=== PATIENT | female | born 1930 | race Caucasian/White ===

== ENCOUNTER 2016-08-07 22:56 | Observation (INO) | payer BC ==
[2016-08-07 23:09] VITALS: BMI 31.2
--- NOTE | 2016-08-07 23:48 | PDOC ---
History of Present Illness - General History Source: Patient Exam Limitations: No Limitations - History of Present Illness Initial Comments: 08/07/16 23:58 The patient is a 85 year old female with significant past medical history of hypertension, hyperlipidemia, CAD s/p cardiac stent (February 2016), gout, and seizure disorder who presents to the ED with SOB and abdominal bloating that began earlier today. Patient reports she was in her usual state of health when she felt short of breath with abdominal bloating. She states feeling relieved after belching, but her symptoms return shortly after. She denies diaphoresis, lightheadedness, chest pain, shoulder pain, arm pain, jaw pain, nausea, and vomiting. Patient was recently admitted for SOB about 1 month ago, where she was treated and discharge. She states her symptoms are consistent to when she had her stent inserted few months ago. The patient denies fever, chills, cough, abdominal pain, and diarrhea. Allergies: codeine Social History: No alcohol, tobacco, or drug use reported. Past Surgical History: stent 2015, herniated disc surgery 15 years ago, hysterectomy, lipoma removal on right shoulder PCP: Dr. Pb Zimmerman <Deb Robertson - Last Filed: 08/08/16 02:23> - General History Source: Patient <Andrew Beard - Last Filed: 08/08/16 19:23> - General Chief Complaint: Shortness of Breath Stated Complaint: SHORTNESS OF BREATH Time Seen by Provider: 08/07/16 23:48 Past History <Deb Robertson - Last Filed: 08/08/16 02:23> - Past Medical History HTN: Yes Hypercholesterolemia: Yes Seizures: Yes - Surgical History Cardiac Surgery: Yes (angioplasty) - Immunization History Immunization Up to Date: Yes - Psycho/Social/Smoking Cessation Hx Anxiety: No Suicidal Ideation: No Smoking History: Never smoked Number of Cigarettes Smoked Daily: 0 Information on smoking cessation initiated: No Hx Alcohol Use: No Drug/Substance Use Hx: No Substance Use Type: None <Andrew Beard - Last Filed: 08/08/16 19:23> - Past Medical History Allergies/Adverse Reactions: Allergies Allergy/AdvReac Type Severity Reaction Status Date / Time codeine Allergy Verified 08/07/16 23:03 Home Medications: Ambulatory Orders Allopurinol [Zyloprim -] 100 mg PO DAILY 07/13/16 Amitriptyline HCl [Elavil -] 25 mg PO HS 07/13/16 Amlodipine Besylate [Norvasc -] 10 mg PO DAILY 07/13/16 Aspirin [Ecotrin] 81 mg PO DAILY 07/13/16 Atorvastatin Calcium 40 mg PO HS 07/13/16 Cholecalciferol (Vitamin D3) [Vitamin D3 -] 1,000 unit PO DAILY 07/13/16 Clopidogrel Bisulfate [Clopidogrel] 75 mg PO DAILY 07/13/16 Colchicine [Colcrys] 0.6 mg PO DAILY 07/13/16 Cyanocobalamin (Vitamin B-12) [Vitamin B-12] 5,000 mcg SL DAILY 07/13/16 Divalproex Sodium [Depakote ER] 500 mg PO DAILY 07/13/16 Famotidine 20 mg PO DAILY 07/13/16 Metoprolol Tartrate 25 mg PO DAILY 07/13/16 Multivit-Min/FA/Lycopen/Lutein [Centrum Silver Tablet] 1 each PO DAILY 07/13/16 [place]-3/Dha/Epa/Fish Oil [Fish Oil 1,000 mg Softgel] 1,000 mg PO DAILY 07/13/16 Review of Systems - Review of Systems Able to Perform ROS?: Yes Comments:: 08/07/16 23:58 CONSTITUTIONAL: Absent: fever, chills, diaphoresis, generalized weakness, malaise, loss of appetite HEENT: Absent: rhinorrhea, nasal congestion, throat pain, throat swelling, difficulty swallowing, mouth swelling, ear pain, eye pain, visual Changes CARDIOVASCULAR: Absent: chest pain, syncope, palpitations, irregular heart rate, lightheadedness , peripheral edema RESPIRATORY: +SOB Absent: cough, dyspnea with exertion, orthopnea, wheezing, stridor, hemoptysis GASTROINTESTINAL: +abdominal bloating Absent: abdominal pain, nausea, vomiting, diarrhea, constipation, melena, hematochezia GENITOURINARY: Absent: dysuria, frequency, urgency, hesitancy, hematuria, flank pain, genital pain MUSCULOSKELETAL: Absent: myalgia, arthralgia, joint swelling SKIN: Absent: rash, itching, pallor NEUROLOGIC: Absent: headache, focal weakness or paresthesias, dizziness, unsteady gait, seizure, mental status changes, bladder or bowel incontinence PSYCHIATRIC: Absent: anxiety, depression, suicidal or homicidal ideation, hallucinations. <Deb Robertson - Last Filed: 08/08/16 02:23> *Physical Exam - Vital Signs Last Vital Signs Temp Pulse Resp BP Pulse Ox 97.8 F 84 14 115/81 97 08/07/16 23:04 08/07/16 23:04 08/07/16 23:04 08/07/16 23:04 08/07/16 23:04 - Physical Exam Comments: 08/07/16 23:59 GENERAL: Well developed, well nourished. Awake and alert. No acute distress. HEENT: Normocephalic, atraumatic. PERRLA, EOMI. No conjunctival pallor. Sclera are non- icteric. Moist mucous membranes. Oropharynx is clear. NECK: Supple. Full ROM. No JVD. Carotid pulses 2+ and symmetric, without bruits. No thyromegaly. No lymphadenopathy. CARDIOVASCULAR: Regular rate and rhythm. Systolic heart murmur. No rubs or gallops. Distal pulses are 2+ and symmetric. PULMONARY: No evidence of respiratory distress. Lungs clear to auscultation bilaterally. No wheezing, rales or rhonchi. ABDOMINAL: Soft. Non-tender. Distended. No rebound or guarding. No organomegaly. Normoactive bowel sounds. MUSCULOSKELETAL Normal range of motion at all joints. No bony deformities or tenderness. No CVA tenderness. EXTREMITIES: No cyanosis. No clubbing. Bilateral pedal edema. No calf tenderness. SKIN: Warm and dry. Normal capillary refill. No rashes. No jaundice. NEUROLOGICAL: Alert, awake, appropriate. Cranial nerves 2-12 intact. Moving all extremities. No focal neurological deficits. PSYCHIATRIC: Cooperative. Good eye contact. Appropriate mood and affect. <Deb Robertson - Last Filed: 08/08/16 02:23> - Vital Signs Last Vital Signs Temp Pulse Resp BP Pulse Ox 97.8 F 84 14 115/81 97 08/07/16 23:04 08/07/16 23:04 08/07/16 23:04 08/07/16 23:04 08/07/16 23:04 <Andrew Beard - Last Filed: 08/08/16 19:23> Heart Score/ECG Review - ECG Impressions Comment:: 08/08/16 00:45 NSR @75bpm Normal ECG <Deb Robertson - Last Filed: 08/08/16 02:23> ED Treatment Course - LABORATORY CBC & Chemistry Diagram: 08/08/16 00:08 08/08/16 00:08 <Deb Robertson - Last Filed: 08/08/16 02:23> - LABORATORY CBC & Chemistry Diagram: 08/08/16 00:08 08/08/16 00:08 <Andrew Beard - Last Filed: 08/08/16 19:23> Medical Decision Making - Medical Decision Making 08/08/16 02:[address] Pb Zimmerman (via answering service) at 2:06 Awaiting call back Case discussed with Dr. Zimmerman 2:07 08/08/16 02:[address] James Wyatt (via answering service) at 2:10 Awaiting call back Case discussed with Dr. Wyatt at 2:15 <Deb Robertson - Last Filed: 08/08/16 02:23> - Medical Decision Making 08/08/16 19:23 Dr. Beard: The scribe's documentation has been prepared under my direction and personally reviewed by me in its entirery. I confirm that the note above accurately reflects all work, treatment, procedures, and medical decision making performed by me. <Andrew Beard - Last Filed: 08/08/16 19:23> *DC/Admit/Observation/Transfer - Attestations Scribe Attestion: 08/07/16 23:59 Documentation prepared by Deb Robertson, acting as medical physicist for Andrew Beard MD <Deb Robertson - Last Filed: 08/08/16 02:23> - Discharge Dispostion Admit: Yes <Andrew Beard - Last Filed: 08/08/16 19:23> Diagnosis at time of Disposition: Chest pain - Referrals
[2016-08-08 00:16] LABS: BASOPHIL 0.3 % (0-2.0); EOSINOPHIL 1.6 % (0-4.5); MCH 30.2 pg (25.7-33.7); MCHC 33.3 g/dl (32.0-36.0); MEAN CELL VOLUME 90.8 fl (80-96); NEUTROPHILS 64.5 % (42.8-82.8); PLATELET COUNT 211 K/MM3 (134-434); WHITE BLOOD COUNT 4.6 K/mm3 (4.0-10.0)
[2016-08-08 00:30] LABS: INR 1.11 (0.82-1.09); PROTHROMBIN TIME (PATIENT) 12.2 SEC (9.98-11.88)
[2016-08-08 00:41] LABS: ALBUMIN 3.8 g/dl (3.4-5.0); ANION GAP 13 (8-16); CALCIUM 9.6 mg/dL (8.5-10.1); CO2 27 mmol/L (21-32); CREATININE 1.4 mg/dL (0.55-1.02); GLUCOSE,RANDOM 99 mg/dL (74-106); MAGNESIUM 2.4 mg/dL (1.8-2.4); SGOT/AST 28 U/L (15-37); SGPT/ALT 21 U/L (12-78)
[2016-08-08 00:45] LABS: ALK PHOS 78 U/L (45-117); BILIRUBIN,TOTAL 0.3 mg/dL (0.2-1.0); TOT PROT 7.2 g/dl (6.4-8.2); TROPONIN I < 0.02 ng/ml (0.00-0.05)
[2016-08-08 09:27] LABS: TROPONIN I < 0.02 ng/ml (0.00-0.05)
--- NOTE | 2016-08-08 09:43 | PN ---
Progress Note, Physician Chief Complaint: patient underwent single vessel PCI of LAD several months ago, mild to moderate disease in other vessels. Chronic diastolic dysfxn Now returns with epigastric fullness throughout course of day yesterday, relieved with burping. She was scared because her had similar sx before he sustained an MD and 11 years ago She denies chest pain, palps, PND, orthopnea, syncope. She does have mild and chronic PRESTON and exertional fatigue which has not changed. Denies melena or other sx of GI bleed. No new focal neuro sx. ECG is without acute changes. - Objective Vital Signs: Vital Signs Temperature 98.1 F 08/08/16 08:51 Pulse Rate 73 08/08/16 08:51 Respiratory Rate 16 08/08/16 08:51 Blood Pressure 137/73 08/08/16 08:51 O2 Sat by Pulse Oximetry (%) 97 08/08/16 08:51 Constitutional: Yes: No Distress, Calm, Anxious Eyes: Yes: Conjunctiva Clear, EOM Intact HENT: Yes: Atraumatic, Normocephalic Neck: Yes: Supple, Trachea Midline Cardiovascular: Yes: Regular Rate and Rhythm Respiratory: Yes: CTA Bilaterally (no rales or wheezing.) Gastrointestinal: Yes: Soft (nontender, no rebound or guarding tenderness.) Edema: No Neurological: Yes: Alert, Oriented Labs: INR, PTT INR 1.11 (0.82-1.09) 08/08/16 00:08 Laboratory Tests 08/08/16 08/08/16 08/08/16 00:08 00:08 08:52 WBC 4.6 Hgb 12.1 Hct 36.3 Plt Count 211 Potassium 4.3 Creatinine 1.4 H D Creatine Kinase 59 Pending Troponin I Pending B-Natriuretic Peptide 352.12 - ....Imaging X-ray: Report Reviewed (no acute dz) EKG: Image Reviewed (NSR, no acute changes) Assessment/Plan IMP: CAD s/p PCI of LAD several months ago w/ mild to moderate non-obbstructive residual disease Chronic diastolic dysfx, now euvolemic Anxiety with possible underlying depression Dyspepsia, doubt coronary in nature REC: 1. Serial cardiac enzymes to R/O MD, unlikely based on history, ECG and prior anatomy 2. ASA and Plavix 3. To repeat echo, assure no change in LV fxn and r/o pericardial disease 4. Trial of PPI 5. Will review angiogram, but likely plan for discharge after full compliment of cardiac enzymes and if echo stable.
[2016-08-08] MEDS ORDERED: amLODIPine BESYLATE 10 MG TABLET (FP) PO SCH (10:00)
[2016-08-08 12:26] LABS: THYROID STIMULATING HORMONE 3.75 uIU/ml (0.358-3.74)
[2016-08-08] MEDS: ASPIRIN 81 MG CHEWABLE TABLETS PO SCH (13:00)
[2016-08-08] MEDS: METOPROLOL SUCCINATE 25 MG TAB.SR.24H (FP) PO SCH (13:00)
[2016-08-08] MEDS: CLOPIDOGREL BISULFATE 75 MG TABLET (FP) PO SCH (13:00)
[2016-08-08] MEDS: PANTOPRAZOLE 40 MG TABLET (FP) PO SCH (13:00)
[2016-08-08] MEDS: amLODIPine BESYLATE 5 MG TABLET (FP) PO SCH (13:00)
[2016-08-08] MEDS: DIVALPROEX NA *ER* EXTEND REL 500 MG TABLET.SA (FP) PO SCH (13:00)
[2016-08-08] MEDS ORDERED: amLODIPine BESYLATE 5 MG TABLET (FP) ONE (13:22)
[2016-08-08] MEDS ORDERED: ASPIRIN 81 MG CHEWABLE TABLETS ONE (13:22)
[2016-08-08] MEDS ORDERED: METOPROLOL SUCCINATE 50 MG TAB.SR.24H (FP) ONE (13:22)
[2016-08-08] MEDS ORDERED: CLOPIDOGREL BISULFATE 75 MG TABLET (FP) ONE (13:23)
[2016-08-08] MEDS ORDERED: FERROUS SO4 325 MG TABLET (FP) ONE (13:23)
--- NOTE | 2016-08-08 15:32 | EKG ---
Test Reason : Blood Pressure : / mmHG Vent. Rate : 077 BPM Atrial Rate : 077 BPM P-R Int : 158 ms QRS Dur : 098 ms QT Int : 424 ms P-R-T Axes : 030 -01 011 degrees QTc Int : 479 ms NORMAL SINUS RHYTHM NORMAL ECG WHEN COMPARED WITH ECG OF 08-AUG-2016 00:18, NONSPECIFIC T WAVE ABNORMALITY NO LONGER EVIDENT IN ANTERIOR LEADS Confirmed by QAMAR CISNEROS, QUIANA ([id number]) on 08/08/2016 3:31:48 PM Referred By: BRIAN GIBBONS,[facility] [place] Confirmed By:QUIANA FOOTE MD
--- NOTE | 2016-08-08 15:34 | EKG ---
Test Reason : Blood Pressure : / mmHG Vent. Rate : 075 BPM Atrial Rate : 075 BPM P-R Int : 166 ms QRS Dur : 100 ms QT Int : 424 ms P-R-T Axes : 030 000 024 degrees QTc Int : 473 ms NORMAL SINUS RHYTHM NORMAL ECG WHEN COMPARED WITH ECG OF 12-JUL-2016 23:56, NO SIGNIFICANT CHANGE WAS FOUND Confirmed by QUIANA FOOTE MD ([id number]) on 08/08/2016 3:34:12 PM Referred By: Confirmed By:QUIANA FOOTE MD
[2016-08-08 15:50] LABS: TROPONIN I < 0.02 ng/ml (0.00-0.05)
--- NOTE | 2016-08-08 17:23 | HP ---
Admitting History and Physical - Primary Care Physician PCP: Pb Zimmerman - Admission Chief Complaint: retrosternal discomfort History of Present Illness: 85 year old female with significant past medical history of hypertension (w/ CKD ), hyperlipidemia, CAD s/p cardiac stent (February 2016), gout, and (?)seizure disorder who presents to the ED with SOB and abdominal bloating that began earlier today. Patient reports she was in her usual state of health when she felt short of breath with abdominal bloating. She states feeling relieved after belching, but did not resolve. She denies diaphoresis, lightheadedness, chest pain, shoulder pain, arm pain, jaw pain, nausea, and vomiting, but does admit to get diffuse symmetric aches & pains at HS (not new). Patient was recently told by dr Wyatt (1 week ago) to reduce the dose of the Norvasc presumable due to BP being too low. She felt "okay" until today. She was admitted for SOB about 1 month ago, but no new issues discovered and was discharged. On speaking with her daughter, she describes her being anxious ( which is the case most of the time). She does not have any chest discomfort at this time. 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 Cardiovascular: Yes: CAD (s/p PCI 02/2016 [facility]), HTN, Hyperlipdemia Gastrointestinal: Yes: Constipation, Diverticulosis, GERD Renal/: Yes: Renal Inusuff ...: No Heme/Onc: Yes: Anemia Psych: Yes: Depression Musculoskeletal: Yes: Osteoarthritis Endocrine: Yes: Osteopenia, Other - Past Surgical History Past Surgical History: Yes: Hernia Repair (spine surgery for disc hernaition Lipoma excized cataracts) Additional Past Surgical History: angioplasty - Advance Directives Advance Directives: Yes: Health Care Proxy - Smoking History Smoking history: Never smoked Aproximately how many cigarettes per day: 0 - Alcohol/Substance Use Hx Alcohol Use: No History of Substance Use: reports: None - Social History Usual Living Arrangement: Yes: Other (with son) ADL: Family Assistance History of Recent Travel: No Home Medications - Allergies Allergies/Adverse Reactions: Allergies Allergy/AdvReac Type Severity Reaction Status Date / Time codeine Allergy Verified 08/07/16 23:03 - Home Medications Home Medications: Ambulatory Orders Allopurinol [Zyloprim -] 100 mg PO DAILY 07/13/16 Amitriptyline HCl [Elavil -] 25 mg PO HS 07/13/16 Amlodipine Besylate [Norvasc -] 10 mg PO DAILY 07/13/16 Aspirin [Ecotrin] 81 mg PO DAILY 07/13/16 Atorvastatin Calcium 40 mg PO HS 07/13/16 Cholecalciferol (Vitamin D3) [Vitamin D3 -] 1,000 unit PO DAILY 07/13/16 Clopidogrel Bisulfate [Clopidogrel] 75 mg PO DAILY 07/13/16 Colchicine [Colcrys] 0.6 mg PO DAILY 07/13/16 Cyanocobalamin (Vitamin B-12) [Vitamin B-12] 5,000 mcg SL DAILY 07/13/16 Divalproex Sodium [Depakote ER] 500 mg PO DAILY 07/13/16 Famotidine 20 mg PO DAILY 07/13/16 Metoprolol Tartrate 25 mg PO DAILY 07/13/16 Multivit-Min/FA/Lycopen/Lutein [Centrum Silver Tablet] 1 each PO DAILY 07/13/16 [place]-3/Dha/Epa/Fish Oil [Fish Oil 1,000 mg Softgel] 1,000 mg PO DAILY 07/13/16 Family Disease History - Family Disease History Family Disease History: Diabetes: Father, Brother, Sister, Heart Disease: Mother , Other: Son (HTN), Daughter (HTN) Review of Systems - Review of Systems Constitutional: reports: Malaise Eyes: reports: No Symptoms HENT: reports: No Symptoms Neck: reports: No Symptoms Cardiovascular: reports: Shortness of Breath (see HPI) Respiratory: reports: SOB Gastrointestinal: reports: No Symptoms Genitourinary: reports: Urgency Breasts: reports: No Symptoms Reported Musculoskeletal: reports: Extremity Pain, Muscle Pain Integumentary: reports: No Symptoms Neurological: reports: Unsteady Gait Hematology/Lymphatic: reports: No Symptoms Psychiatric: reports: Anxiety Physical Examination Vital Signs: Vital Signs Temperature 98 F 08/08/16 13:13 Pulse Rate 87 08/08/16 13:13 Respiratory Rate 20 08/08/16 13:13 Blood Pressure 143/72 08/08/16 13:13 O2 Sat by Pulse Oximetry (%) 97 08/08/16 13:13 Findings/Remarks: skin--no acute lesions head--NC eyes--eomi; midline oral--no acute mucosal lesions neck--no masses, supple; no bruits lungs--clear heart--RR distant breasts--no dom masses abd--obese, NT, ND back--no CVAT; no brandy tenderness ext--no CCE; degen changes; diminished pulses.No ischemic changes neuro--alert; anxious coherent; speech pressured; fully awake; fluent speech; no delusional; no gross focal motor/sens deficits; no tremors Labs: CBC, BMP 08/08/16 16:30 Imaging - Results Chest X-ray: Report Reviewed EKG: Report Reviewed Problem List - Problems (1) Shortness of breath Assessment/Plan: abrupt onset of what appears to be SOB; but cause uncertain. Could be 2nd dyspepsia; anxiety dz. Dr Wyatt does not feel that this is due to a cardiac cause, as EKG, enzymes, are WNL, as is oxygen sat. Code(s): R06.02 - SHORTNESS OF BREATH (2) Coronary atherosclerosis due to calcified coronary lesion Assessment/Plan: s/p stenting in 2016 (see cardio note) cont anti-PLT agents Code(s): I25.10 - ATHSCL HEART DISEASE OF [place] CORONARY ARTERY W/O ANG PCTRS I25.84 - CORONARY ATHEROSCLEROSIS DUE TO CALCIFIED CORONARY LESION (3) Epigastric abdominal pain Assessment/Plan: not clear if this is the cause of her current complaint; will Rx PPI Code(s): R10.13 - EPIGASTRIC PAIN (4) History of seizure disorder Assessment/Plan: longstanding; nature of this presumed seizure Dz unknown; though cannot r/o full blown panic attack mimiicking a seizure. She may need Depakote merely as a "mood stabilizer". Code(s): Z86.69 - PERSONAL HISTORY OF DIS OF THE NERVOUS SYS AND SENSE ORGANS (5) Hypertension, renal disease Assessment/Plan: dose of the CCB, was recently adjusted by Cardiology. BP seems to be inrange at this time. Bun/Cr is also stable range-bauer. Code(s): I12.9 - HYPERTENSIVE CHRONIC KIDNEY DISEASE W STG 1-4/UNSP CHR KDNY Qualifiers: Hypertensive chronic kidney disease stage: stage 1-4 or unspecified chronic kidney disease Qualified Code(s): I12.9 - Hypertensive chronic kidney disease with stage 1 through stage 4 chronic kidney disease, or unspecified chronic kidney disease (6) Osteoarthritis involving multiple joints on both sides of body Assessment/Plan: longstanding and chronically bothered by aches and pains, significantly impacting on her lifestyle and mobility. For which she was likely placed on TCA. Efforts to switch to other agents were not successfull, though not sure how effect this agent is now. She may have a component of (fibro) myalgia as well. Code(s): M15.9 - POLYOSTEOARTHRITIS, UNSPECIFIED (7) Imbalance Assessment/Plan: 2nd OA of knees Code(s): R26.89 - OTHER ABNORMALITIES OF GAIT AND MOBILITY (8) Hyperlipidemia Assessment/Plan: cont statin Code(s): E78.5 - HYPERLIPIDEMIA, UNSPECIFIED Qualifiers: Hyperlipidemia type: unspecified Qualified Code(s): E78.5 - Hyperlipidemia, unspecified (9) Hyperuricemia Assessment/Plan: without gout; on allopurinol; levels are WNL Code(s): E79.0 - HYPERURICEMIA W/O SIGNS OF INFLAM ARTHRIT AND TOPHACEOUS DIS (10) Anxiety and depression Assessment/Plan: longstanding; easily triggered by various stressors. PLAN: will try BUSPAR Code(s): F41.9 - ANXIETY DISORDER, UNSPECIFIED F32.9 - MAJOR DEPRESSIVE DISORDER, SINGLE EPISODE, UNSPECIFIED Assessment/Plan The patient is a 85 year old female with significant past medical history of hypertension, hyperlipidemia, CAD s/p cardiac stent (February 2016), gout, and seizure disorder who presents to the ED with SOB and abdominal bloating the cause of which is unclear, but will need to observe further. If stable will likely d/c on 08/10/16 ~~~~~~~~~~~~~~~~~~~~~~~~~~~ Dr Zimmerman...........1 Hr
[2016-08-08] MEDS: MAG HYDROX/AL HYDROX/SIMETH 30 ML UNIT-DOSE CUP PO SCH ×2 (18:21→23:25)
[2016-08-08 20:44] LABS: URINE APPEARANCE CLEAR; URINE BILIRUBIN NEGATIVE (NEGATIVE); URINE BLOOD NEGATIVE (NEGATIVE); URINE COLOR YELLOW; URINE GLUCOSE (UA) NEGATIVE (NEGATIVE); URINE KETONE NEGATIVE (NEGATIVE); URINE LEUK ESTERASE NEGATIVE (NEGATIVE); URINE NITRITE NEGATIVE (NEGATIVE); URINE PROTEIN NEGATIVE (NEGATIVE); URINE UROBILINOGEN NEGATIVE E.U./dl (0.2-1.0)
[2016-08-08] MEDS ORDERED: AMITRIPTYLINE HCL 50 MG TABLET PO SCH (22:00)
[2016-08-08] MEDS ORDERED: ATORVASTATIN CA 40 MG TABLET (FP) PO SCH (22:00)
[2016-08-08] MEDS ORDERED: AMITRIPTYLINE HCL 25 MG TABLET (FP) PO SCH (22:15)
[2016-08-08] MEDS: busPIRone HCL 5 MG TABLET PO SCH (23:25)
[2016-08-08] MEDS: OMEGA-3 ACID ETHYL ESTERS (FATTY-ACIDS) 1 GM CAPSULE (FP) PO SCH (23:25)
[2016-08-09] MEDS: MAG HYDROX/AL HYDROX/SIMETH 30 ML UNIT-DOSE CUP PO SCH ×2 (05:42→15:09)
[2016-08-09 07:37] LABS: CALCIUM 8.6 mg/dL (8.5-10.1); CREATININE 1.3 mg/dL (0.55-1.02)
[2016-08-09 07:38] LABS: FREE T4 1.09 ng/dl (0.76-1.46)
--- NOTE | 2016-08-09 09:19 | PN ---
Progress Note, Physician Chief Complaint: Cardiac enzymes negative x 3 TELE: NSR Echo: reviewed, normal LV - Current Medication List Current Medications: Active Medications Al Hydroxide/Mg Hydroxide (Mylanta Oral Suspension -) 30 ml PO TID [facility] Last Admin: 08/09/16 05:42 Dose: Not Given Allopurinol (Zyloprim -) 100 mg PO DAILY [facility] Amitriptyline HCl (Elavil -) 50 mg PO HS [facility] Last Admin: 08/08/16 23:25 Dose: 50 mg Amlodipine Besylate (Norvasc -) 5 mg PO DAILY [facility] Last Admin: 08/08/16 13:00 Dose: 5 mg Aspirin (Asa -) 81 mg PO DAILY [facility] Last Admin: 08/08/16 13:00 Dose: 81 mg Atorvastatin Calcium (Lipitor -) 40 mg PO HS [facility] Last Admin: 08/08/16 23:25 Dose: 40 mg Buspirone HCl (Buspar -) 5 mg PO BID [facility] Last Admin: 08/08/16 23:25 Dose: 5 mg Clopidogrel Bisulfate (Plavix -) 75 mg PO DAILY [facility] Last Admin: 08/08/16 13:00 Dose: 75 mg Divalproex Sodium (Depakote *Er* -) 500 mg PO DAILY [facility] Last Admin: 08/08/16 13:00 Dose: 500 mg Metoprolol Succinate (Toprol Xl -) 25 mg PO DAILY [facility] Last Admin: 08/08/16 13:00 Dose: 25 mg [id number] Ethyl Esters (Lovaza -) 2 gm PO BID [facility] Last Admin: 08/08/16 23:25 Dose: 2 gm Pantoprazole Sodium (Protonix -) 40 mg PO DAILY [facility] Last Admin: 08/08/16 13:00 Dose: 40 mg - Objective Vital Signs: Vital Signs Temperature 97.8 F 08/09/16 06:41 Pulse Rate 77 08/09/16 06:41 Respiratory Rate 17 08/09/16 06:41 Blood Pressure 136/83 08/09/16 06:41 O2 Sat by Pulse Oximetry (%) 96 08/09/16 06:41 Constitutional: Yes: No Distress, Calm Cardiovascular: Yes: Regular Rate and Rhythm Respiratory: Yes: CTA Bilaterally Gastrointestinal: Yes: Soft Edema: No Neurological: Yes: Alert, Oriented Labs: CBC, BMP 08/09/16 05:35 INR, PTT INR 1.11 (0.82-1.09) 08/08/16 00:08 Laboratory Tests 08/08/16 08/08/16 08/08/16 00:08 00:08 08:52 WBC 4.6 Hct 36.3 Plt Count 211 Potassium BUN Creatinine Creatine Kinase 59 47 Troponin I < 0.02 < 0.02 08/08/16 08/09/16 15:00 05:35 WBC Hct Plt Count Potassium 3.7 BUN 34 H Creatinine 1.3 H Creatine Kinase 113 Troponin I < 0.02 - ....Imaging EKG: Image Reviewed Assessment/Plan IMP: CAD s/p PCI of LAD several months ago w/ mild to moderate non-obbstructive residual disease Chronic diastolic dysfx, now euvolemic Anxiety with possible underlying depression Dyspepsia, doubt coronary in nature REC: Ruled out for [place], Echo unchanged. No arrhythmias. Would plan for d/c on lower dose of amlodipine, 5mg daily: I had lowered it in office last week because of relatively low BP (105/60) and bilateral lower extremity edema with a plan to re-evaluate in 3 weeks. BP trend seems improved and he edema has also improved.
[2016-08-09] MEDS: OMEGA-3 ACID ETHYL ESTERS (FATTY-ACIDS) 1 GM CAPSULE (FP) PO SCH (09:22)
[2016-08-09] MEDS: ASPIRIN 81 MG CHEWABLE TABLETS PO SCH (09:23)
[2016-08-09] MEDS: CLOPIDOGREL BISULFATE 75 MG TABLET (FP) PO SCH (09:24)
[2016-08-09] MEDS: amLODIPine BESYLATE 5 MG TABLET (FP) PO SCH (09:25)
[2016-08-09] MEDS: DIVALPROEX NA *ER* EXTEND REL 500 MG TABLET.SA (FP) PO SCH (09:26)
[2016-08-09] MEDS: PANTOPRAZOLE 40 MG TABLET (FP) PO SCH (09:26)
[2016-08-09] MEDS: busPIRone HCL 5 MG TABLET PO SCH (09:26)
[2016-08-09] MEDS: METOPROLOL SUCCINATE 25 MG TAB.SR.24H (FP) PO SCH (09:28)
[2016-08-09] MEDS ORDERED: ALLOPURINOL 100 MG TABLET (FP) PO SCH (10:00)
--- NOTE | 2016-08-09 15:55 | DS ---
Physical Examination Vital Signs: Vital Signs Temperature 98 F 08/09/16 09:21 Pulse Rate 84 08/09/16 09:21 Respiratory Rate 18 08/09/16 09:21 Blood Pressure 118/60 08/09/16 09:21 O2 Sat by Pulse Oximetry (%) 96 08/09/16 11:00 Constitutional: Yes: Well Nourished, No Distress, Anxious Eyes: Yes: Conjunctiva Clear Neck: Yes: Supple Cardiovascular: Yes: Regular Rate and Rhythm Respiratory: Yes: Regular, Diminished Gastrointestinal: Yes: Normal Bowel Sounds, Soft Musculoskeletal: Yes: Joint Stiffness Extremities: Yes: WNL Edema: No Peripheral Pulses WNL: Yes Integumentary: Yes: WNL Neurological: Yes: WNL, Alert, Oriented, Cran Nerves II-XII Intact, Unsteady Gait ...Motor Strength: WNL Psychiatric: Yes: WNL Labs: CBC, BMP 08/09/16 05:35 Discharge Summary Reason For Visit: CHEST PAIN Current Active Problems Anxiety and depression (Acute) Chest pain (Acute) Hyperuricemia (Acute) Atherosclerosis ASHD Seizure Hx Chronic kidney dz Dyspepsia Lipidemia CAD Hypertension Hospital Course: brought into ER because she was feeling "ill". The complaint seem to center around her feeling dyspneic and having gas & bloating. She may have gotten upset in the hours following her arrival. In the ER, her VSS and there were no acute changes in her status. The cardiac enzymes were negative and no significant EKG changes were seen. the problem she arrived with abated at the same time she arrived. She was seen by Cardiology who did not feel she needed any cardiac studies. He advised to check BP checked to make sure she is not experiencing low BP states. She was started on anxiolytic prior to d/c and will cont as OP. Condition: Improved - Instructions Diet, Activity, Other Instructions: low salt; moderate fluid intake; cut back on caffeine drinks. Referrals: Pb Zimmerman MD [Primary Care Provider] - Disposition: VNS/HOME HEALTH CARE - Home Medications Comprehensive Discharge Medication List: Ambulatory Orders Allopurinol [Zyloprim -] 100 mg PO DAILY 07/13/16 Aspirin [Ecotrin] 81 mg PO DAILY 07/13/16 Atorvastatin Calcium 40 mg PO HS 07/13/16 Cholecalciferol (Vitamin D3) [Vitamin D3 -] 1,000 unit PO DAILY 07/13/16 Clopidogrel Bisulfate [Clopidogrel] 75 mg PO DAILY 07/13/16 Colchicine [Colcrys] 0.6 mg PO DAILY 07/13/16 Cyanocobalamin (Vitamin B-12) [Vitamin B-12] 5,000 mcg SL DAILY 07/13/16 Divalproex Sodium [Depakote ER] 500 mg PO DAILY 07/13/16 Famotidine 20 mg PO DAILY 07/13/16 Metoprolol Tartrate 25 mg PO DAILY 07/13/16 Multivit-Min/FA/Lycopen/Lutein [Centrum Silver Tablet] 1 each PO DAILY 07/13/16 [place]-3/Dha/Epa/Fish Oil [Fish Oil 1,000 mg Softgel] 1,000 mg PO DAILY 07/13/16 Amitriptyline HCl [Elavil -] 50 mg PO HS tablet 08/09/16 Amlodipine Besylate [Norvasc -] 5 mg PO DAILY tablet 08/09/16 Buspirone HCl [Buspar -] 5 mg PO BID #60 tablet 08/09/16
[2016-08-09] MEDS ORDERED: busPIRone HCL 5 MG TABLET PO STA (15:57)
[2016-08-09 16:15] VITALS: BP 127/68; PULSE 72; TEMP 97.6
== END 2016-08-09 16:43 | disposition home health service (06) ==
LOC: JER 22:56 → JERBED 08-08 02:24 → J4W 08-08 21:51
PROVIDERS: ADMIT Internal Medicine; ATTEND Internal Medicine
DX: R07.9 Chest pain, unspecified (principal); I25.10 Atherosclerotic heart disease of native coronary artery without angina pectoris; Z98.61 Coronary angioplasty status; F41.9 Anxiety disorder, unspecified; F32.9 Major depressive disorder, single episode, unspecified; I12.9 Hypertensive chronic kidney disease with stage 1 through stage 4 chronic kidney disease, or unspecified chronic kidney disease; N18.9 Chronic kidney disease, unspecified; E78.5 Hyperlipidemia, unspecified; R10.13 Epigastric pain
CPT/HCPCS: 36415; 71010-TC; 80048; 80053; 81003; 82550; 83690; 83735; 83880; 84439; 84443; 84484; 84550; 85025; 85610; 93005; 93010; 93306-TC; 99285-25; G0378

== ENCOUNTER 2016-11-21 22:52 | Emergency (ER) | payer BC ==
[2016-11-21 23:15] VITALS: BMI 32.2
--- NOTE | 2016-11-21 23:19 | PDOC ---
History of Present Illness - General History Source: Patient Exam Limitations: No Limitations - History of Present Illness Initial Comments: 11/22/16 00:01 The patient is a 86 year old female with significant past medical history of hypertension (with CKD), hyperlipidemia, CAD s/p cardiac stent (February 2016), gout, and seizure disorder who presents to the ED for 1 day of persistent belching. Patient reports she has had multiple episodes of persistent belching with associated mild dizziness. Denies lightheadedness, diaphoresis, chest pain , palpitations, SOB, jaw pain, shoulder pain, arm pain, nausea, or vomiting. States taking mylanta with no resolution. Patient reports due to previous h/o of similar symptoms, a cardiovascular procedure done. The patient denies fever, chills, cough, abdominal pain and diarrhea. Allergies: codeine Social History: No alcohol, tobacco, or drug use reported. Past Surgical History: stent 2015, herniated disc surgery 15 years ago, hysterectomy, lipoma removal on right shoulder PCP: Dr. Pb Zimmerman <Deb Robertson - Last Filed: 11/22/16 00:01> - General History Source: Patient <Andrew Beard - Last Filed: 11/22/16 05:59> - General Chief Complaint: Pain, Acute Stated Complaint: PAIN/LIGHTHEADED Time Seen by Provider: 11/21/16 23:03 Past History <Deb Robertson - Last Filed: 11/22/16 00:01> - Past Medical History Cardiac Disorders: Yes (STENT 2015) HTN: Yes Hypercholesterolemia: Yes Seizures: Yes - Surgical History Cardiac Surgery: Yes (angioplasty) Orthopedic Surgery: Yes (HERNIATED DISC) - Immunization History Immunization Up to Date: Yes - Psycho/Social/Smoking Cessation Hx Anxiety: No Suicidal Ideation: No Smoking History: Never smoked Number of Cigarettes Smoked Daily: 0 Hx Alcohol Use: No Drug/Substance Use Hx: No Substance Use Type: None <Andrew Beard - Last Filed: 11/22/16 05:59> - Past Medical History Allergies/Adverse Reactions: Allergies Allergy/AdvReac Type Severity Reaction Status Date / Time acetaminophen Allergy Verified 11/22/16 00:33 [From Tylenol-Codeine] aspirin Allergy Verified 11/22/16 00:33 codeine phosphate Allergy Verified 11/22/16 00:33 [From Tylenol-Codeine] Home Medications: Ambulatory Orders Allopurinol [Zyloprim -] 100 mg PO DAILY 07/13/16 Aspirin [Ecotrin] 81 mg PO DAILY 07/13/16 Atorvastatin Calcium 40 mg PO HS 07/13/16 Cholecalciferol (Vitamin D3) [Vitamin D3 -] 1,000 unit PO DAILY 07/13/16 Clopidogrel Bisulfate [Clopidogrel] 75 mg PO DAILY 07/13/16 Colchicine [Colcrys] 0.6 mg PO DAILY 07/13/16 Cyanocobalamin (Vitamin B-12) [Vitamin B-12] 5,000 mcg SL DAILY 07/13/16 Divalproex Sodium [Depakote ER] 500 mg PO DAILY 07/13/16 Famotidine 20 mg PO DAILY 07/13/16 Metoprolol Tartrate 25 mg PO DAILY 07/13/16 Multivit-Min/FA/Lycopen/Lutein [Centrum Silver Tablet] 1 each PO DAILY 07/13/16 [place]-3/Dha/Epa/Fish Oil [Fish Oil 1,000 mg Softgel] 1,000 mg PO DAILY 07/13/16 Amitriptyline HCl [Elavil -] 50 mg PO HS tablet 08/09/16 Amlodipine Besylate [Norvasc -] 5 mg PO DAILY tablet 08/09/16 Buspirone HCl [Buspar -] 5 mg PO BID #60 tablet 08/09/16 Review of Systems - Review of Systems Able to Perform ROS?: Yes Comments:: 11/22/16 00:01 CONSTITUTIONAL: Absent: fever, no chills, no fatigue EYES: Absent: visual changes ENT: Absent: ear pain, no sore throat CARDIOVASCULAR: Absent: chest pain, no palpitations RESPIRATORY: Absent: cough, no SOB GI: +belching Absent: abdominal pain, no nausea, no vomiting, no constipation, no diarrhea GENITOURINARY: Absent: dysuria, no frequency, no hematuria MUSCULOSKELETAL: Absent: back pain, no arthralgia, no myalgia SKIN: Absent: rash NEURO: +slight dizziness Absent: headache <RizwanarrDeb fallon - Last Filed: 11/22/16 00:01> *Physical Exam - Vital Signs Last Vital Signs Temp Pulse Resp BP Pulse Ox 98 F 82 18 158/86 94 L 11/21/16 23:08 11/21/16 23:08 11/21/16 23:08 11/21/16 23:08 11/21/16 23:08 - Physical Exam Comments: 11/22/16 00:01 GENERAL: Well-appearing, well-nourished. No apparent distress. HEENT: Normocephalic, atraumatic. PERRL, EOM intact. CARDIOVASCULAR: Normal S1, S2. Regular rate and rhythm. PULMONARY: Clear to auscultation bilaterally. ABDOMEN: Soft, non-distended, non-tender. EXTREMITIES: Normal ROM in all four extremities. No gross deformities. SKIN: Warm, dry. No rash NEUROLOGICAL: No focal neurological deficits. <Deb Robertson - Last Filed: 11/22/16 00:01> - Vital Signs Last Vital Signs Temp Pulse Resp BP Pulse Ox 98 F 82 18 158/86 94 L 11/21/16 23:08 11/21/16 23:08 11/21/16 23:08 11/21/16 23:08 11/21/16 23:08 <Andrew Beard - Last Filed: 11/22/16 05:59> Heart Score/ECG Review - ECG Impressions Comment:: 11/21/16 23:29 Accelerated Junctional rhythm @81bpm ST elevation, consider early repolarization, pericarditis, or injury Abnormal ECG <Deb Robertson - Last Filed: 11/22/16 00:01> ED Treatment Course - LABORATORY CBC & Chemistry Diagram: 11/22/16 03:03 11/22/16 03:00 <Andrew Beard - Last Filed: 11/22/16 05:59> Medical Decision Making - Medical Decision Making 11/22/16 05:59 Dr. Beard: The scribe's documentation has been prepared under my direction and personally reviewed by me in its entirery. I confirm that the note above accurately reflects all work, treatment, procedures, and medical decision making performed by me. <Andrew Beard - Last Filed: 11/22/16 05:59> *DC/Admit/Observation/Transfer - Attestations Scribe Attestion: 11/22/16 00:01 Documentation prepared by Deb Robertson, acting as medical billing associate for Andrew Beard MD/DO. <Deb Robertson - Last Filed: 11/22/16 00:01> - Discharge Dispostion Admit: No <Andrew Beard - Last Filed: 11/22/16 05:59> Diagnosis at time of Disposition: Lightheadedness - Discharge Dispostion Disposition: HOME Condition at time of disposition: Stable - Referrals Referrals: Russ Mcgovern MD [Primary Care Provider] - - Patient Instructions Printed Discharge Instructions: DI for Dizziness-Nonvertigo
[2016-11-21] MEDS ORDERED: PANTOPRAZOLE SODIUM 40 MG in SODIUM CHLORIDE 100 ML IVPB ONE (23:59)
[2016-11-22] MEDS ORDERED: PANTOPRAZOLE SODIUM 100 ML IVPB ONE (00:37)
[2016-11-22 00:53] LABS: URINE APPEARANCE CLEAR; URINE BILIRUBIN NEGATIVE (NEGATIVE); URINE BLOOD NEGATIVE (NEGATIVE); URINE COLOR COLORLESS; URINE GLUCOSE (UA) NEGATIVE (NEGATIVE); URINE KETONE NEGATIVE (NEGATIVE); URINE LEUK ESTERASE NEGATIVE (NEGATIVE); URINE NITRITE NEGATIVE (NEGATIVE); URINE PROTEIN NEGATIVE (NEGATIVE); URINE UROBILINOGEN NEGATIVE E.U./dl (0.2-1.0)
[2016-11-22 03:35] LABS: BASOPHIL 0.3 % (0-2.0); EOSINOPHIL 2.3 % (0-4.5); MCH 30.2 pg (25.7-33.7); MCHC 32.9 g/dl (32.0-36.0); MEAN PLT VOLUME 8.5 fl (7.5-11.1); PLATELET COUNT 193 K/MM3 (134-434); RDW 15.1 % (11.6-15.6); WHITE BLOOD COUNT 4.4 K/mm3 (4.0-10.0)
[2016-11-22 03:52] LABS: INR 1.04 (0.82-1.09); PROTHROMBIN TIME (PATIENT) 11.5 SEC (9.98-11.88)
[2016-11-22 04:01] LABS: ALBUMIN 3.5 g/dl (3.4-5.0); AMYLASE 81 U/L (25-115); ANION GAP 11 (8-16); BILIRUBIN,TOTAL 0.4 mg/dL (0.2-1.0); CALCIUM 9.4 mg/dL (8.5-10.1); CO2 29 mmol/L (21-32); COCKROFT - GAULT 47.7105; GLUCOSE,RANDOM 94 mg/dL (74-106); MAGNESIUM 2.4 mg/dL (1.8-2.4); SGOT/AST 24 U/L (15-37); SGPT/ALT 21 U/L (12-78)
[2016-11-22 04:02] LABS: ALK PHOS 87 U/L (45-117); TROPONIN I < 0.02 ng/ml (0.00-0.05)
[2016-11-22 06:37] VITALS: BP 148/82; PULSE 79; TEMP 97.6
--- NOTE | 2016-11-22 10:23 | EKG ---
Test Reason : Blood Pressure : / mmHG Vent. Rate : 081 BPM Atrial Rate : 078 BPM P-R Int : 000 ms QRS Dur : 116 ms QT Int : 382 ms P-R-T Axes : 000 006 020 degrees QTc Int : 443 ms NORMAL SINUS RHYTHM POOR DATA QUALITY, INTERPRETATION MAY BE ADVERSELY AFFECTED Confirmed by VERENA TAPIA MD ([id number]) on 11/22/2016 10:23:23 AM Referred By: Confirmed By:VERENA TAPIA MD
== END 2016-11-22 07:00 | disposition home or self-care (01) ==
LOC: SUPCPDRO 22:52 → JER 22:52
PROC: 3E033GC Introduction of Other Therapeutic Substance into Peripheral Vein, Percutaneous Approach (ICD-10-PCS; principal; 2016-11-21)
DX: R42 Dizziness and giddiness (principal); I25.10 Atherosclerotic heart disease of native coronary artery without angina pectoris; I13.10 Hypertensive heart and chronic kidney disease without heart failure, with stage 1 through stage 4 chronic kidney disease, or unspecified chronic kidney disease; N18.9 Chronic kidney disease, unspecified; Z95.5 Presence of coronary angioplasty implant and graft; G40.909 Epilepsy, unspecified, not intractable, without status epilepticus
CPT/HCPCS: 36415; 71010-TC; 80053; 81003; 82150; 82550; 83690; 83735; 83880; 84484; 85025; 85610; 93005; 93010; 99283-25

== ENCOUNTER 2016-12-02 08:08 | Observation (INO) | payer BC ==
[2016-12-02 08:23] VITALS: BMI 31.2
--- NOTE | 2016-12-02 09:07 | PDOC ---
History of Present Illness - General Chief Complaint: Chest Pain Stated Complaint: CHEST PAIN, SOB Time Seen by Provider: 12/02/16 08:34 History Source: Patient Exam Limitations: No Limitations - History of Present Illness Initial Comments: 12/02/16 09:07 CHIEF COMPLAINT: Fall HISTORY OF PRESENT ILLNESS: This is an 86 year old female with a history of CAD s/p stent, HTN, dyslipidemia, seizure disorder, and gout who presents to the ED after a fall last night. She reports that she got out of bed to go to the bathroom yesterday when she fell forward on to both knees. She denies head trauma and neck pain. She reports that she developed chest pain right after the fall which has been present since then. She has some associated shortness of breath. PCP is Dr. Zimmerman. Nuclear stress 02/2016: Mild to moderate apical ischemia REVIEW OF SYSTEMS: GENERAL/CONSTITUTIONAL: No fever or chills. No weakness. No weight change. HEAD, EYES, EARS, NOSE AND THROAT: No change in vision. No ear pain or discharge. No sore throat. CARDIOVASCULAR: Chest pain, shortness of breath. RESPIRATORY: No cough, wheezing, or shortness of breath. GASTROINTESTINAL: No nausea, vomiting, diarrhea or constipation. GENITOURINARY: No dysuria, frequency, or change in urination. MUSCULOSKELETAL: No joint or muscle swelling or pain. No neck or back pain. SKIN: No rash or easy bruising. NEUROLOGIC: No headache, vertigo, loss of consciousness, or loss of sensation. PSYCHIATRIC: No depression or anxiety. ENDOCRINE: No increased thirst. No abnormal weight change. HEMATOLOGIC/LYMPHATIC: No anemia, easy bleeding, or history of blood clots. On Plavix. ALLERGIC/IMMUNOLOGIC: No hives or skin allergy. No latex allergy. PHYSICAL EXAM: GENERAL: The patient is awake, alert, and fully oriented, in no acute distress. HEAD: Normal with no signs of trauma. ENT: Pupils equal, round and reactive to light, extraocular movements intact, sclera anicteric, conjunctiva clear. Neck supple. LUNGS: Clear to auscultation bilaterally. Normal excursion. No respiratory distress or use of accessory muscles. CV: RRR, S1/S2, no MRG. Cap refill < 2 sec. Pain not reproducible with palpation. ABDOMEN: Soft, non-distended, non-tender. EXTREMITIES: Hematoma to bilateral knees, R>L, normal range of motion. No calf tenderness. NEUROLOGICAL: Normal speech, normal gait. CN II-XII grossly intact. PSYCH: Normal mood, normal affect. SKIN: Warm, dry, normal turgor, no rashes or lesions noted. Past History - Past Medical History Allergies/Adverse Reactions: Allergies Allergy/AdvReac Type Severity Reaction Status Date / Time acetaminophen Allergy Verified 12/02/16 08:23 [From Tylenol-Codeine] aspirin Allergy Verified 12/02/16 08:23 codeine phosphate Allergy Verified 12/02/16 08:23 [From Tylenol-Codeine] Home Medications: Ambulatory Orders Allopurinol [Zyloprim -] 100 mg PO DAILY 07/13/16 Aspirin [Ecotrin] 81 mg PO DAILY 07/13/16 Atorvastatin Calcium 40 mg PO HS 07/13/16 Cholecalciferol (Vitamin D3) [Vitamin D3 -] 1,000 unit PO DAILY 07/13/16 Clopidogrel Bisulfate [Clopidogrel] 75 mg PO DAILY 07/13/16 Colchicine [Colcrys] 0.6 mg PO DAILY 07/13/16 Cyanocobalamin (Vitamin B-12) [Vitamin B-12] 5,000 mcg SL DAILY 07/13/16 Divalproex Sodium [Depakote ER] 500 mg PO DAILY 07/13/16 Famotidine 20 mg PO DAILY 07/13/16 Metoprolol Tartrate 25 mg PO DAILY 07/13/16 Multivit-Min/FA/Lycopen/Lutein [Centrum Silver Tablet] 1 each PO DAILY 07/13/16 [employer]-3/Dha/Epa/Fish Oil [Fish Oil 1,000 mg Softgel] 1,000 mg PO DAILY 07/13/16 Amitriptyline HCl [Elavil -] 50 mg PO HS tablet 08/09/16 Amlodipine Besylate [Norvasc -] 5 mg PO DAILY tablet 08/09/16 Buspirone HCl [Buspar -] 5 mg PO BID #60 tablet 08/09/16 Cardiac Disorders: Yes (STENT 2015) HTN: Yes Hypercholesterolemia: Yes Seizures: Yes - Surgical History Cardiac Surgery: Yes (angioplasty) Orthopedic Surgery: Yes (HERNIATED DISC) - Immunization History Immunization Up to Date: Yes - Psycho/Social/Smoking Cessation Hx Anxiety: No Suicidal Ideation: No Smoking History: Never smoked Number of Cigarettes Smoked Daily: 0 Information on smoking cessation initiated: No Hx Alcohol Use: No Drug/Substance Use Hx: No Substance Use Type: None *Physical Exam - Vital Signs Last Vital Signs Temp Pulse Resp BP Pulse Ox 97.5 F L 79 18 153/84 97 12/02/16 08:22 12/02/16 08:22 12/02/16 08:22 12/02/16 08:22 12/02/16 08:22 Heart Score/ECG Review - ECG Intrepretation Comment:: 12/02/16 12:12 NSR at 83 bpm, no ST or T wave changes ED Treatment Course - LABORATORY CBC & Chemistry Diagram: 12/02/16 10:20 12/02/16 10:20 - RADIOLOGY Radiology Studies Ordered: Category Date Time Status CHEST X-RAY PORTABLE* [RAD] Stat Radiology 12/02/16 08:36 Ordered Medical Decision Making - Medical Decision Making 12/02/16 11:16 A/P: 86 year old female s/p mechanical fall with chest pain and SOB, also with hematomas to bilateral knees. 1. EKG and equipment monitor phototypesetting 2. CXR, ribs, knee xrays 3. Cardiac labs 4. Re-assess 12/02/16 12:13 Troponin <0.02 CXR: No acute process Knee xrays: right knee soft tissue swelling; immobilizer placed Patient re-evaluated and still complaining of chest pain. Will request observation for DANISH. Accepted by Dr. Zimmerman. *DC/Admit/Observation/Transfer Diagnosis at time of Disposition: Chest pain Qualifiers: Chest pain type: other chest pain Qualified Code(s): R07.89 - Other chest pain - Discharge Dispostion Admit: Yes
--- NOTE | 2016-12-02 10:27 | EKG ---
Test Reason : Blood Pressure : / mmHG Vent. Rate : 083 BPM Atrial Rate : 083 BPM P-R Int : 168 ms QRS Dur : 096 ms QT Int : 406 ms P-R-T Axes : 046 008 018 degrees QTc Int : 477 ms NORMAL SINUS RHYTHM NORMAL ECG WHEN COMPARED WITH ECG OF 21-NOV-2016 23:20, NO SIGNIFICANT CHANGE WAS FOUND Confirmed by CAROLYN VALADEZ MD ([id number]) on 12/02/2016 10:26:30 AM Referred By: Confirmed By:CAROLYN VALADEZ MD
[2016-12-02 10:45] LABS: INR 1.04 (0.82-1.09); PROTHROMBIN TIME (PATIENT) 11.4 SEC (9.98-11.88)
[2016-12-02 10:49] LABS: MCH 30.6 pg (25.7-33.7); MCHC 33.3 g/dl (32.0-36.0); PLATELET COUNT 189 K/MM3 (134-434); RDW 15.5 % (11.6-15.6); WHITE BLOOD COUNT 5.3 K/mm3 (4.0-10.0)
[2016-12-02 10:50] LABS: BASOPHIL 0.2 % (0-2.0); EOSINOPHIL 1.1 % (0-4.5); MEAN PLT VOLUME 7.8 fl (7.5-11.1); NEUTROPHILS 71.3 % (42.8-82.8)
[2016-12-02 10:54] LABS: ALBUMIN 3.8 g/dl (3.4-5.0); ANION GAP 8 (8-16); BILIRUBIN,TOTAL 0.3 mg/dL (0.2-1.0); CALCIUM 9.1 mg/dL (8.5-10.1); CO2 29 mmol/L (21-32); CREATININE 1.1 mg/dL (0.55-1.02); GLUCOSE,RANDOM 87 mg/dL (74-106); SGOT/AST 22 U/L (15-37); SGPT/ALT 22 U/L (12-78); TOT PROT 7.1 g/dl (6.4-8.2)
[2016-12-02 10:55] LABS: ALK PHOS 90 U/L (45-117)
[2016-12-02 11:37] LABS: TROPONIN I < 0.02 ng/ml (0.00-0.05)
--- NOTE | 2016-12-02 13:21 | CON.CARD ---
Consult Consult Specialty:: Cardiology Referred by:: ER Reason for Consultation:: Chest pain - History of Present Illness Chief Complaint: Fall with trauma, chest pain History of Present Illness: 86 year old woman with a history of HTN, HLD, CAD s/p PCI with TIMO D1 02/2016 with residual moderate OM1 disease and mild residual disease in other vessels, chronic diastolic CHF, HTN heart disease, chronic dizziness and gait instability presents after a fall at home followed by chest pain. Pt. seen and examined in the ER in [place]. Pt. states that she was walking in her house last night when she tripped and fell, landing on her knees and then went down to the ground landing on her chest. She denies any LOC, denies dizziness or lightheadedness prior to the fall. She states that both her knees were very painful after the fall and that she began feeling L sided chest pain. She is unsure if she hit her chest on anything other than the floor. she states the pain in her chest is continuous, sharp, non-radiating, exacerbated by deep inspiration. denies sob, pnd, orthopnea, or LE edema. no palpitations. 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 Cardio/Vascular: Yes: CAD (s/p PCI 02/2016 Kimo Vidal), CHF, HTN, Hyperlipdemia Gastrointestinal: Yes: Constipation, Diverticulosis, GERD Renal/: Yes: Renal Inusuff Psych: Yes: Depression Musculoskeletal: Yes: Osteoarthritis Endocrine: Yes: Osteopenia, Other Additional Medical History: Seizure disorder - Past Surgical History Past Surgical History: Yes: Hernia Repair (spine surgery for disc hernaition Lipoma excized cataracts), Stent - Alcohol/Substance Use Hx Alcohol Use: No History of Substance Use: reports: None - Smoking History Smoking history: Never smoked Aproximately how many cigarettes per day: 0 - Social History ADL: Family Assistance History of Recent Travel: No Home Medications - Allergies Allergies/Adverse Reactions: Allergies Allergy/AdvReac Type Severity Reaction Status Date / Time acetaminophen Allergy Verified 12/02/16 08:23 [From Tylenol-Codeine] aspirin Allergy Verified 12/02/16 08:23 codeine phosphate Allergy Verified 12/02/16 08:23 [From Tylenol-Codeine] - Home Medications Home Medications: Ambulatory Orders Allopurinol [Zyloprim -] 100 mg PO DAILY 07/13/16 Aspirin [Ecotrin] 81 mg PO DAILY 07/13/16 Atorvastatin Calcium 40 mg PO HS 07/13/16 Cholecalciferol (Vitamin D3) [Vitamin D3 -] 1,000 unit PO DAILY 07/13/16 Clopidogrel Bisulfate [Clopidogrel] 75 mg PO DAILY 07/13/16 Colchicine [Colcrys] 0.6 mg PO DAILY 07/13/16 Cyanocobalamin (Vitamin B-12) [Vitamin B-12] 5,000 mcg SL DAILY 07/13/16 Divalproex Sodium [Depakote ER] 500 mg PO DAILY 07/13/16 Famotidine 20 mg PO DAILY 07/13/16 Metoprolol Tartrate 25 mg PO DAILY 07/13/16 Multivit-Min/FA/Lycopen/Lutein [Centrum Silver Tablet] 1 each PO DAILY 07/13/16 [place]-3/Dha/Epa/Fish Oil [Fish Oil 1,000 mg Softgel] 1,000 mg PO DAILY 07/13/16 Amitriptyline HCl [Elavil -] 50 mg PO HS tablet 08/09/16 Amlodipine Besylate [Norvasc -] 5 mg PO DAILY tablet 08/09/16 Buspirone HCl [Buspar -] 5 mg PO BID #60 tablet 08/09/16 Family Disease History - Family Disease History Family Disease History: Diabetes: Father, Brother, Sister, Heart Disease: Mother , Other: Son (HTN), Daughter (HTN) Review of Systems - Review of Systems Constitutional: denies: No Symptoms, Chills, Diaphoresis, Fever, Lethargy, Loss of Appetite, Malaise, Night Sweats, Unintentional Wgt. Loss, Weakness, Other Eyes: denies: No Symptoms, Blind Spots, Blurred Vision, Double Vision, Eye Pain , Floaters, Photophobia, Recent Change in Vision, Other HENT: denies: No Symptoms, Difficult Swallowing, Ear Discharge, Ear Pain, Epistaxis, Gingival Bleeding, Hearing Loss, Mouth Swelling, Nasal Congestion, Ocular Prosthesis, Throat Pain, Toothache, Ringing in Ears, Other Neck: denies: No Symptoms, Decreased ROM, Lumps, Pain on Movement, Stiffness, Swollen Glands, Tenderness, Other Cardiovascular: reports: Chest Pain. denies: No Symptoms, Edema, Palpitations, Shortness of Breath, Other Respiratory: denies: No Symptoms, Cough, Exercise Intolerance, Hemoptysis, Orthopnea, PND, Snoring, SOB, SOB on Exertion, Wheezing, Other Gastrointestinal: denies: No Symptoms, Abdominal Pain, Bloating, Constipation, Diarrhea, Dysphagia, Indigestion, Melena, Nausea, Rectal Bleeding, Vomiting, Vomiting Blood, Other Genitourinary: denies: No Symptoms, Burning, Discharge, Dysuria, Flank Pain, Frequency, Hematuria, Incontinence, Lesions, Menses, Pain, Testicular Mass, Testicular Pain, Testicular Swelling, Urgency, Vaginal Bleeding, Other Breasts: denies: No Symptoms Reported, See HPI, Breast Implants, Discharge from Nipple, Lumps, Pain, Skin Changes, Other Musculoskeletal: reports: Extremity Pain, Joint Pain, Joint Swelling, Other (b/ l knee pain, bruising) Integumentary: denies: No Symptoms, Blister, Bruising, Change in Color, Eczema, Erythema, Incision, Lesions, Lump, Pallor, Pruritis, Rash, Wound, Other Neurological: denies: No Symptoms, Change in LOC, Change in Speech, Confusion, Dizziness, Headache, Incoordination, Numbness, Parasthesia, Pre-Existing Deficit , Seizure, Syncope, Tremors, Unsteady Gait, Weakness, Other Endocrine: denies: No Symptoms, Excessive Sweating, Flushing, Increased Hunger, Increased Thirst, Intolerance to Cold, Intolerance to Heat, Unexplained Weight Gain, Unexplained Weight Loss, Other Hematology/Lymphatic: denies: No Symptoms, Easily Bruised, Excessive Bleeding, Swollen Glands, Other Psychiatric: denies: No Symptoms, Altered Sleep Pattern, Anxiety, Depression, Hallucinations, Panic, Paranoia, Suicidal, Other - Risk Factors Known Risk Factors: Yes: Age, Hypercholesterolemia, Hypertension Vital Signs: Vital Signs Temperature 97.9 F 12/02/16 12:16 Pulse Rate 76 12/02/16 12:16 Respiratory Rate 16 12/02/16 12:16 Blood Pressure 151/89 12/02/16 12:16 O2 Sat by Pulse Oximetry (%) 95 12/02/16 12:16 Constitutional: Yes: Well Nourished, No Distress, Calm Eyes: Yes: WNL, Conjunctiva Clear, EOM Intact, PERRL HENT: Yes: WNL, Atraumatic, Normocephalic Neck: Yes: WNL Respiratory: Yes: WNL, Regular, CTA Bilaterally. No: Rales, Rhonchi, Wheezes Gastrointestinal: Yes: WNL, Normal Bowel Sounds, Soft. No: Distention, Tenderness Renal/: Yes: WNL Cardiovascular: Yes: Regular Rate and Rhythm. No: Bradycardia, Tachycardia, Pulse Irregular, Gallop, Rub, Varicosities JVD: No Carotid Bruit: No PMI: Non-Displaced Heart Sounds: Yes: S1, S2. No: Split S2, S3, S4, Clicks, Gallop, Rub, Bruit Murmur: No: Systolic Murmur, Diastolic Murmur Musculoskeletal: Yes: Joint Stiffness, Joint Swelling, Other (tenderness to palpation over left chest wall) Extremities: Yes: Other (bruising and ecchymosis b/l knees) Edema: No Peripheral Pulses WNL: Yes Peripheral Pulses: 2+ Left Doralis Pedis, 2+ Right Dorsalis Pedis Integumentary: Yes: WNL Neurological: Yes: Alert, Oriented Psychiatric: Yes: Alert, Oriented - Other Data Labs, Other Data: INR, PTT INR 1.04 (0.82-1.09) 12/02/16 10:20 ekg-nsr 83bpm, nonspecific St abnl Prior Cardiac Procedures: PTCA with Stent Imaging - Results Chest X-ray: Report Reviewed, Image Reviewed EKG: Report Reviewed, Image Reviewed Other: Report Reviewed, Image Reviewed Assessment/Plan 86 year old woman with a history of HTN, HLD, CAD s/p PCI with TIMO D1 02/2016 with residual moderate OM1 disease and mild residual disease in other vessels, chronic diastolic CHF, HTN heart disease, chronic dizziness and gait instability presents after a fall at home followed by chest pain. Chest pain-after mechanical fall with possible chest trauma, h/o CAD with stent as above and residual non-obstructive CAD -unlikely ACS, more likely MSK -review chest Xray or obtain dedicated rib imaging -no ischemia on ekg -cardiac enzymes wnl x 1 -can admit for observation and serial cardiac enzymes -cont home CAD meds including ASA and Plavix, pt has tolerated ASA for several months despite reported allergy -cont metoprolol and lipitor Chronic diastolic CHF -currently euvolemic -does not require diuresis Fall-mechanical with chronic gait instability -significant b/l Knee trauma -PT evaluation -avoid dehydration HTN-slightly above goal, likely exacerbated by pain -resume home medications and observe HLD -cont statin
--- NOTE | 2016-12-02 18:42 | HP ---
Admitting History and Physical - Primary Care Physician PCP: Pb Zimmerman - Admission Chief Complaint: Lt sided CP History of Present Illness: This is an 86 year old female with a history of CAD s/p stent 1 yr ago, HTN w/ CRI, dyslipidemia, (questionable)seizure disorder, anxiety dz; and gait impaired (2nd adv OA of knees) who presents to the ED after a fall last night. She reports that she got out of bed to go to the bathroom last night when she fell forward on to both knees. She denies head trauma and neck pain. She says that she may have rushed and lost her balance. She did not lose consciousness. no incont of urine/stool noted; she reports that she developed chest pain right after the fall which has been present since then. She has some associated shortness of breath which carried into today (AM) that prompted her to come to the ED. 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 Cardiovascular: Yes: CAD (s/p PCI 02/2016 [facility]), CHF, HTN, Hyperlipdemia Gastrointestinal: Yes: Constipation, Diverticulosis, GERD Renal/: Yes: Renal Inusuff Heme/Onc: Yes: Anemia Psych: Yes: Depression Musculoskeletal: Yes: Osteoarthritis Endocrine: Yes: Osteopenia, Other - Past Surgical History Past Surgical History: Yes: Hernia Repair (spine surgery for disc hernaition Lipoma excized cataracts), Laminectomy, Stent Additional Past Surgical History: abd wall hernia; s/p SOLANGE; cataract OU - Smoking History Smoking history: Never smoked Aproximately how many cigarettes per day: 0 - Alcohol/Substance Use Hx Alcohol Use: No History of Substance Use: reports: None - Social History Usual Living Arrangement: Yes: With Child ADL: Family Assistance History of Recent Travel: No Home Medications - Allergies Allergies/Adverse Reactions: Allergies Allergy/AdvReac Type Severity Reaction Status Date / Time acetaminophen Allergy Verified 12/02/16 08:23 [From Tylenol-Codeine] aspirin Allergy Verified 12/02/16 08:23 codeine phosphate Allergy Verified 12/02/16 08:23 [From Tylenol-Codeine] - Home Medications Home Medications: Ambulatory Orders RX: Allopurinol [Zyloprim -] 100 mg PO DAILY 07/13/16 RX: Aspirin [Ecotrin] 81 mg PO DAILY 07/13/16 RX: Atorvastatin Calcium 40 mg PO HS 07/13/16 RX: Cholecalciferol (Vitamin D3) [Vitamin D3 -] 1,000 unit PO DAILY 07/13/16 RX: Clopidogrel Bisulfate [Clopidogrel] 75 mg PO DAILY 07/13/16 RX: Colchicine [Colcrys] 0.6 mg PO DAILY 07/13/16 RX: Cyanocobalamin (Vitamin B-12) [Vitamin B-12] 5,000 mcg SL DAILY 07/13/16 RX: Divalproex Sodium [Depakote ER] 500 mg PO DAILY 07/13/16 RX: Famotidine 20 mg PO DAILY 07/13/16 RX: Metoprolol Tartrate 25 mg PO DAILY 07/13/16 RX: Multivit-Min/FA/Lycopen/Lutein [Centrum Silver Tablet] 1 each PO DAILY 07/13 RX: [place]-3/Dha/Epa/Fish Oil [Fish Oil 1,000 mg Softgel] 1,000 mg PO DAILY 07/13 RX: Amitriptyline HCl [Elavil -] 50 mg PO HS tablet 08/09/16 RX: Amlodipine Besylate [Norvasc -] 5 mg PO DAILY tablet 08/09/16 RX: Buspirone HCl [Buspar -] 5 mg PO BID #60 tablet 08/09/16 Family Disease History - Family Disease History Family Disease History: Diabetes: Father, Brother, Sister, Heart Disease: Mother , Other: Son (HTN), Daughter (HTN) Review of Systems - Review of Systems Constitutional: reports: No Symptoms Eyes: reports: No Symptoms HENT: reports: No Symptoms Neck: reports: No Symptoms Cardiovascular: reports: Chest Pain (Lt sided worse when breathing in) Respiratory: reports: No Symptoms Gastrointestinal: reports: No Symptoms Genitourinary: reports: No Symptoms Breasts: reports: No Symptoms Reported Musculoskeletal: reports: Decreased ROM, Extremity Pain (LE's), Joint Swelling Integumentary: reports: Bruising Neurological: reports: Unsteady Gait Endocrine: reports: No Symptoms Hematology/Lymphatic: reports: No Symptoms Psychiatric: reports: Anxiety Physical Examination Vital Signs: Vital Signs Temperature 97.8 F 12/02/16 16:36 Pulse Rate 82 12/02/16 16:36 Respiratory Rate 22 12/02/16 16:36 Blood Pressure 155/80 05/15/17 16:36 O2 Sat by Pulse Oximetry (%) 94 L 12/02/16 16:47 Findings/Remarks: skin--bilat ecchymosis on both knees R>L; Lt elbow; no open lesions head--NC eyes--midline; EOMI neck--supple; no brandy tenderness heart--RR chest--some Lt parasternal reproducible tenderness but no overt swelling or redness breasts--no masses appreciated abd--obese, BS+, Nt, ND; old midline lower abd surg scar back--old central lower lumbar surg scar ext--1+ bilat edema of LE's; Rt knee effusion; limited ROM both knees but painless; DP palpable bilat; degen changes widespread neuro--alert; anxious; speech is pressured; but seems coherent and thoughts are organized; able to recall events leading to this admission; good eye contact; follows commands; no apparent motor/sens deficits no tremors or gross rigidity appreciated. Labs: CBCD WBC 5.3 K/mm3 (4.0-10.0) 12/02/16 10:20 RBC 4.13 M/mm3 (3.60-5.2) 12/02/16 10:20 Hgb 12.6 GM/dL (10.7-15.3) 12/02/16 10:20 Hct 38.0 % (32.4-45.2) 12/02/16 10:20 MCV 92.0 fl (80-96) 12/02/16 10:20 MCHC 33.3 g/dl (32.0-36.0) 12/02/16 10:20 RDW 15.5 % (11.6-15.6) 12/02/16 10:20 Plt Count 189 K/MM3 (134-434) 12/02/16 10:20 MPV 7.8 fl (7.5-11.1) 12/02/16 10:20 CMP Sodium 140 mmol/L (136-145) 12/02/16 10:20 Potassium 4.3 mmol/L (3.5-5.1) D 12/02/16 10:20 Chloride 103 mmol/L (98-107) 12/02/16 10:20 Carbon Dioxide 29 mmol/L (21-32) 12/02/16 10:20 Anion Gap 8 (8-16) 12/02/16 10:20 BUN 32 mg/dL (7-18) H 12/02/16 10:20 Creatinine 1.1 mg/dL (0.55-1.02) H 12/02/16 10:20 Creat Clearance w eGFR 47.09 (>60) 12/02/16 10:20 Random Glucose 87 mg/dL (74-106) 12/02/16 10:20 Calcium 9.1 mg/dL (8.5-10.1) 12/02/16 10:20 Total Bilirubin 0.3 mg/dL (0.2-1.0) D 12/02/16 10:20 AST 22 U/L (15-37) 12/02/16 10:20 ALT 22 U/L (12-78) 12/02/16 10:20 Alkaline Phosphatase 90 U/L (45-117) 12/02/16 10:20 Total Protein 7.1 g/dl (6.4-8.2) 12/02/16 10:20 Albumin 3.8 g/dl (3.4-5.0) 12/02/16 10:20 CARDIAC ENZYMES Creatine Kinase 76 IU/L (26-192) 12/02/16 10:20 Troponin I < 0.02 ng/ml (0.00-0.05) 12/02/16 10:20 Imaging - Results Chest X-ray: Report Reviewed X-ray: Report Reviewed EKG: Report Reviewed Problem List - Problems (1) Chest pain Assessment/Plan: In the aftermath of the described falling incident; she does not clearly recall if she struck her chest wall when she fell. May be trauma 2nd soft tissue contusion; doubt cardiac but copuld also be 2nd GERD induced by anxiety following the incident. PLAN will check TNI; add H2 Prashant; Cardio note read Code(s): R07.9 - CHEST PAIN, UNSPECIFIED Qualifiers: Chest pain type: other chest pain Qualified Code(s): R07.89 - Other chest pain; R07.8 - Other chest pain (2) Arteriosclerotic heart disease (ASHD) Assessment/Plan: was stented in 2016; on Plavix; will cont. PLAN: cont cardiac meds; check troponins Code(s): I25.10 - ATHSCL HEART DISEASE OF [place] CORONARY ARTERY W/O ANG PCTRS (3) Hyperlipidemia Assessment/Plan: cont statin Code(s): E78.5 - HYPERLIPIDEMIA, UNSPECIFIED Qualifiers: Hyperlipidemia type: unspecified Qualified Code(s): E78.5 - Hyperlipidemia, unspecified (4) Hypertension with renal disease Assessment/Plan: cont CCB; and avoid MISSY/ARB Code(s): I12.9 - HYPERTENSIVE CHRONIC KIDNEY DISEASE W STG 1-4/UNSP CHR KDNY (5) History of seizure disorder Assessment/Plan: questionable; due to muliple falls which may have suggested a possible seizure episode for which she had been placed on Depakote by previous PCP Code(s): Z86.69 - PERSONAL HISTORY OF DIS OF THE NERVOUS SYS AND SENSE ORGANS (6) Hyperuricemia Assessment/Plan: check levels of urates Code(s): E79.0 - HYPERURICEMIA W/O SIGNS OF INFLAM ARTHRIT AND TOPHACEOUS DIS (7) Osteoarthritis involving multiple joints on both sides of body Assessment/Plan: more pronounced on both knees which have increased her risk of falls; as a result of unstable gait; she would need a TKR but not a candidate at this time Code(s): M15.9 - POLYOSTEOARTHRITIS, UNSPECIFIED (8) Anxiety and depression Assessment/Plan: chronic; use of TCA has been the most effective Tx; will cont Code(s): F41.9 - ANXIETY DISORDER, UNSPECIFIED F32.9 - MAJOR DEPRESSIVE DISORDER, SINGLE EPISODE, UNSPECIFIED (9) Contusion of knee with skin surface intact Assessment/Plan: Bilat but Rt > Lt; Xrays without fx; will get PT eval for gait & stability Code(s): S80.00XA - CONTUSION OF UNSPECIFIED KNEE, INITIAL ENCOUNTER (10) Antiplatelet or antithrombotic long-term use Assessment/Plan: will need to cont Plavix in that benefit overrides risk (of stent occlusion); and will add low dose SC hep as she is at mod risk of PE Code(s): Z79.02 - RETIREMENT (CURRENT) USE OF ANTITHROMBOTICS/ANTIPLATELETS Assessment/Plan 86 YO F with multiple co-morbidities who developed CP following a mechanical fall; will observe ~~~~~~~~~~~~~~~~~~ Dr Elsie 1
[2016-12-02] MEDS ORDERED: PANTOPRAZOLE SODIUM 100 ML IVPB ONE (18:45)
[2016-12-02 20:04] LABS: TROPONIN I < 0.02 ng/ml (0.00-0.05)
[2016-12-02] MEDS: traMADol HCL 50 MG TABLET PO PRN (21:21)
[2016-12-02] MEDS: ATORVASTATIN CA 40 MG TABLET (FP) PO SCH (21:21)
[2016-12-02] MEDS: HEPARIN NA (PORCINE) 5,000 UNITS/ML 1ML VIAL SQ SCH (21:23)
[2016-12-02] MEDS ORDERED: AMITRIPTYLINE HCL 50 MG TABLET PO SCH (22:00)
[2016-12-02] MEDS: busPIRone HCL 10 MG TABLET (FP) PO SCH (22:31)
[2016-12-02] MEDS: AMITRIPTYLINE HCL 25 MG TABLET (FP) PO SCH (22:31)
[2016-12-02] MEDS: RANITIDINE HCL 150 MG TABLET (FP) PO SCH (22:31)
[2016-12-03] MEDS: busPIRone HCL 10 MG TABLET (FP) PO SCH ×3 (05:52→21:16)
[2016-12-03 07:31] LABS: CALCIUM 8.6 mg/dL (8.5-10.1); COCKROFT - GAULT 51.3995; CREATININE 0.9 mg/dL (0.55-1.02); MAGNESIUM 2.3 mg/dL (1.8-2.4)
[2016-12-03 07:40] LABS: THYROID STIMULATING HORMONE 3.07 uIU/ml (0.358-3.74)
--- NOTE | 2016-12-03 09:38 | PN ---
Progress Note, Physician Chief Complaint: seen and examined X rays, no rib fracture History of Present Illness: TELE: NSR, no pauses or sustained arrhythmias. - Current Medication List Current Medications: Active Medications Amitriptyline HCl (Elavil -) 50 mg PO HS [facility] Last Admin: 12/02/16 22:31 Dose: 50 mg Amlodipine Besylate (Norvasc -) 5 mg PO DAILY [facility] Atorvastatin Calcium (Lipitor -) 40 mg PO HS [facility] Last Admin: 12/02/16 21:21 Dose: 40 mg Buspirone HCl (Buspar -) 10 mg PO TID [facility] Last Admin: 12/03/16 05:52 Dose: 10 mg Clopidogrel Bisulfate (Plavix -) 75 mg PO DAILY [facility] Divalproex Sodium (Depakote *Er* -) 500 mg PO DAILY [facility] Heparin Sodium (Porcine) (Heparin -) 5,000 unit SQ BID [facility] Last Admin: 12/02/16 21:23 Dose: 5,000 unit Metoprolol Succinate (Toprol Xl -) 25 mg PO DAILY [facility] Ranitidine HCl (Zantac -) 150 mg PO BID [facility] Last Admin: 12/02/16 22:31 Dose: 150 mg Tramadol HCl (Ultram -) 50 mg PO Q8H PRN PRN Reason: PAIN Last Admin: 12/02/16 21:21 Dose: 50 mg - Objective Vital Signs: Vital Signs Temperature 98.7 F 12/03/16 06:00 Pulse Rate 84 12/03/16 06:00 Respiratory Rate 20 12/03/16 06:00 Blood Pressure 134/76 12/03/16 06:00 O2 Sat by Pulse Oximetry (%) 94 L 12/02/16 21:00 Constitutional: Yes: No Distress Eyes: Yes: Conjunctiva Clear Cardiovascular: Yes: Regular Rate and Rhythm Respiratory: Yes: CTA Bilaterally Gastrointestinal: Yes: Soft Musculoskeletal: Yes: Other (right knee ecchymosis) Edema: No Neurological: Yes: Alert, Oriented ...Motor Strength: WNL Labs: CBC, BMP 12/03/16 05:35 INR, PTT INR 1.04 (0.82-1.09) 12/02/16 10:20 - ....Imaging EKG: Image Reviewed Assessment/Plan Assessment/Plan 86 year old woman with a history of HTN, HLD, CAD s/p PCI with TIMO D1 02/2016 with residual moderate OM1 disease and mild residual disease in other vessels, chronic diastolic CHF, HTN heart disease, chronic dizziness and gait instability presents after a fall at home followed by chest pain. Chest pain-after mechanical fall with possible chest trauma, h/o CAD with stent as above and residual non-obstructive CAD -Cardiac enzymes negative; x-rays negative for fracture -no ischemia on ekg -cont home CAD meds including ASA and Plavix, pt has tolerated ASA for several months despite reported allergy -cont metoprolol and lipitor Chronic diastolic CHF -currently euvolemic Fall-mechanical with chronic gait instability: no arrhythmias noted on telemetry -significant b/l Knee trauma -PT evaluation -avoid dehydration
[2016-12-03] MEDS ORDERED: PT OWN MED DRAWER 7, Y5N ONE ×4 (10:47→21:11)
[2016-12-03] MEDS: HEPARIN NA (PORCINE) 5,000 UNITS/ML 1ML VIAL SQ SCH ×2 (10:48→21:22)
[2016-12-03] MEDS: DIVALPROEX NA *ER* EXTEND REL 500 MG TABLET.SA (FP) PO SCH (10:48)
[2016-12-03] MEDS: amLODIPine BESYLATE 5 MG TABLET (FP) PO SCH (10:48)
[2016-12-03] MEDS: METOPROLOL SUCCINATE 25 MG TAB.SR.24H (FP) PO SCH (10:48)
[2016-12-03] MEDS: CLOPIDOGREL BISULFATE 75 MG TABLET (FP) PO SCH (10:48)
[2016-12-03] MEDS: RANITIDINE HCL 150 MG TABLET (FP) PO SCH ×2 (10:48→21:16)
--- NOTE | 2016-12-03 16:57 | PN ---
Progress Note (short form) - Note Progress Note: Current Medications Amitriptyline HCl (Elavil -) 50 mg PO HS [facility] Last Admin: 12/02/16 22:31 Dose: 50 mg Amlodipine Besylate (Norvasc -) 5 mg PO DAILY [facility] Last Admin: 12/03/16 10:48 Dose: 5 mg Atorvastatin Calcium (Lipitor -) 40 mg PO HS [facility] Last Admin: 12/02/16 21:21 Dose: 40 mg Buspirone HCl (Buspar -) 10 mg PO TID [facility] Last Admin: 12/03/16 15:12 Dose: 10 mg Clopidogrel Bisulfate (Plavix -) 75 mg PO DAILY [facility] Last Admin: 12/03/16 10:48 Dose: 75 mg Divalproex Sodium (Depakote *Er* -) 500 mg PO DAILY [facility] Last Admin: 12/03/16 10:48 Dose: 500 mg Heparin Sodium (Porcine) (Heparin -) 5,000 unit SQ BID [facility] Last Admin: 12/03/16 10:48 Dose: 5,000 unit Metoprolol Succinate (Toprol Xl -) 25 mg PO DAILY [facility] Last Admin: 12/03/16 10:48 Dose: 25 mg Ranitidine HCl (Zantac -) 150 mg PO BID [facility] Last Admin: 12/03/16 10:48 Dose: 150 mg Tramadol HCl (Ultram -) 50 mg PO Q8H PRN PRN Reason: PAIN Last Admin: 12/02/16 21:21 Dose: 50 mg Laboratory Results - last 24 hr 12/02/16 12/03/16 12/03/16 18:50 05:35 05:35 Sodium 143 Potassium 3.5 Chloride 106 Carbon Dioxide 27 Anion Gap 10 BUN 27 H Creatinine 0.9 Random Glucose 90 Uric Acid 5.0 D Calcium 8.6 Magnesium 2.3 Creatine Kinase 89 Troponin I < 0.02 TSH 3.07 D Valproic Acid 12.359 L Vital Signs Temperature 99.1 F 12/03/16 15:26 Pulse Rate 92 H 12/03/16 15:26 Respiratory Rate 20 12/03/16 15:26 Blood Pressure 115/76 12/03/16 15:26 O2 Sat by Pulse Oximetry (%) 96 12/03/16 10:00 CC: gen'l pains chest wall & knees ``````````````````````````````` skin--scattered areas of ecchymosis (knees; Lt elbow; chest wall) heart--RR lungs--clear abd--soft ext--effusion RT knee neuro--alert; verbal; very expressive; anxious; moves all Extrems and is cogn intact ````````````````````````````````````` Summ > chest wall pain--likely 2nd contusion as evidenced by ecchymotic area on chest ; Xrays no Fx (see Cardio note) > ASHD--stable; cont anti_plt agents (see Cardio note) > HTN--BP in range > Gait instability--made worse by multiple contusions (knees; arms, chest), but able to walk 30ft as described by Pt staff; will re-eval for any progress. > anxiety dz--chronic; on TCA, and Buspar. Would avoid Benzo due to gen't instability and being fall prone > azotemia--w/ CKD; improved. ~~~~~~~~~~~~~~~~~~~~~ Dr Sterling Problem List - Problems (1) Chest pain Code(s): R07.9 - CHEST PAIN, UNSPECIFIED Qualifiers: Chest pain type: other chest pain Qualified Code(s): R07.89 - Other chest pain; R07.8 - Other chest pain (2) Arteriosclerotic heart disease (ASHD) Code(s): I25.10 - ATHSCL HEART DISEASE OF [place] CORONARY ARTERY W/O ANG PCTRS (3) Hyperlipidemia Code(s): E78.5 - HYPERLIPIDEMIA, UNSPECIFIED Qualifiers: Hyperlipidemia type: unspecified Qualified Code(s): E78.5 - Hyperlipidemia, unspecified (4) Hypertension with renal disease Code(s): I12.9 - HYPERTENSIVE CHRONIC KIDNEY DISEASE W STG 1-4/UNSP CHR KDNY (5) History of seizure disorder Code(s): Z86.69 - PERSONAL HISTORY OF DIS OF THE NERVOUS SYS AND SENSE ORGANS (6) Hyperuricemia Code(s): E79.0 - HYPERURICEMIA W/O SIGNS OF INFLAM ARTHRIT AND TOPHACEOUS DIS (7) Osteoarthritis involving multiple joints on both sides of body Code(s): M15.9 - POLYOSTEOARTHRITIS, UNSPECIFIED (8) Anxiety and depression Code(s): F41.9 - ANXIETY DISORDER, UNSPECIFIED F32.9 - MAJOR DEPRESSIVE DISORDER, SINGLE EPISODE, UNSPECIFIED (9) Contusion of knee with skin surface intact Code(s): S80.00XA - CONTUSION OF UNSPECIFIED KNEE, INITIAL ENCOUNTER (10) Antiplatelet or antithrombotic long-term use Code(s): Z79.02 - FPC (CURRENT) USE OF ANTITHROMBOTICS/ANTIPLATELETS
[2016-12-03] MEDS: traMADol HCL 50 MG TABLET PO PRN (21:16)
[2016-12-03] MEDS: ATORVASTATIN CA 40 MG TABLET (FP) PO SCH (21:16)
[2016-12-03] MEDS: AMITRIPTYLINE HCL 25 MG TABLET (FP) PO SCH (21:16)
[2016-12-04] MEDS ORDERED: PT OWN MED DRAWER 7, Y5N ONE ×4 (06:19→23:50)
[2016-12-04] MEDS: busPIRone HCL 10 MG TABLET (FP) PO SCH ×3 (06:20→23:53)
--- NOTE | 2016-12-04 09:21 | PN ---
Progress Note, Physician Chief Complaint: sitting in chair, no distress TELE: reviewed. NSR, no arrhythmias. - Current Medication List Current Medications: Active Medications Amitriptyline HCl (Elavil -) 50 mg PO HS [facility] Last Admin: 12/03/16 21:16 Dose: 50 mg Amlodipine Besylate (Norvasc -) 5 mg PO DAILY [facility] Last Admin: 12/03/16 10:48 Dose: 5 mg Atorvastatin Calcium (Lipitor -) 40 mg PO HS [facility] Last Admin: 12/03/16 21:16 Dose: 40 mg Buspirone HCl (Buspar -) 10 mg PO TID [facility] Last Admin: 12/04/16 06:20 Dose: 10 mg Clopidogrel Bisulfate (Plavix -) 75 mg PO DAILY [facility] Last Admin: 12/03/16 10:48 Dose: 75 mg Divalproex Sodium (Depakote *Er* -) 500 mg PO DAILY [facility] Last Admin: 12/03/16 10:48 Dose: 500 mg Heparin Sodium (Porcine) (Heparin -) 5,000 unit SQ BID [facility] Last Admin: 12/03/16 21:22 Dose: 5,000 unit Metoprolol Succinate (Toprol Xl -) 25 mg PO DAILY [facility] Last Admin: 12/03/16 10:48 Dose: 25 mg Ranitidine HCl (Zantac -) 150 mg PO BID [facility] Last Admin: 12/03/16 21:16 Dose: 150 mg Tramadol HCl (Ultram -) 50 mg PO Q8H PRN PRN Reason: PAIN Last Admin: 12/03/16 21:16 Dose: 50 mg - Objective Vital Signs: Vital Signs Temperature 98.4 F 12/04/16 06:00 Pulse Rate 80 12/04/16 06:00 Respiratory Rate 18 12/04/16 06:00 Blood Pressure 151/79 12/04/16 06:00 O2 Sat by Pulse Oximetry (%) 80 L 12/04/16 06:00 Constitutional: Yes: Calm Eyes: Yes: Conjunctiva Clear Cardiovascular: Yes: Regular Rate and Rhythm Respiratory: Yes: CTA Bilaterally Gastrointestinal: Yes: Soft Musculoskeletal: Yes: Other (contusion over left breast.) Edema: No Neurological: Yes: Alert, Oriented ...Motor Strength: WNL Labs: CBC, BMP 12/03/16 05:35 INR, PTT INR 1.04 (0.82-1.09) 12/02/16 10:20 - ....Imaging EKG: Image Reviewed Assessment/Plan 86 year old woman with a history of HTN, HLD, CAD s/p PCI with TIMO D1 02/2016 with residual moderate OM1 disease and mild residual disease in other vessels, chronic diastolic CHF, HTN heart disease, chronic dizziness and gait instability presents after a fall at home followed by chest pain. Chest pain-after mechanical fall with possible chest trauma, h/o CAD with stent as above and residual non-obstructive CAD -Cardiac enzymes negative; x-rays negative for fracture -no ischemia on ekg -cont home CAD meds including ASA and Plavix, pt has tolerated ASA for several months despite reported allergy -cont metoprolol and lipitor Chronic diastolic CHF -currently euvolemic Fall-mechanical with chronic gait instability: no arrhythmias noted on telemetry -significant b/l Knee trauma -?SNF placement
[2016-12-04] MEDS: amLODIPine BESYLATE 5 MG TABLET (FP) PO SCH (09:22)
[2016-12-04] MEDS: HEPARIN NA (PORCINE) 5,000 UNITS/ML 1ML VIAL SQ SCH ×2 (09:22→23:53)
[2016-12-04] MEDS: CLOPIDOGREL BISULFATE 75 MG TABLET (FP) PO SCH (09:22)
[2016-12-04] MEDS: DIVALPROEX NA *ER* EXTEND REL 500 MG TABLET.SA (FP) PO SCH (09:22)
[2016-12-04] MEDS: METOPROLOL SUCCINATE 25 MG TAB.SR.24H (FP) PO SCH (09:22)
[2016-12-04] MEDS: RANITIDINE HCL 150 MG TABLET (FP) PO SCH ×2 (09:22→23:53)
[2016-12-04] MEDS: traMADol HCL 50 MG TABLET PO PRN (11:10)
--- NOTE | 2016-12-04 16:08 | DS ---
Physical Examination Vital Signs: Vital Signs Temperature 97.4 F L 12/04/16 14:00 Pulse Rate 83 12/04/16 14:00 Respiratory Rate 18 12/04/16 14:00 Blood Pressure 123/83 12/04/16 14:00 O2 Sat by Pulse Oximetry (%) 80 L 12/04/16 06:00 Constitutional: Yes: Well Nourished, Anxious Eyes: Yes: Conjunctiva Clear HENT: Yes: Atraumatic Neck: Yes: Supple Cardiovascular: Yes: Regular Rate and Rhythm, Other (chest wall ecchymosis) Respiratory: Yes: Regular Gastrointestinal: Yes: Normal Bowel Sounds, Soft Musculoskeletal: Yes: Joint Swelling (both knees) Edema: Yes Edema: RUE: Trace, LLE: Trace Integumentary: Yes: Bruising Neurological: Yes: Alert, Oriented ...Motor Strength: WNL Labs: CBC, BMP 12/03/16 05:35 Discharge Summary Reason For Visit: CHEST PAIN Current Active Problems Antiplatelet or antithrombotic long-term use--cont ASA & plavix (she is able to tolerate baby ASA) Chest pain atypical 2nd contusion(Acute) Contusion of knee with skin surface intact (Acute)--to undergo PT Hypertension with renal disease anxiety dz depression hx seizure hyperuricemia lipidemia CAD s/p stenting--under cardiology care dr Wyatt OA both knees gait impaired hx falls Hospital Course: admitted c/o chest pain following a fall at home as described; she had a mechanical fall contusing her Lt arm; both knees and chest wall. Though she c/o pain the Xrays did not reveal any obvious Fx. She was seen by Cardiology (dr Wyatt) who did not feel that this was of cardiac origin. The cardiac enzymes were NL; her VS remain stable; the echo showed a good Ej Fx. She was kept on plavix due to the fact that it has not been 1 year since the coronary stent was placed. PhysioTx attempt to ambulate her demonstrated that she was apprehensive and unsteady and uncomfortable (2nd pain) on her feet. Condition: Stable - Instructions Diet, Activity, Other Instructions: low sodium diet physical therapy & occup therapy psych eval check CBC & chemistry weekly Referrals: Pb Zimmerman MD [Primary Care Provider] - [facility]position[facility] - Home Medications Comprehensive Discharge Medication List: Ambulatory Orders Allopurinol [Zyloprim -] 100 mg PO DAILY 07/13/16 Aspirin [Ecotrin] 81 mg PO DAILY 07/13/16 Atorvastatin Calcium 40 mg PO HS 07/13/16 Cholecalciferol (Vitamin D3) [Vitamin D3 -] 1,000 unit PO DAILY 07/13/16 Clopidogrel Bisulfate [Clopidogrel] 75 mg PO DAILY 07/13/16 Colchicine [Colcrys] 0.6 mg PO DAILY 07/13/16 Cyanocobalamin (Vitamin B-12) [Vitamin B-12] 5,000 mcg SL DAILY 07/13/16 Divalproex Sodium [Depakote ER] 500 mg PO DAILY 07/13/16 Famotidine 20 mg PO DAILY 07/13/16 Metoprolol Tartrate 25 mg PO DAILY 07/13/16 Multivit-Min/FA/Lycopen/Lutein [Centrum Silver Tablet] 1 each PO DAILY 07/13/16 [place]-3/Dha/Epa/Fish Oil [Fish Oil 1,000 mg Softgel] 1,000 mg PO DAILY 07/13/16 Amitriptyline HCl [Elavil -] 50 mg PO HS tablet 08/09/16 Amlodipine Besylate [Norvasc -] 5 mg PO DAILY tablet 08/09/16 Tramadol HCl [Ultram -] 50 mg PO Q8H PRN #30 tablet NS MDD 3 12/03/16 Buspirone HCl [Buspar -] 10 mg PO TID tablet 12/04/16
[2016-12-04] MEDS ORDERED: AMITRIPTYLINE HCL 25 MG TABLET (FP) PO SCH (23:45)
[2016-12-04] MEDS ORDERED: traMADol HCL 50 MG TABLET PO PRN (23:45)
[2016-12-04] MEDS ORDERED: ATORVASTATIN CA 40 MG TABLET (FP) PO SCH (23:45)
[2016-12-05] MEDS: busPIRone HCL 10 MG TABLET (FP) PO SCH ×3 (02:39→13:32)
[2016-12-05] MEDS: RANITIDINE HCL 150 MG TABLET (FP) PO SCH ×2 (02:40→09:08)
[2016-12-05] MEDS: AMITRIPTYLINE HCL 25 MG TABLET (FP) PO SCH (02:40)
[2016-12-05] MEDS: HEPARIN NA (PORCINE) 5,000 UNITS/ML 1ML VIAL SQ SCH ×2 (02:40→09:07)
[2016-12-05] MEDS: ATORVASTATIN CA 40 MG TABLET (FP) PO SCH (02:40)
[2016-12-05] MEDS ORDERED: PT OWN MED DRAWER 7, Y5N ONE (08:50)
--- NOTE | 2016-12-05 09:14 | PN ---
Progress Note, Physician Chief Complaint: awake and alert, no distress Echo with normal LV function and mild TELE: NSR, rare VPCs. - Current Medication List Current Medications: Active Medications Amitriptyline HCl (Elavil -) 50 mg PO HS [facility] Last Admin: 12/04/16 23:53 Dose: 50 mg Amlodipine Besylate (Norvasc -) 5 mg PO DAILY [facility] Last Admin: 12/05/16 09:07 Dose: 5 mg Aspirin (Ecotrin -) 81 mg PO DAILY [facility] Last Admin: 12/05/16 09:07 Dose: 81 mg Atorvastatin Calcium (Lipitor -) 40 mg PO HS [facility] Last Admin: 12/04/16 23:53 Dose: 40 mg Buspirone HCl (Buspar -) 10 mg PO TID [facility] Last Admin: 12/05/16 06:25 Dose: 10 mg Clopidogrel Bisulfate (Plavix -) 75 mg PO DAILY [facility] Last Admin: 12/05/16 09:07 Dose: 75 mg Divalproex Sodium (Depakote *Er* -) 500 mg PO DAILY [facility] Heparin Sodium (Porcine) (Heparin -) 5,000 unit SQ BID [facility] Last Admin: 12/05/16 09:07 Dose: 5,000 unit Metoprolol Succinate (Toprol Xl -) 25 mg PO DAILY [facility] Last Admin: 12/05/16 09:07 Dose: 25 mg Ranitidine HCl (Zantac -) 150 mg PO BID [facility] Last Admin: 12/05/16 09:08 Dose: 150 mg Tramadol HCl (Ultram -) 50 mg PO Q8H PRN PRN Reason: PAIN Last Admin: 12/05/16 06:25 Dose: 50 mg - Objective Vital Signs: Vital Signs Temperature 97.9 F 12/05/16 05:24 Pulse Rate 88 12/05/16 05:24 Respiratory Rate 20 12/05/16 05:24 Blood Pressure 133/75 12/05/16 05:24 O2 Sat by Pulse Oximetry (%) 92 L 12/04/16 23:39 Constitutional: Yes: No Distress, Calm Eyes: Yes: Conjunctiva Clear Cardiovascular: Yes: Regular Rate and Rhythm Respiratory: Yes: CTA Bilaterally Gastrointestinal: Yes: Soft Edema: No Neurological: Yes: Alert, Oriented ...Motor Strength: WNL Labs: CBC, BMP 12/03/16 05:35 INR, PTT INR 1.04 (0.82-1.09) 12/02/16 10:20 - ....Imaging EKG: Image Reviewed Assessment/Plan Assessment/Plan 86 year old woman with a history of HTN, HLD, CAD s/p PCI with TIMO D1 02/2016 with residual moderate OM1 disease and mild residual disease in other vessels, chronic diastolic CHF, HTN heart disease, chronic dizziness and gait instability presents after a fall at home followed by chest pain. Chest pain-after mechanical fall with possible chest trauma, h/o CAD with stent as above and residual non-obstructive CAD -Cardiac enzymes negative; x-rays negative for fracture -no ischemia on ekg. Echo with normal LV function and no effusion -cont home CAD meds including ASA and Plavix, pt has tolerated ASA for several months despite reported allergy -cont metoprolol and lipitor Chronic diastolic CHF -currently euvolemic Fall-mechanical with chronic gait instability: no arrhythmias noted on telemetry -significant b/l Knee trauma - awaits SNF placement
[2016-12-05] MEDS ORDERED: DIVALPROEX NA *ER* EXTEND REL 500 MG TABLET.SA (FP) PO SCH (10:00)
[2016-12-05] MEDS ORDERED: amLODIPine BESYLATE 5 MG TABLET (FP) PO SCH (10:00)
[2016-12-05] MEDS ORDERED: METOPROLOL SUCCINATE 25 MG TAB.SR.24H (FP) PO SCH (10:00)
[2016-12-05] MEDS ORDERED: CLOPIDOGREL BISULFATE 75 MG TABLET (FP) PO SCH (10:00)
[2016-12-05] MEDS ORDERED: ASPIRIN COATED 81 MG TABLET.EC PO SCH ×2 (10:00)
[2016-12-05 15:34] VITALS: BP 117/74; PULSE 85; TEMP 98.5
== END 2016-12-05 16:48 ==
LOC: JER 08:08 → JERBED 12:36 → J4W 15:31 → UNDODISOB 12-04 17:00
PROVIDERS: ADMIT Internal Medicine; ATTEND Internal Medicine
PROC: 3E013GC Introduction of Other Therapeutic Substance into Subcutaneous Tissue, Percutaneous Approach (ICD-10-PCS; principal; 2016-12-02)
DX: R07.89 Other chest pain (principal); I25.10 Atherosclerotic heart disease of native coronary artery without angina pectoris; I50.32 Chronic diastolic (congestive) heart failure; I12.9 Hypertensive chronic kidney disease with stage 1 through stage 4 chronic kidney disease, or unspecified chronic kidney disease; Z95.5 Presence of coronary angioplasty implant and graft; E78.5 Hyperlipidemia, unspecified; G40.909 Epilepsy, unspecified, not intractable, without status epilepticus; M10.9 Gout, unspecified; S80.02XA Contusion of left knee, initial encounter; S80.01XA Contusion of right knee, initial encounter; W18.39XA Other fall on same level, initial encounter; Y93.89 Activity, other specified; Y92.003 Bedroom of unspecified non-institutional (private) residence as the place of occurrence of the external cause; Z88.8 Allergy status to other drugs, medicaments and biological substances; K21.9 Gastro-esophageal reflux disease without esophagitis; R26.81 Unsteadiness on feet; Z79.82 Long term (current) use of aspirin; E79.0 Hyperuricemia without signs of inflammatory arthritis and tophaceous disease; M15.9 Polyosteoarthritis, unspecified; F41.9 Anxiety disorder, unspecified; F32.9 Major depressive disorder, single episode, unspecified; Z79.02 Long term (current) use of antithrombotics/antiplatelets
CPT/HCPCS: 36415; 71010-TC; 71101-TC; 73562-TC-LT; 73562-TC-RT; 80048; 80053; 80164; 82550; 83735; 84443; 84484; 84550; 85025; 85610; 93005; 93010; 93306-TC; 97116-GP; 97162-PG; 99285-25; G0378; J1644

== ENCOUNTER 2017-08-08 09:14 | Emergency (ER) | payer BC ==
[2017-08-08 09:37] VITALS: BMI 33.2
--- NOTE | 2017-08-08 09:53 | PDOC ---
Attending Attestation - Resident Resident Name: Madhavi Costa - ED Attending Attestation I have performed the following: I have examined & evaluated the patient, The case was reviewed & discussed with the resident, I agree w/resident's findings & plan, Exceptions are as noted - HPI HPI: 08/08/17 10:13 86y F hx of CAD s/p stent, diastolic chf, hl, presents with gradual onset sob since last night. pt states she has traditiionally felt some sob that lasts a fe wminutes but resolves, but starting since lastnight, has been feeling sob. She endorses mild nonproductive cough, and notes that she did have some cough this morning that was a small streak of blood.. she then blew her nose and noticed epistaxis. she denies any orthopnea, leg swelling, chest pain, n/v, f/c , diaphoresis, back pain, diarrhea, bpr. on exam pt in no acute distrss, lungs clear LE with b/l +1 edema no calf tenderness cardiac exam wnl vitals wnl ddx includes chf, viral syndrome, consider ACS - will obtain cbc, cmp, bnp, trop, ekg, cxr will reassess PMD: Dr. Zimmerman, Dr. Wyatt - Physicial Exam PE: 08/09/17 16:30 see above - Medical Decision Making 08/08/17 11:59 Labs reviewed and are unremarkable Awaiting chest x-ray but pt feelin gimproved anticipate pmd fu w return precautions 08/09/17 16:30 Heart Score/ECG Review - ECG Impressions Comment:: 08/08/17 11:19 Twelve-lead EKG was performed and reviewed by me. There is normal sinus rhythm with a normal rate. Rate of [address]-T wave changes QTc interval 482 No significant changes when compared with EKG dated 12/02/2016
--- NOTE | 2017-08-08 10:32 | PDOC ---
History of Present Illness - General Chief Complaint: Weakness Stated Complaint: WEAKNESS, COUGH, NOSE BLEED Time Seen by Provider: 08/08/17 09:39 - History of Present Illness Initial Comments: Ms Loaiza is an 86yo pleasant F with PMHx of CAD s/p stent in 2016, dCHF, OA of knees/shoulders with impaired mobility who presented with gradual onset dyspnea since last night. She denies chest pain or tightness or palpitations. She had associated mild cough w/ blood tinged sputum but otherwise non- productive. She has associated achey joint/muscle pain in shoulders and knees. She had flu shot this year. Denies sinus congestion, runny nose, watery eyes. Denies sick contacts. She now has a nose bleed presumably after blowing her nose. Is on ASA/plavix. Dyspnea is slightly worse with recumbent positioning. Denies LE swelling. Denies hx of blood clots. Denies abd pain, N, V, D, C. Past History - Past Medical History Allergies/Adverse Reactions: Allergies Allergy/AdvReac Type Severity Reaction Status Date / Time acetaminophen Allergy Verified 08/08/17 09:37 [From Tylenol-Codeine] aspirin Allergy Verified 08/08/17 09:37 codeine phosphate Allergy Verified 08/08/17 09:37 [From Tylenol-Codeine] Home Medications: Ambulatory Orders Tramadol HCl [Ultram -] 50 mg PO Q8H PRN #30 tablet NS MDD 3 12/03/16 Buspirone HCl [Buspar -] 10 mg PO TID tablet 12/04/16 Allopurinol [Zyloprim -] 100 mg PO DAILY #0 tab 12/05/16 Amlodipine Besylate [Norvasc -] 5 mg PO DAILY #0 tablet 12/05/16 Aspirin [Ecotrin] 81 mg PO DAILY #0 tab MDD Daily 12/05/16 Atorvastatin Calcium 40 mg PO HS #0 tab 12/05/16 Cholecalciferol (Vitamin D3) [Vitamin D3 -] 1,000 unit PO DAILY #0 tab 12/05/16 Clopidogrel Bisulfate [Clopidogrel] 75 mg PO DAILY #0 tab 12/05/16 Colchicine [Colcrys] 0.6 mg PO DAILY #0 tab 12/05/16 Cyanocobalamin (Vitamin B-12) [Vitamin B-12] 5,000 mcg SL DAILY #0 tab 12/05/16 Divalproex Sodium [Depakote ER] 500 mg PO DAILY #0 tab 12/05/16 Metoprolol Tartrate 25 mg PO DAILY #0 tab 12/05/16 Multivit-Min/FA/Lycopen/Lutein [Centrum Silver Tablet] 1 each PO DAILY #0 tab [place]-3/Dha/Epa/Fish Oil [Fish Oil 1,000 mg Softgel] 1,000 mg PO DAILY #0 tab Amitriptyline HCl [Elavil -] 25 mg PO HS 08/08/17 Gabapentin 200 mg PO DAILY 08/08/17 Gluc White/Chondro White A/Vit C/Mn [Glucosamine Chondroitin Tab] 1 each PO DAILY Omeprazole Magnesium [Prilosec Otc] 20 mg PO DAILY 08/08/17 Cardiac Disorders: Yes (STENT 2015) COPD: No HTN: Yes Hypercholesterolemia: Yes Seizures: Yes - Surgical History Cardiac Surgery: Yes (angioplasty) Orthopedic Surgery: Yes (HERNIATED DISC) - Immunization History Immunization Up to Date: Yes - Suicide/Smoking/Psychosocial Hx Smoking History: Never smoked Have you smoked in the past 12 months: No Number of Cigarettes Smoked Daily: 0 Information on smoking cessation initiated: No Hx Alcohol Use: No Drug/Substance Use Hx: No Substance Use Type: None *Physical Exam - Vital Signs Last Vital Signs Temp Pulse Resp BP Pulse Ox 98.5 F 79 17 120/70 97 08/08/17 09:32 08/08/17 09:32 08/08/17 09:32 08/08/17 09:32 08/08/17 09:32 - Physical Exam Comments: GEN: AAOx3, NAD, Sitting up in bed with yellow mask HEENT: PERRLA, EOMi, No JVD, No sinus tenderness, erythematous nasal turbinates w/ dried blood, no enlarged LN, no tonsillar LAD CV: S1, S2, RRR LUNG: Grossly clear, though difficult to take deep breaths ABD: Soft, NT, ND, normoactive BS MSK: No edema, no erythema, normal strength and sensation NEURO: CN 2-12 grossly intact ED Treatment Course - LABORATORY CBC & Chemistry Diagram: 08/08/17 11:00 08/08/17 11:00 - RADIOLOGY Radiology Studies Ordered: Category Date Time Status CHEST PA & LAT [RAD] Stat Radiology 08/08/17 10:11 Ordered Medical Decision Making - Medical Decision Making Pt is an 86yo F with cardiac Hx presenting w/ gradual onset SOB, muscle aches, and nonproductive cough w/ blood tinged sputum. DDx includes Viral etiology such as influenza though pt has had flu shot this year. Other infectious etiologies include PNA. Other DDx include cardiac causes such as atypical [place] or CHF exacerbation though patient is not fluid overloaded on exam. Will get CBC, CMP. Will get Troponin, EKG to r/o [place]. Will get CXR to check for PNA. Will get BNP to check for fluid overload on heart. 08/08/17 13:22 --CXR appears WNL no obvious infiltrate or pleural effusion, await final read --Flu negative --CBC, CMP, Trops, BNP are all WNL 08/08/17 13:[address] Zimmerman (PMD) and Dr Mendoza (Irrigator) who states that since workup is negative, patient can be safely discharged home. Likely viral etiology. Pt to followup w/ PMD within 1 week. *DC/Admit/Observation/Transfer Diagnosis at time of Disposition: Viral respiratory illness - Discharge Dispostion Disposition: HOME Condition at time of disposition: Improved Admit: No - Referrals Referrals: Pb Zimmerman MD [Primary Care Provider] - 1 week James Wyatt MD [Staff Physician] - 1 week - Patient Instructions Printed Discharge Instructions: DI for Viral Upper Respiratory Infection -- Adult - Post Discharge Activity
[2017-08-08 11:11] LABS: BASO % 0.5 % (0-2.0); EOS % 0.7 % (0-4.5); HEMATOCRIT 41.6 % (32.4-45.2); HEMOGLOBIN 13.4 GM/dL (10.7-15.3); LYMPH % 19.6 % (8-40); MCH 29.9 pg (25.7-33.7); MCHC 32.2 g/dl (32.0-36.0); MEAN CELL VOLUME 92.9 fl (80-96); MONO % 7.7 % (3.8-10.2); NEUT % 71.5 % (42.8-82.8); PLATELET COUNT 221 K/MM3 (134-434); RBC 4.48 M/mm3 (3.60-5.2); RDW 14.8 % (11.6-15.6); WHITE BLOOD COUNT 5.4 K/mm3 (4.0-10.0)
[2017-08-08 11:48] LABS: ANION GAP 7 (8-16); BILIRUBIN,TOTAL 0.4 mg/dL (0.2-1.0); BLOOD UREA NITROGEN 26 mg/dL (7-18); CALCIUM 9.4 mg/dL (8.5-10.1); CHLORIDE 102 mmol/L (98-107); CO2 32 mmol/L (21-32); CREATININE 1.1 mg/dL (0.55-1.02); GLUCOSE,RANDOM 101 mg/dL (74-106); SGOT/AST 19 U/L (15-37); SGPT/ALT 23 U/L (12-78); SODIUM 141 mmol/L (136-145)
[2017-08-08 11:50] LABS: ALK PHOS 92 U/L (45-117)
[2017-08-08 15:18] VITALS: BP 133/65; PULSE 78; TEMP 97.7
--- NOTE | 2017-08-11 21:55 | EKG ---
Test Reason : Blood Pressure : / mmHG Vent. Rate : 084 BPM Atrial Rate : 084 BPM P-R Int : 168 ms QRS Dur : 102 ms QT Int : 408 ms P-R-T Axes : 003 012 011 degrees QTc Int : 482 ms NORMAL SINUS RHYTHM NONSPECIFIC T WAVE ABNORMALITY PROLONGED QT ABNORMAL ECG WHEN COMPARED WITH ECG OF 02-DEC-2016 08:18, NO SIGNIFICANT CHANGE WAS FOUND Confirmed by CAROLYN VALADEZ MD ([id number]) on 08/11/2017 9:55:29 PM Referred By: Confirmed By:CAROLYN VALADEZ MD
== END 2017-08-08 15:35 | disposition home or self-care (01) ==
LOC: JER 09:14
DX: J06.9 Acute upper respiratory infection, unspecified (principal); I25.10 Atherosclerotic heart disease of native coronary artery without angina pectoris; I11.0 Hypertensive heart disease with heart failure; Z95.5 Presence of coronary angioplasty implant and graft; E78.00 Pure hypercholesterolemia, unspecified; G40.909 Epilepsy, unspecified, not intractable, without status epilepticus
CPT/HCPCS: 36415; 71046-TC; 80053; 83880; 84484; 85025; 87804; 93005; 93010; 99282-25

== ENCOUNTER 2018-02-07 07:29 | Emergency (ER) | payer BC ==
[2018-02-07 07:51] VITALS: TEMP 97.5; BMI 32.3
--- NOTE | 2018-02-07 09:09 | PDOC ---
Attending Attestation - Resident Resident Name: Dacia Gloria - ED Attending Attestation I have performed the following: I have examined & evaluated the patient, The case was reviewed & discussed with the resident, I agree w/resident's findings & plan, Exceptions are as noted - HPI HPI: 02/07/18 09:08 87y F hx of htn, hl, cad, resents with complaint R sided chest pain since eysterday. The patient noted that she started feeling mild R chest pain that is worse when she takes a deep breath or lays down. Pt endorsed SOB initially, but states it is due to the pain that is limiting her ability to breath. No associated sob, [place], diaprhosis, fever/chills, n/v, worsening with food intake, cough, hemopytsis, leg swelling, numbness/tingling/weakness/rashes, leg pain. Pt enodrses some edema in b/l LE that are chronic and at baseline. pt notes that her brother a few months ago and the past few weeks she was cleaning things, and started to feel mild intermittent pain in the same region buit it has worsened significantly the past 2 days. GENERAL: The patient is awake, alert, and fully oriented, Nontoxic - in no acute distress. HEAD: Normocephalic, atraumatic. EYES: extraocular movements intact, sclera anicteric, conjunctiva clear. ENT: Normal voice, Moist mucous membranes. NECK: Normal range of motion, supple LUNGS: Breath sounds equal, clear to auscultation bilaterally. No wheezes, no rhonchi, no rales. HEART: Regular rate and rhythm, normal S1 and S2 without murmur, rub or gallop. ABDOMEN: Soft, nontender, normoactive bowel sounds. No guarding, no rebound. . No CVA tenderness EXTREMITIES: Normal range of motion, +pitting edema b/l in LE, no calf tenderness, neg homans, +reproducible pain with abduction of R shoulder NEUROLOGICAL: No facial assymetry, Normal speech, PSYCH: Normal mood, normal affect. SKIN: Warm, Dry, normal turgor, ddx: suspect msk due to positional nature and reproducible nature with R abduction of shoulder/arm consider possibly early zoster/shingles, however no rash consider acs, however pain highly atypical of acs will ck xray to r/o ptx will give motrin for pain will obtain cbc, cmp, ekg, trop x 1 will reassess PMD: Dr. Zimmerman - Physicial Exam PE: 02/08/18 09:21 seen above - Medical Decision Making 02/07/18 11:20 pts labs unremarkable pt feeling improved will dc the pt with pmd fu supportive measures at home return precautions were discussed Heart Score/ECG Review - ECG Impressions Comment:: 02/07/18 10:29 Twelve-lead EKG was performed and reviewed by me. There is normal sinus rhythm with a normal rate. rate of 74 axis is normal
[2018-02-07] MEDS ORDERED: IBUPROFEN 400 MG TABLET (FP) PO ONE ×2 (09:21→09:39)
[2018-02-07] MEDS ORDERED: ACETAMINOPHEN 325 MG TABLET (FP) PO ONE (09:40)
[2018-02-07 10:06] LABS: BASO % 0.2 % (0-2.0); EOS % 0.8 % (0-4.5); HEMATOCRIT 40.6 % (32.4-45.2); HEMOGLOBIN 13.6 GM/dL (10.7-15.3); LYMPH % 15.5 % (8-40); MCH 30.7 pg (25.7-33.7); MCHC 33.4 g/dl (32.0-36.0); MEAN CELL VOLUME 91.8 fl (80-96); MEAN PLT VOLUME 8.3 fl (7.5-11.1); MONO % 5.8 % (3.8-10.2); NEUT % 77.7 % (42.8-82.8); PLATELET COUNT 212 K/MM3 (134-434); RBC 4.43 M/mm3 (3.60-5.2); RDW 14.8 % (11.6-15.6); WHITE BLOOD COUNT 5.5 K/mm3 (4.0-10.0)
[2018-02-07 10:13] LABS: ALBUMIN 4.1 g/dl (3.4-5.0); ANION GAP 7 (8-16); BILIRUBIN,TOTAL 0.5 mg/dL (0.2-1.0); BLOOD UREA NITROGEN 24 mg/dL (7-18); CALCIUM 10.1 mg/dL (8.5-10.1); CHLORIDE 103 mmol/L (98-107); CO2 29 mmol/L (21-32); GLUCOSE,RANDOM 101 mg/dL (74-106); POTASSIUM 4.4 mmol/L (3.5-5.1); SGOT/AST 23 U/L (15-37); SGPT/ALT 22 U/L (12-78); SODIUM 139 mmol/L (136-145); TOT PROT 7.8 g/dl (6.4-8.2)
[2018-02-07 10:15] LABS: ALK PHOS 79 U/L (45-117)
--- NOTE | 2018-02-07 10:38 | PDOC ---
History of Present Illness - General Chief Complaint: Shortness of Breath Stated Complaint: TROUBLE BREATHING Time Seen by Provider: 02/07/18 08:50 History Source: Patient, Family (Daughter) - History of Present Illness Initial Comments: 02/07/18 10:31 *Daughter helped to translate Patient is a 87 yo female with PMH of CAD s/p stent placement, HTN, HLD presenting to ED with complaints of right lower chest pain which causes difficulty breathing. The pain started last night. Patient says that the pain is along her right rib and goes to the back. Taking in deep breaths illicits the pain. Laying down in a certain position helps reduce the pain. She has also been having some coughs with clear sputum production. She denies left sided chest pain, palpitations, headache, syncope, abdominal pain, N/V/D, dysuria, leg swelling. Patient's son earlier this year and she is cleaning up her house and packing things. Daughter thinks this may be causing strain on her muscles. PCP: Commentucci PMH: see hpi PSH: hernia repair, hysterectomy, stent placement Allergies: ASA (swelling), codeine (rash) Past History - Past Medical History Allergies/Adverse Reactions: Allergies Allergy/AdvReac Type Severity Reaction Status Date / Time acetaminophen Allergy Verified 02/07/18 10:50 [From Tylenol-Codeine] aspirin Allergy Verified 02/07/18 10:50 codeine phosphate Allergy Verified 02/07/18 10:50 [From Tylenol-Codeine] Penicillins Allergy Verified 02/07/18 10:50 Home Medications: Ambulatory Orders traMADol HCL [Ultram -] 50 mg PO Q8H PRN #30 tablet NS MDD 3 12/03/16 Buspirone HCl [Buspar -] 10 mg PO TID tablet 12/04/16 Allopurinol [Zyloprim -] 100 mg PO DAILY #0 tab 12/05/16 Amlodipine Besylate [Norvasc -] 5 mg PO DAILY #0 tablet 12/05/16 Aspirin [Ecotrin] 81 mg PO DAILY #0 tab MDD Daily 12/05/16 Atorvastatin Calcium 40 mg PO HS #0 tab 12/05/16 Cholecalciferol (Vitamin D3) [Vitamin D3 -] 1,000 unit PO DAILY #0 tab 12/05/16 Clopidogrel Bisulfate [Clopidogrel] 75 mg PO DAILY #0 tab 12/05/16 Colchicine [Colcrys] 0.6 mg PO DAILY #0 tab 12/05/16 Cyanocobalamin (Vitamin B-12) [Vitamin B-12] 5,000 mcg SL DAILY #0 tab 12/05/16 Divalproex Sodium [Depakote ER] 500 mg PO DAILY #0 tab 12/05/16 Metoprolol Tartrate 25 mg PO DAILY #0 tab 12/05/16 Multivit-Min/FA/Lycopen/Lutein [Centrum Silver Tablet] 1 each PO DAILY #0 tab [place]-3/Dha/Epa/Fish Oil [Fish Oil 1,000 mg Softgel] 1,000 mg PO DAILY #0 tab Amitriptyline HCl [Elavil -] 25 mg PO HS 08/08/17 Gabapentin 200 mg PO DAILY 08/08/17 Gluc White/Chondro White A/Vit C/Mn [Glucosamine Chondroitin Tab] 1 each PO DAILY Cardiac Disorders: Yes (STENT 2015) COPD: No HTN: Yes Hypercholesterolemia: Yes Seizures: Yes - Surgical History Cardiac Surgery: Yes (angioplasty) Orthopedic Surgery: Yes (HERNIATED DISC) - Immunization History Immunization Up to Date: Yes - Suicide/Smoking/Psychosocial Hx Smoking History: Unknown if ever smoked Have you smoked in the past 12 months: No Number of Cigarettes Smoked Daily: 0 Hx Alcohol Use: No Drug/Substance Use Hx: No Substance Use Type: None Review of Systems - Review of Systems Constitutional: No: Chills, Fever, Night Sweats HEENTM: No: Recent change in vision, Throat Pain, Throat Swelling, Difficulty Swallowing Respiratory: Yes: Cough (productive of clear sputum), Shortness of Breath. No: Orthopnea, Wheezing Cardiac (ROS): Yes: Chest Pain (R lower chest pain). No: Lightheadedness, Palpitations, Syncope, Chest Tightness ABD/GI: No: Constipated, Diarrhea, Nausea, Vomiting, Abdominal cramping : No: Burning, Dysuria Musculoskeletal: Yes: See HPI, Joint Pain Integumentary: No: Change in Color, Lesions, Rash Neurological: No: Headache, Numbness, Paresthesia, Tingling Psychiatric: No: Anxiety, Depression, Emotional Problems *Physical Exam - Vital Signs Last Vital Signs Temp Pulse Resp BP Pulse Ox 97.5 F L 82 15 150/68 98 02/07/18 07:48 02/07/18 07:48 02/07/18 07:48 02/07/18 07:48 02/07/18 07:48 - Physical Exam General Appearance: Yes: Nourished, Appropriately Dressed. No: Apparent Distress HEENT: positive: EOMI, TL, Normal ENT Inspection. negative: Scleral Icterus ( L), Nasal Congestion Neck: positive: Trachea midline, Supple. negative: Carotid bruit Respiratory/Chest: positive: Lungs Clear, Normal Breath Sounds. negative: Respiratory Distress, Crackles, Rales, Rhonchi, Stridor, Wheezing Cardiovascular: positive: Regular Rhythm, Regular Rate, S1, S2. negative: Edema , JVD, Murmur Gastrointestinal/Abdominal: positive: Normal Bowel Sounds, Soft. negative: Tender, Guarding, Rebound, Tenderness Musculoskeletal: positive: Other (Pain with internal rotation, adduction). negative: CVA Tenderness, Vertebral Tenderness Extremity: positive: Normal Capillary Refill, Normal Range of Motion, Swelling ( Bilateral pitting edema of RLE and LLE). negative: Calf Tenderness Integumentary: positive: Normal Color, Dry, Warm. negative: Rash Neurologic: positive: staffing recruiter II-XII NML intact, Fully Oriented, Alert, Normal Mood/ Affect, Normal Response, Motor Strength /5 ED Treatment Course - LABORATORY CBC & Chemistry Diagram: 02/07/18 09:40 02/07/18 09:40 - ADDITIONAL ORDERS Additional order review: Laboratory Results 02/07/18 09:40 Sodium 139 Potassium 4.4 Chloride 103 Carbon Dioxide 29 Anion Gap 7 L BUN 24 H Creatinine 1.0 Creat Clearance w eGFR 52.45 Random Glucose 101 Calcium 10.1 Total Bilirubin 0.5 AST 23 ALT 22 Alkaline Phosphatase 79 Troponin I < 0.02 Total Protein 7.8 Albumin 4.1 02/07/18 09:40 RBC 4.43 MCV 91.8 MCHC 33.4 RDW 14.8 MPV 8.3 Neutrophils % 77.7 Lymphocytes % 15.5 D Monocytes % 5.8 Eosinophils % 0.8 Basophils % 0.2 - RADIOLOGY Radiology Studies Ordered: Category Date Time Status CHEST PA & LAT [RAD] Stat Radiology 02/07/18 09:19 Ordered - Medications Given in the ED: ED Medications Discontinued Medications Generic Name Dose Route Start Last Admin Trade Name Freq PRN Reason Stop Dose Admin Acetaminophen 650 mg 02/07/18 09:40 02/07/18 09:54 Tylenol - PO 02/07/18 09:41 Not Given ONCE ONE Ibuprofen 400 mg 02/07/18 09:21 02/07/18 09:42 Motrin - PO 02/07/18 09:22 400 mg ONCE ONE Administration Medical Decision Making - Medical Decision Making 02/07/18 10:42 Patient is a 87 year old female with PMH of CAD s/p stent placement, HTN, HLD presenting to ED with complaints of R lower chest pain. DDX: ACS, CHF, PNA, PTX, effusion, shingles, musculoskeletal. Bilateral breath sounds on physical exam without crackles or wheezing. Patient did not have new or increased swelling, did not appear fluid overloaded. No concern for ptx or chf. Patient did not have any vesicular lesions or rashes shingles less likely although it is still a possibility. CXR, EKG and troponin ordered. All labs and imaging returned wnl and did not show any acute process. Due to patient's presentation and reproducible pain with internal rotation and adduction of RUE most likely cause is muscle sprain. Pt has good PCP follow up and did not have an acute process at this time. Patient's vitals wnl. Deemed stable to go home. Pt and daughter agreed with plan. Patient given strict return precautions. Verbalized understanding. *DC/Admit/Observation/Transfer Diagnosis at time of Disposition: Musculoskeletal chest pain - Discharge Dispostion Disposition: HOME Condition at time of disposition: Improved - Referrals Referrals: Pb Zimmerman MD [Primary Care Provider] - - Patient Instructions Printed Discharge Instructions: DI for Muscle Strain, DI for Musculoskeletal Pain Additional Instructions: You were seen here today because you were having some chest pain and it caused difficulty breathing due to the pain. We did some blood tests, an EKG and a chest xray to make sure it wasn't the lung or heart causing the pain. We think the most likely cause of your pain is musculoskeletal, or a sprain. I recommend that you try to take it easy, do not put too much pressure or do any heavy lifting. Try to use your walker more than the cane. You can take ibuprofen or Tylenol for pain control as directed on the bottle. Please follow up with Dr. Commentucci Please come back to the ED if: the pain gets worse, if it becomes difficult for you to breathe, if you develop fever, if you notice new rashes, or any new concerning symptom. Thank you - Post Discharge Activity
[2018-02-07 11:28] VITALS: BP 145/104; PULSE 80
--- NOTE | 2018-02-08 15:20 | EKG ---
Test Reason : Blood Pressure : / mmHG Vent. Rate : 074 BPM Atrial Rate : 074 BPM P-R Int : 178 ms QRS Dur : 090 ms QT Int : 420 ms P-R-T Axes : 006 -07 000 degrees QTc Int : 466 ms NORMAL SINUS RHYTHM NORMAL ECG WHEN COMPARED WITH ECG OF 08-AUG-2017 10:54, NO SIGNIFICANT CHANGE WAS FOUND Confirmed by ARPITA JOSEPH MD ([id number]) on 02/08/2018 3:20:22 PM Referred By: Confirmed By:ARPITA JOSEPH MD
== END 2018-02-07 11:28 | disposition home or self-care (01) ==
LOC: JER 07:29
DX: R07.89 Other chest pain (principal); R60.0 Localized edema; I25.10 Atherosclerotic heart disease of native coronary artery without angina pectoris; I10 Essential (primary) hypertension; Z95.5 Presence of coronary angioplasty implant and graft; G40.909 Epilepsy, unspecified, not intractable, without status epilepticus; E78.00 Pure hypercholesterolemia, unspecified; Z88.0 Allergy status to penicillin; Z88.8 Allergy status to other drugs, medicaments and biological substances
CPT/HCPCS: 36415; 71046-TC-FY; 80053; 84484; 85025; 93005; 93010; 99284-25

== ENCOUNTER 2018-07-17 15:29 | Observation (INO) | payer BC ==
--- NOTE | 2018-07-17 15:35 | PDOC ---
Rapid Medical Evaluation Time Seen by Provider: 07/17/18 15:31 Medical Evaluation: Allergies Allergy/AdvReac Type Severity Reaction Status Date / Time acetaminophen Allergy Verified 02/07/18 10:50 [From Tylenol-Codeine] aspirin Allergy Verified 02/07/18 10:50 codeine phosphate Allergy Verified 02/07/18 10:50 [From Tylenol-Codeine] Penicillins Allergy Verified 02/07/18 10:50 07/17/18 15:32 I have performed a brief in-person evaluation of this patient. The patient presents with a chief complaint of:dizzyness, short of breath for many days worse with position change. sent by PMD Pertinent physical exam findings: none I have ordered the following: EKG The patient will proceed to the ED for further evaluation. Discharge Disposition - Referrals Referrals: Pb Zimmerman MD [Primary Care Provider] - - Patient Instructions - Post Discharge Activity
[2018-07-17 15:38] VITALS: BMI 32.2
[2018-07-17 16:14] LABS: HEMATOCRIT 38.2 % (32.4-45.2); HEMOGLOBIN 13.1 GM/dL (10.7-15.3); MCH 31.5 pg (25.7-33.7); MCHC 34.3 g/dl (32.0-36.0); MEAN CELL VOLUME 91.7 fl (80-96); PLATELET COUNT 237 K/MM3 (134-434); RBC 4.17 M/mm3 (3.60-5.2); RDW 14.8 % (11.6-15.6); WHITE BLOOD COUNT 5.4 K/mm3 (4.0-10.0)
[2018-07-17 16:51] LABS: ALBUMIN 3.8 g/dl (3.4-5.0); ALK PHOS 78 U/L (45-117); BILIRUBIN,TOTAL 0.3 mg/dL (0.2-1); BLOOD UREA NITROGEN 26 mg/dL (7-18); CALCIUM 9.5 mg/dL (8.5-10.1); CHLORIDE 107 mmol/L (98-107); CREATININE 1.1 mg/dL (0.55-1.3); GLUCOSE,RANDOM 83 mg/dL (74-106); N-TERMINAL BNP 471.5 pg/ml (5-450); POTASSIUM 4.3 mmol/L (3.5-5.1); SGOT/AST 21 U/L (15-37); SGPT/ALT 24 U/L (13-61); SODIUM 142 mmol/L (136-145); TOT PROT 7.3 g/dl (6.4-8.2)
[2018-07-17 16:52] LABS: ANION GAP 9 MMOL/L (8-16); CO2 27 mmol/L (21-32)
--- NOTE | 2018-07-17 17:08 | PDOC ---
Attending Attestation - HPI HPI: 07/17/18 17:40 The patient is a 87 year old female, accompanied by daughter, with a significant PMH of hypertension, hyperlipidemia, coronary artery disease s/p stent 2015, who presents to the emergency department sent in from PCP Dr Zimmerman for evaluation of oscillating heart rate seen on EKG. The patient states she occasionally feels her heart racing but not at presentation. The patient has a complaint of shortness of breath with exertion and worsening leg swelling. The patient denies any shortness of breath at rest. As per daughter, the patient lost her son around the holidays this time last year and has been having a difficult time. The patient denies chest pain, diaphoresis, headache and dizziness. Denies fever, chills, nausea, vomit, diarrhea and constipation. Denies dysuria, frequency, urgency and hematuria. Allergies: acetaminophen, aspirin, codeine, phosphate, Penicillins PCP: Dr Barreto Mechanical Shop Laborer: Dr Wyatt Documentation prepared by Mauricio Melchor, acting as medical voucher clerk for Ni Echeverria MD. <Mauricio Melchor - Last Filed: 07/17/18 17:40> - Resident Resident Name: Juan Bautista - ED Attending Attestation I have performed the following: I have examined & evaluated the patient, The case was reviewed & discussed with the resident, I agree w/resident's findings & plan, Exceptions are as noted - Physicial Exam PE: GENERAL: Awake, alert, and fully oriented, in no acute distress HEAD: No signs of trauma EYES: PERRLA, EOMI, sclera anicteric, conjunctiva clear ENT: Auricles normal inspection, hearing grossly normal, nares patent, oropharynx clear without exudates. Moist mucosa NECK: Normal ROM, supple, no lymphadenopathy, JVD, or masses LUNGS: Breath sounds equal, clear to auscultation bilaterally. No wheezes, and no crackles HEART: Regular rate and rhythm, normal S1 and S2, no murmurs, rubs or gallops ABDOMEN: Soft, nontender, normoactive bowel sounds. No guarding, no rebound. No masses EXTREMITIES: Normal range of motion, 1+ pitting edema BLE to knees. No clubbing or cyanosis. No cords, erythema, or tenderness NEUROLOGICAL: Cranial nerves II through XII grossly intact. Normal speech, normal gait SKIN: Warm, Dry, normal turgor, no rashes or lesions noted. - Medical Decision Making Outpatient EKG shows PAC, which may explain her symptoms. Will obtain labs to determine if any electrolyte abnormality. Will also check cardiac profile and TSH. Will d/w cardio. <Ni Echeverria - Last Filed: 07/17/18 17:52>
--- NOTE | 2018-07-17 17:45 | PDOC ---
History of Present Illness - General Chief Complaint: Lightheaded Stated Complaint: PCP SENT Time Seen by Provider: 07/17/18 15:31 History Source: Patient Exam Limitations: No Limitations - History of Present Illness Initial Comments: 07/17/18 17:29 87 yo F with a hx of CAD s/p stent (2016, denies GA), HTN, HLD, and epilepsy ( on depakote; last seizure 20+ years ago) presents to the emergency department as a referral from her PMD (Dr. Zimmerman) for cardiac, SOB, and dizziness evaluation. Per the patient, she has been experiencing increased SOB only with exertion for the last 10 days that terminates with rest. She endorses having increased bilateral shoulder pain during these episodes (has baseline bursitis/ arthritis per the patient's daughter in the shoulders). Per the patient, at her doctors office she was having "fast and slow heart rates". The provided EKG shows a PAC that does not appear on the EKGs here. Concurrently, she endorses having bilateral leg swelling worse on left than right without pain (chronic problem) and endorses eating a lot of salt over the holidays. In addition, she has been experiencing room spinning sensation that is paroxysmal in nature, worsens with positional changes (bending down, laying down), and terminates on its own without FND, nausea, vomiting, and visual changes. Denies the following : fevers, chills, headaches, chest pain, SOB, abdominal pain, dysuria, hematuria , diarrhea, hematochezia. No recent travels, hx of PE/DVT, recent surgeries and immobilizations. Meds: plavix, depakote, pepcid, amlodipine, allopurinol, toprolol, aspirin, atorvastatin. Allergies: PCN, acetaminophen, codeine Social: Denies tobacco, alcohol, and substance abuse. Lives with daughter. Identification Clerk: Dr. Wyatt. Past History - Past Medical History Allergies/Adverse Reactions: Allergies Allergy/AdvReac Type Severity Reaction Status Date / Time acetaminophen Allergy Verified 07/17/18 15:33 [From Tylenol-Codeine] aspirin Allergy Verified 07/17/18 15:33 codeine phosphate Allergy Verified 07/17/18 15:33 [From Tylenol-Codeine] Penicillins Allergy Verified 07/17/18 15:33 Home Medications: Ambulatory Orders Allopurinol [Zyloprim -] 100 mg PO DAILY 07/17/18 Amitriptyline HCl [Elavil -] 50 mg PO HS 07/17/18 Amlodipine Besylate [Norvasc -] 5 mg PO DAILY 07/17/18 Aspirin Coated [Ecotrin -] 81 mg PO DAILY 07/17/18 Atorvastatin Calcium 40 mg PO HS 07/17/18 Clopidogrel Bisulfate [Plavix -] 75 mg PO DAILY 07/17/18 Divalproex *ER* [Depakote *ER* -] 500 mg PO DAILY 07/17/18 Famotidine [Pepcid -] 20 mg PO DAILY 07/17/18 Metoprolol Succinate [Toprol Xl -] 25 mg PO DAILY 07/17/18 Cardiac Disorders: Yes (STENT 2015) COPD: No HTN: Yes Hypercholesterolemia: Yes Seizures: Yes - Surgical History Cardiac Surgery: Yes (angioplasty) Orthopedic Surgery: Yes (HERNIATED DISC) - Immunization History Immunization Up to Date: Yes - Suicide/Smoking/Psychosocial Hx Smoking History: Never smoked Have you smoked in the past 12 months: No Number of Cigarettes Smoked Daily: 0 Hx Alcohol Use: No Drug/Substance Use Hx: No Substance Use Type: None Review of Systems - Review of Systems Able to Perform ROS?: Yes Is the patient limited Kinyarwanda proficient: No Constitutional: No: Chills, Diaphoresis, Fever HEENTM: No: Blurred Vision, Recent change in vision, Ear Pain, Nose Pain, Throat Pain, Mouth Pain Respiratory: Yes: SOB with Exertion. No: Cough, Shortness of Breath, SOB at Rest, Hemoptysis Cardiac (ROS): Yes: Lightheadedness. No: Chest Pain, Palpitations, Syncope, Chest Tightness ABD/GI: No: Constipated, Diarrhea, Nausea, Poor Appetite, Poor Fluid Intake, Rectal Bleeding, Vomiting, Tarry Stools : No: Burning, Dysuria, Hematuria, Urgency Musculoskeletal: No: Back Pain, Joint Pain, Neck Pain Integumentary: No: Lesions, Lumps, Pruritus Neurological: No: Headache, Numbness, Tingling, Tremors, Weakness, Ataxia, Dizziness Psychiatric: No: Stressors Endocrine: No: Unexplained Weight Loss Hematologic/Lymphatic: No: Anemia *Physical Exam - Vital Signs Last Vital Signs Temp Pulse Resp BP Pulse Ox 97.7 F 83 16 140/71 97 07/17/18 15:37 07/17/18 15:37 07/17/18 15:37 07/17/18 15:37 07/17/18 15:37 - Physical Exam General Appearance: Yes: Nourished, Appropriately Dressed. No: Apparent Distress, Intoxicated HEENT: positive: EOMI, TL, Normal Voice, Symmetrical, Pharynx Normal, Hearing Grossly Normal. negative: Pale Conjunctivae, Scleral Icterus (R), Scleral Icterus (L), Muffled/Hoarse voice, Pharyngeal Erythema, Tonsillar Exudate, Tonsillar Erythema, Nasal Congestion, Sinus Tenderness, Excessive drooling Neck: positive: Trachea midline. negative: Tender, Lymphadenopathy (R), Lymphadenopathy (L), Tender lateral, Tender midline Respiratory/Chest: positive: Lungs Clear, Normal Breath Sounds. negative: Chest Tender, Respiratory Distress, Accessory Muscle Use, Rales, Rhonchi, Stridor, Wheezing, Hyperresonant Cardiovascular: positive: Regular Rhythm, Regular Rate, S1, S2. negative: Systolic Murmur Gastrointestinal/Abdominal: positive: Normal Bowel Sounds, Flat, Soft. negative : Tender Musculoskeletal: positive: Normal Inspection. negative: CVA Tenderness, Vertebral Tenderness Extremity: positive: Normal Capillary Refill, Normal Range of Motion, Pedal Edema, Swelling (bilateral leg swelling Left worse than right. no erythema and not hot to the touch). negative: Tender, Calf Tenderness Integumentary: positive: Normal Color, Dry, Warm. negative: Erythema, Moist, Rash Neurologic: positive: title clerk automobile II-XII NML intact, Fully Oriented, Alert, Normal Mood/ Affect, Normal Response, Motor Strength 5/5. negative: EOM Palsy, Sensory Deficit Moderate Sedation - Procedure Monitoring Vital Signs: Procedure Monitoring Vital Signs Temperature 97.7 F 07/17/18 15:37 Pulse Rate 83 07/17/18 15:37 Respiratory Rate 16 07/17/18 15:37 Blood Pressure 140/71 07/17/18 15:37 O2 Sat by Pulse Oximetry (%) 97 07/17/18 15:37 ED Treatment Course - LABORATORY CBC & Chemistry Diagram: 07/17/18 16:00 07/17/18 16:00 - ADDITIONAL ORDERS Additional order review: Laboratory Results 07/17/18 16:00 Sodium 142 Potassium 4.3 Chloride 107 Carbon Dioxide 27 Anion Gap 9 BUN 26 H Creatinine 1.1 Creat Clearance w eGFR 46.98 Random Glucose 83 Calcium 9.5 Total Bilirubin 0.3 AST 21 ALT 24 Alkaline Phosphatase 78 Creatine Kinase 50 Troponin I < 0.02 B-Natriuretic Peptide 471.5 H Total Protein 7.3 Albumin 3.8 07/17/18 16:00 RBC 4.17 MCV 91.7 MCHC 34.3 RDW 14.8 MPV 8.0 Medical Decision Making - Medical Decision Making 07/17/18 17:48 87 yo F with a hx of CAD s/p stent (2016, denies GA), HTN, HLD, and epilepsy ( on depakote; last seizure 20+ years ago) presents to the emergency department as a referral from her PMD (Dr. Zimmerman) for cardiac, SOB, and dizziness evaluation. Initial vitals Initial Vital Signs Temp Pulse Resp BP Pulse Ox 97.7 F 83 16 140/71 97 07/17/18 15:37 07/17/18 15:37 07/17/18 15:37 07/17/18 15:37 07/17/18 15:37 Work up: ddx: EKG presenting from her PMD showed PAC likely causing the variable heart rate. ordered cbc, cmp, trops, bnp, cxr for further evaluation to assess if electrolyte abnormality vs infectious etiology vs underlying CHF Laboratory Tests 07/17/18 07/17/18 07/17/18 05:49 05:49 16:00 WBC 5.4 RBC 4.17 Hgb 13.1 Hct 38.2 MCV 91.7 MCH 31.5 MCHC 34.3 RDW 14.8 Plt Count 237 MPV 8.0 ESR 13 Sodium Potassium Chloride Carbon Dioxide Anion Gap BUN Creatinine Creat Clearance w eGFR Random Glucose Calcium Total Bilirubin AST ALT Alkaline Phosphatase Creatine Kinase Cancelled Troponin I Cancelled B-Natriuretic Peptide Total Protein Albumin TSH Free T4 07/17/18 07/17/18 16:00 16:00 WBC RBC Hgb Hct MCV MCH MCHC RDW Plt Count MPV ESR Sodium 142 Potassium 4.3 Chloride 107 Carbon Dioxide 27 Anion Gap 9 BUN 26 H Creatinine 1.1 Creat Clearance w eGFR 46.98 Random Glucose 83 Calcium 9.5 Total Bilirubin 0.3 AST 21 ALT 24 Alkaline Phosphatase 78 Creatine Kinase 50 Troponin I < 0.02 B-Natriuretic Peptide 471.5 H Total Protein 7.3 Albumin 3.8 TSH 2.92 Free T4 1.08 patient endorses having extra salt over the past few days for meals. BNP was elevated from previous visit. trops were negative, TSH not elevated or decreased. will admit to obs tele. the case was discussed with Dr. Wyatt. Dispo: obs tele *DC/Admit/Observation/Transfer Diagnosis at time of Disposition: PAC (premature atrial contraction), Shortness of breath on exertion - Referrals - Patient Instructions - Post Discharge Activity
[2018-07-17] MEDS ORDERED: amLODIPine BESYLATE 5 MG TABLET (FP) PO ONE (20:40)
[2018-07-17] MEDS ORDERED: DULoxetine HCL 20 MG CAPSULE.DR (FP) PO ONE (20:46)
[2018-07-17] MEDS: ALPRAZolam 0.25 MG TABLET PO SCH (23:00)
[2018-07-17] MEDS: metoPROLOL SUCCINATE 25 MG TAB.SR.24H (FP) PO SCH (23:00)
[2018-07-17] MEDS ORDERED: ALPRAZolam 0.25 MG TABLET ONE (23:49)
[2018-07-18 06:34] LABS: CHOLESTEROL 143 mg/dL (50-200); HDL CHOLESTEROL 59 mg/dL (40-60); TRIGLYCERIDES 109 mg/dL (0-150)
[2018-07-18 10:09] LABS: URIC ACID 4.6 mg/dL (2.6-7.2)
--- NOTE | 2018-07-18 10:31 | CON.CARD ---
Cardiology Consult (text) - Consultation Consultation Note: HPI: 87 year old female with past medical history significant for hypertension, hyperlipidemia, coronary artery disease status post percutaneous intervention with TIMO to D1 in February of 2016 with residual moderate OM1 disease, chronic diastolic heart failure, chronic dizziness referred to ED with fast heart rate, shortness of breath and increased lower extremity swelling. Patient states she has not felt good since her son 1- months ago. Has notices increased fluid in her legs since eating at her nephews house over the holidays. +salty foods. Denies any lh, dizziness, syncope or chest pain. In ED , patient hemodynamically stable found to have elevated BNP to 471. Past Medical History TRAFFIC CHIEF Seizure Cardio/Vascular CAD,CHF,HTN,Hyperlipdemia Gastrointestinal Constipation,Diverticulosis,GERD Renal/ Renal Inusuff Heme/Onc Anemia Psych Depression Endocrine Osteopenia,Other Additional Medical History Seizure disorder Past Surgical History Past Surgical History Hernia Repair,Laminectomy,Stent Family Hx: NC Social Hx: denies alcohol, drugs or tobacco. Physical Exam Vital Signs - 24 hr 07/17/18 07/17/18 07/18/18 15:37 19:10 04:24 Temperature 97.7 F 99.2 F 98.6 F Pulse Rate 83 Pulse Rate [ 82 75 Left Radial] Respiratory 16 16 16 Rate Blood Pressure 140/71 Blood Pressure 163/79 147/59 L [Left Arm] O2 Sat by Pulse 97 98 96 Oximetry (%) Gen: well appearing female sitting upright in NAD HEENT: NC/AT. OP Clear Cardiac: S1/S2 no murmurs. JVP 8cm Pulm: clear breath sounds bilaterally. No rales. Ext: 1+ edema Laboratory Results - last 24 hr 07/17/18 07/17/18 07/17/18 05:49 16:00 16:00 WBC 5.4 RBC 4.17 Hgb 13.1 Hct 38.2 MCV 91.7 MCH 31.5 MCHC 34.3 RDW 14.8 Plt Count 237 MPV 8.0 Sodium 142 Potassium 4.3 Chloride 107 Carbon Dioxide 27 Anion Gap 9 BUN 26 H Creatinine 1.1 Creat Clearance w eGFR 46.98 Random Glucose 83 Uric Acid Calcium 9.5 Total Bilirubin 0.3 AST 21 ALT 24 Alkaline Phosphatase 78 Creatine Kinase Cancelled 50 Troponin I Cancelled < 0.02 B-Natriuretic Peptide 471.5 H Total Protein 7.3 Albumin 3.8 Triglycerides Cholesterol Total LDL Cholesterol HDL Cholesterol TSH Free T4 Valproic Acid 07/17/18 07/18/18 07/18/18 16:00 05:49 05:49 WBC RBC Hgb Hct MCV MCH MCHC RDW Plt Count MPV Sodium Potassium Chloride Carbon Dioxide Anion Gap BUN Creatinine Creat Clearance w eGFR Random Glucose Uric Acid 4.6 Calcium Total Bilirubin AST ALT Alkaline Phosphatase Creatine Kinase 43 Troponin I < 0.02 B-Natriuretic Peptide Total Protein Albumin Triglycerides 109 Cholesterol 143 Total LDL Cholesterol 61 HDL Cholesterol 59 TSH 2.92 Free T4 1.08 Valproic Acid 49.0 L Active Medications Allopurinol (Zyloprim -) 100 mg PO DAILY [facility] Alprazolam (Xanax -) 0.25 mg PO BID [facility] Last Admin: 07/17/18 23:00 Dose: 0.25 mg Amlodipine Besylate (Norvasc -) 5 mg PO DAILY [facility] Clopidogrel Bisulfate (Plavix -) 75 mg PO DAILY [facility] Duloxetine HCl (Cymbalta -) 40 mg PO DAILY [facility] Enoxaparin Sodium (Lovenox -) 40 mg SQ DAILY [facility] Metoprolol Succinate (Toprol Xl -) 25 mg PO BID [facility] Last Admin: 07/17/18 23:00 Dose: 25 mg A/P: 87 year old female with past medical history significant for hypertension, hyperlipidemia, coronary artery disease status post percutaneous intervention with TIMO to D1 in February of 2016 with residual moderate OM1 disease, chronic diastolic heart failure, chronic dizziness referred to ED with fast heart rate, shortness of breath and increased lower extremity swelling. #Acute on Chronic Diastolic Heart Failure; mildly volume up on exam, BNP 471 Etiology: likely dietary indiscretion during holiday Workup: --ECG NSR --trop negative X2 --BNP 400s --CXR without edema --echocardiogram 2018: normal systolic function, mild LVH, mild aortic regurg Treatment: --give lasix 40mg IV for goal of net negative 1L daily --daily weights, strict i/os, low Na diet, goal K>4, Mg>2 #Palpitations --ECG with normal sinus rhythm --telemetry --continue metoprolol --order 14 day event monitor and follow-up as outpatient #CAD s/p PCI; continue home metoprolol, plavix, and amlodipine We will continue to follow Stone Damon MD
[2018-07-18] MEDS: ENOXAPARIN NA (PORCINE) 40 MG/0.4 ML DISP.SYRIN SQ SCH (10:53)
[2018-07-18] MEDS: DULoxetine HCL 20 MG CAPSULE.DR (FP) PO SCH (10:53)
[2018-07-18] MEDS: ALLOPURINOL 100 MG TABLET (FP) PO SCH (10:54)
[2018-07-18] MEDS: ALPRAZolam 0.25 MG TABLET PO SCH ×2 (10:54→21:14)
[2018-07-18] MEDS: metoPROLOL SUCCINATE 25 MG TAB.SR.24H (FP) PO SCH ×2 (10:54→21:14)
[2018-07-18] MEDS: CLOPIDOGREL BISULFATE 75 MG TABLET (FP) PO SCH (10:54)
[2018-07-18] MEDS: amLODIPine BESYLATE 5 MG TABLET (FP) PO SCH (10:54)
--- NOTE | 2018-07-18 13:27 | EKG ---
Test Reason : Blood Pressure : / mmHG Vent. Rate : 082 BPM Atrial Rate : 082 BPM P-R Int : 172 ms QRS Dur : 092 ms QT Int : 402 ms P-R-T Axes : 012 001 014 degrees QTc Int : 469 ms NORMAL SINUS RHYTHM NORMAL ECG WHEN COMPARED WITH ECG OF 07-FEB-2018 09:43, NO SIGNIFICANT CHANGE WAS FOUND Confirmed by QUIANA FOOTE MD ([id number]) on 07/18/2018 1:27:22 PM Referred By: MELLISSA Confirmed By:QUIANA FOOTE MD
[2018-07-18] MEDS ORDERED: FUROSEMIDE 40 MG/4 ML INJECTABLE VIAL IVPUSH ONE (14:33)
[2018-07-18] MEDS ORDERED: FUROSEMIDE 40 MG/4 ML INJECTABLE VIAL ONE (15:08)
[2018-07-18] MEDS ORDERED: FUROSEMIDE 40 MG TABLET (FP) ONE (15:14)
[2018-07-18] MEDS ORDERED: FUROSEMIDE 40 MG TABLET (FP) PO ONE (15:18)
--- NOTE | 2018-07-18 16:10 | HP ---
Admitting History and Physical - Primary Care Physician PCP: Pb Zimmerman - Admission Chief Complaint: unsettled; PRESTON History of Present Illness: 87 YO F with hypertensive heart dz; seen by me in the office yesterday c/o increasing restlessness over the past few weeks. Home BP readings for the past 7 days showed elevated SBP. She c/o positional unspecified dizziness; PRESTON ( though not entirely new); generalized aches and pains; some leg swelling. Daughter states that she had eaten foods saltier than she usually has over the hol. She denied resting CP/Palpitations, n-v, but c/o anxiiety ( stemming from her being alone much of the day and unable to go out on her own) producing unease. Her daughter states that she is managing her own meds, and believes that she is taking all her meds as she should (but isn't sure). No recent changes have been made with her meds, and she hasn't been seen by her heart MD since the summer. Daughter states that she keeps rumminating of the premature passing of her son earlier this year. History Source: Patient, Family Member Limitations to Obtaining History: No Limitations - Past Medical History PSYCHOLOGY TECH: Yes: Seizure Cardiovascular: Yes: CAD (s/p PCI 02/2016 [place]), CHF, HTN, Hyperlipdemia Gastrointestinal: Yes: Constipation, Diverticulosis, GERD Renal/: Yes: Renal Inusuff Heme/Onc: Yes: Anemia Psych: Yes: Anxiety, Depression Musculoskeletal: Yes: Osteoarthritis Endocrine: Yes: Osteopenia, Other - Past Surgical History Past Surgical History: Yes: Hernia Repair (spine surgery for disc hernaition Lipoma excized cataracts), Laminectomy, Stent - Smoking History Smoking history: Never smoked Have you smoked in the past 12 months: No Aproximately how many cigarettes per day: 0 - Alcohol/Substance Use Hx Alcohol Use: No History of Substance Use: reports: None - Social History Usual Living Arrangement: Yes: Alone ADL: Family Assistance History of Recent Travel: No Home Medications - Allergies Allergies/Adverse Reactions: Allergies Allergy/AdvReac Type Severity Reaction Status Date / Time acetaminophen Allergy Verified 07/17/18 15:33 [From Tylenol-Codeine] aspirin Allergy Verified 07/17/18 15:33 codeine phosphate Allergy Verified 07/17/18 15:33 [From Tylenol-Codeine] Penicillins Allergy Verified 07/17/18 15:33 - Home Medications Home Medications: Ambulatory Orders Allopurinol [Zyloprim -] 100 mg PO DAILY 07/17/18 Amitriptyline HCl [Elavil -] 50 mg PO HS 07/17/18 Amlodipine Besylate [Norvasc -] 5 mg PO DAILY 07/17/18 Aspirin Coated [Ecotrin -] 81 mg PO DAILY 07/17/18 Atorvastatin Calcium 40 mg PO HS 07/17/18 Clopidogrel Bisulfate [Plavix -] 75 mg PO DAILY 07/17/18 Divalproex *ER* [Depakote *ER* -] 500 mg PO DAILY 07/17/18 Famotidine [Pepcid -] 20 mg PO DAILY 07/17/18 Metoprolol Succinate [Toprol Xl -] 25 mg PO DAILY 07/17/18 Family Disease History - Family Disease History Family Disease History: Diabetes: Father, Brother, Sister, Heart Disease: Mother , Other: Son (HTN), Daughter (HTN) Review of Systems - Review of Systems Constitutional: reports: Malaise Eyes: reports: No Symptoms HENT: reports: No Symptoms Neck: reports: No Symptoms Cardiovascular: reports: Palpitations, Shortness of Breath Respiratory: reports: SOB on Exertion Gastrointestinal: reports: Indigestion Genitourinary: reports: No Symptoms Breasts: reports: No Symptoms Reported Musculoskeletal: reports: Extremity Pain Integumentary: reports: No Symptoms Neurological: reports: Dizziness Endocrine: reports: No Symptoms Hematology/Lymphatic: reports: No Symptoms Psychiatric: reports: Anxiety, Depression Physical Examination Vital Signs: Vital Signs Temperature 98.5 F 07/18/18 11:03 Pulse Rate 77 07/18/18 11:03 Respiratory Rate 16 07/18/18 11:03 Blood Pressure 125/71 07/18/18 11:03 O2 Sat by Pulse Oximetry (%) 98 07/18/18 11:03 Constitutional: Yes: Anxious Eyes: Yes: Conjunctiva Clear, EOM Intact HENT: Yes: WNL Neck: Yes: WNL Cardiovascular: Yes: Regular Rate and Rhythm Respiratory: Yes: Regular, CTA Bilaterally Gastrointestinal: Yes: Normal Bowel Sounds ...Rectal Exam: Yes: Deferred Renal/: Yes: WNL Musculoskeletal: Yes: Joint Stiffness Extremities: Yes: WNL Edema: Yes Edema: RUE: Trace, LLE: Trace Peripheral Pulses WNL: Yes Integumentary: Yes: WNL Neurological: Yes: WNL, Alert ...Motor Strength: WNL Psychiatric: Yes: WNL Labs: CBC, BMP 07/17/18 16:00 07/17/18 16:00 CBCD WBC 5.4 K/mm3 (4.0-10.0) 07/17/18 16:00 RBC 4.17 M/mm3 (3.60-5.2) 07/17/18 16:00 Hgb 13.1 GM/dL (10.7-15.3) 07/17/18 16:00 Hct 38.2 % (32.4-45.2) 07/17/18 16:00 MCV 91.7 fl (80-96) 07/17/18 16:00 MCHC 34.3 g/dl (32.0-36.0) 07/17/18 16:00 RDW 14.8 % (11.6-15.6) 07/17/18 16:00 Plt Count 237 K/MM3 (134-434) 07/17/18 16:00 MPV 8.0 fl (7.5-11.1) 07/17/18 16:00 CMP Sodium 142 mmol/L (136-145) 07/17/18 16:00 Potassium 4.3 mmol/L (3.5-5.1) 07/17/18 16:00 Chloride 107 mmol/L (98-107) 07/17/18 16:00 Carbon Dioxide 27 mmol/L (21-32) 07/17/18 16:00 Anion Gap 9 MMOL/L (8-16) 07/17/18 16:00 BUN 26 mg/dL (7-18) H 07/17/18 16:00 Creatinine 1.1 mg/dL (0.55-1.3) 07/17/18 16:00 Creat Clearance w eGFR 46.98 (>60) 07/17/18 16:00 Random Glucose 83 mg/dL (74-106) 07/17/18 16:00 Calcium 9.5 mg/dL (8.5-10.1) 07/17/18 16:00 Total Bilirubin 0.3 mg/dL (0.2-1) 07/17/18 16:00 AST 21 U/L (15-37) 07/17/18 16:00 ALT 24 U/L (13-61) 07/17/18 16:00 Alkaline Phosphatase 78 U/L (45-117) 07/17/18 16:00 Total Protein 7.3 g/dl (6.4-8.2) 07/17/18 16:00 Albumin 3.8 g/dl (3.4-5.0) 07/17/18 16:00 CARDIAC ENZYMES Creatine Kinase 43 IU/L (26-192) 07/18/18 05:49 Troponin I < 0.02 ng/ml (0.00-0.05) 07/18/18 05:49 Imaging - Results Chest X-ray: Report Reviewed EKG: Report Reviewed Problem List - Problems (1) Tachycardia with heart rate 100-120 beats per minute Assessment/Plan: detected as OP on day of admission; at rest; which seem to be supraventricular, but of uncertain cause or trigger. She claims to be taking all her meds the same way, but feels under greater psychiatric duresse.PLAN: cardiac monitoring adjust BB dose. 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 CORONARY ARTERY W/O ANG PCTRS (4) Dizziness Assessment/Plan: now resolved as BP and HR seem better controlled; TSH in NL range; doubt CVA or TIA Code(s): R42 - DIZZINESS AND GIDDINESS (5) History of seizure disorder Assessment/Plan: questionable seizure VS other type of Neuro phenomenon but will cont the DEpakote as she is not toxic on it. Code(s): Z86.69 - PERSONAL HISTORY OF DIS OF THE NERVOUS SYS AND SENSE ORGANS (6) Antiplatelet or antithrombotic long-term use Assessment/Plan: since being stented Code(s): Z79.02 - SKILLED NURSING (CURRENT) USE OF ANTITHROMBOTICS/ANTIPLATELETS (7) Hyperlipidemia Assessment/Plan: not new; on statin Code(s): E78.5 - HYPERLIPIDEMIA, UNSPECIFIED Qualifiers: Hyperlipidemia type: unspecified Qualified Code(s): E78.5 - Hyperlipidemia , unspecified (8) Hyperuricemia Assessment/Plan: chronic; urate okay Code(s): E79.0 - HYPERURICEMIA W/O SIGNS OF INFLAM ARTHRIT AND TOPHACEOUS DIS (9) Osteoarthritis involving multiple joints on both sides of body Assessment/Plan: not new; with few options if any; as she is not a candidate for any elective orthopedic surgery (joint replacement) Code(s): M15.9 - POLYOSTEOARTHRITIS, UNSPECIFIED (10) Anxiety and depression Assessment/Plan: chronic; very pre-occupied and restless. PLAN stop Elavil as it may be the cause of her Cardiac arrhythmias and contributing to her high BP. PLAN Rx Cynbalta 40mg QD; PM Xanax for now Code(s): F41.9 - ANXIETY DISORDER, UNSPECIFIED; F32.9 - MAJOR DEPRESSIVE DISORDER, SINGLE EPISODE, UNSPECIFIED Assessment/Plan 87 YO F with SVT type rhythm who be admitted for observation & Med adjustment ~~~~~~~~~~~~~~~~~~~~~~ Dr Zimmerman
[2018-07-18] MEDS: ATORVASTATIN CA 20 MG TABLET (FP) PO SCH (21:14)
[2018-07-19] MEDS: ENOXAPARIN NA (PORCINE) 40 MG/0.4 ML DISP.SYRIN SQ SCH (09:05)
[2018-07-19] MEDS: CLOPIDOGREL BISULFATE 75 MG TABLET (FP) PO SCH (09:05)
[2018-07-19] MEDS: amLODIPine BESYLATE 5 MG TABLET (FP) PO SCH (09:05)
[2018-07-19] MEDS: ALLOPURINOL 100 MG TABLET (FP) PO SCH (09:05)
[2018-07-19] MEDS: metoPROLOL SUCCINATE 25 MG TAB.SR.24H (FP) PO SCH ×2 (09:05→21:19)
[2018-07-19] MEDS: DULoxetine HCL 20 MG CAPSULE.DR (FP) PO SCH (09:06)
--- NOTE | 2018-07-19 09:47 | PN ---
Progress Note (short form) - Note Progress Note: Subjective: --No acute events overnight --Denies any lh, dizziness, chest pain, palpitations, orthopnea, PND or DENA Objective: Vital Signs 07/19/18 02:00 Temperature 98.3 F Pulse Rate 70 Respiratory 20 Rate Blood Pressure 141/74 Gen: well appearing female sitting upright in NAD HEENT: NC/AT. OP Clear, MMM Cardiac: S1/S2 no murmurs Pulm: clear breath sounds bilaterally Ext: WWP. trace edema Laboratory Last Values WBC 5.4 K/mm3 (4.0-10.0) 07/17/18 16:00 RBC 4.17 M/mm3 (3.60-5.2) 07/17/18 16:00 Hgb 13.1 GM/dL (10.7-15.3) 07/17/18 16:00 Hct 38.2 % (32.4-45.2) 07/17/18 16:00 MCV 91.7 fl (80-96) 07/17/18 16:00 MCH 31.5 pg (25.7-33.7) 07/17/18 16:00 MCHC 34.3 g/dl (32.0-36.0) 07/17/18 16:00 RDW 14.8 % (11.6-15.6) 07/17/18 16:00 Plt Count 237 K/MM3 (134-434) 07/17/18 16:00 MPV 8.0 fl (7.5-11.1) 07/17/18 16:00 ESR 13 mm/hr (0-30) 07/17/18 05:49 Sodium 142 mmol/L (136-145) 07/17/18 16:00 Potassium 4.3 mmol/L (3.5-5.1) 07/17/18 16:00 Chloride 107 mmol/L (98-107) 07/17/18 16:00 Carbon Dioxide 27 mmol/L (21-32) 07/17/18 16:00 Anion Gap 9 MMOL/L (8-16) 07/17/18 16:00 BUN 26 mg/dL (7-18) H 07/17/18 16:00 Creatinine 1.1 mg/dL (0.55-1.3) 07/17/18 16:00 Creat Clearance w eGFR 46.98 (>60) 07/17/18 16:00 Random Glucose 83 mg/dL (74-106) 07/17/18 16:00 Uric Acid 4.6 mg/dL (2.6-7.2) 07/18/18 05:49 Calcium 9.5 mg/dL (8.5-10.1) 07/17/18 16:00 Total Bilirubin 0.3 mg/dL (0.2-1) 07/17/18 16:00 AST 21 U/L (15-37) 07/17/18 16:00 ALT 24 U/L (13-61) 07/17/18 16:00 Alkaline Phosphatase 78 U/L (45-117) 07/17/18 16:00 Creatine Kinase 43 IU/L (26-192) 07/18/18 05:49 Troponin I < 0.02 ng/ml (0.00-0.05) 07/18/18 05:49 B-Natriuretic Peptide 471.5 pg/ml (5-450) H 07/17/18 16:00 Total Protein 7.3 g/dl (6.4-8.2) 07/17/18 16:00 Albumin 3.8 g/dl (3.4-5.0) 07/17/18 16:00 Triglycerides 109 mg/dL (0-150) 07/18/18 05:49 Cholesterol 143 mg/dL (50-200) 07/18/18 05:49 Total LDL Cholesterol 61 mg/dL (5-100) 07/18/18 05:49 HDL Cholesterol 59 mg/dL (40-60) 07/18/18 05:49 TSH 2.92 uIU/ml (0.358-3.74) 07/17/18 16:00 Free T4 1.08 ng/dl (0.76-1.46) 07/17/18 16:00 Valproic Acid 49.0 ug/ml (50-100) L 07/18/18 05:49 Active Medications Allopurinol (Zyloprim -) 100 mg PO DAILY [facility] Last Admin: 07/19/18 09:05 Dose: 100 mg Alprazolam (Xanax -) 0.25 mg PO HS [facility] Last Admin: 07/18/18 21:14 Dose: 0.25 mg Amlodipine Besylate (Norvasc -) 5 mg PO DAILY [facility] Last Admin: 07/19/18 09:05 Dose: 5 mg Atorvastatin Calcium (Lipitor -) 20 mg PO HS [facility] Last Admin: 07/18/18 21:14 Dose: 20 mg Clopidogrel Bisulfate (Plavix -) 75 mg PO DAILY [facility] Last Admin: 07/19/18 09:05 Dose: 75 mg Duloxetine HCl (Cymbalta -) 40 mg PO DAILY [facility] Last Admin: 07/19/18 09:06 Dose: 40 mg Enoxaparin Sodium (Lovenox -) 40 mg SQ DAILY [facility] Last Admin: 07/19/18 09:05 Dose: 40 mg Metoprolol Succinate (Toprol Xl -) 25 mg PO BID [facility] Last Admin: 07/19/18 09:05 Dose: 25 mg A/P 87 year old female with past medical history significant for hypertension, hyperlipidemia, coronary artery disease status post percutaneous intervention with TIMO to D1 in February of 2016 with residual moderate OM1 disease, chronic diastolic heart failure, chronic dizziness referred to ED with fast heart rate, shortness of breath and increased lower extremity swelling found to be in normal sinus rhythm and mildly volume overloaded on exam & BNP 400s. #Acute on Chronic Diastolic Heart Failure; mildly volume up on exam, BNP 471 Etiology: likely dietary indiscretion during holiday Workup: --ECG NSR --trop negative X2 --BNP 400s --CXR without edema --echocardiogram 2018: normal systolic function, mild LVH, mild aortic regurg Treatment: --ordered IV lasix yesterday but was only given lasix 40mg PO, will order lasix 40mg IV X1 today --daily weights, strict i/os, low Na diet, goal K>4, Mg>2 #Palpitations --ECG with normal sinus rhythm --telemetry review with normal sinus rhythm --continue home metoprolol --order 14 day event monitor and follow-up as outpatient #CAD s/p PCI; continue home metoprolol, plavix, and amlodipine We will continue to follow
[2018-07-19] MEDS ORDERED: FUROSEMIDE 40 MG/4 ML INJECTABLE VIAL IVPUSH ONE (11:23)
--- NOTE | 2018-07-19 17:04 | DS ---
Physical Examination Vital Signs: Vital Signs Temperature 98.1 F 07/19/18 14:00 Pulse Rate 75 07/19/18 14:00 Respiratory Rate 18 07/19/18 10:00 Blood Pressure 110/57 L 07/19/18 14:00 O2 Sat by Pulse Oximetry (%) 94 L 07/19/18 09:00 Constitutional: Yes: No Distress, Anxious Eyes: Yes: Conjunctiva Clear Cardiovascular: Yes: Regular Rate and Rhythm Respiratory: Yes: Regular Gastrointestinal: Yes: Normal Bowel Sounds, Soft, Abdomen, Obese Musculoskeletal: Yes: Joint Stiffness Edema: No Integumentary: Yes: WNL Neurological: Yes: WNL, Alert ...Motor Strength: WNL Psychiatric: Yes: WNL Labs: CBC, BMP 07/17/18 16:00 07/17/18 16:00 Discharge Summary Reason For Visit: SHORTNESS OF BREATH/PREMATURE ATRIAL CON Current Active Problems Hypertensive heart and chronic kidney disease stage 2 (Acute) PAC (premature atrial contraction) (Acute) Shortness of breath on exertion (Acute) Tachycardia with heart rate 100-120 beats per minute (Acute) hyperuricemia anxiety & depression OA knees CAD Hospital Course: sent from office when she found found to have aHR alternating from fast to regular (at rest) and c/o fluttering chest sensation for the past week. 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 Her anxiety was heightened. On arrival she was found to have PAC; her enzymes were negative; CXR was negatrive for CHF though BNP was very slightly elevated. Her BP remanied stable. The BB dose was doubled and the TCA was stopped in favor of cymbalta; she was given Lasix by the [facility] to off load some extra volume. She had no further c/ o. She is mobility limited as she needs her walker and her shoes for her to walk properly. Condition: Improved - Instructions Diet, Activity, Other Instructions: stop Amytriptiline take Metoprolol twice a day avoid salty foods check BP daily at home Referrals: Pb Zimmerman MD [Primary Care Provider] - - Home Medications Comprehensive Discharge Medication List: Ambulatory Orders Allopurinol [Zyloprim -] 100 mg PO DAILY 07/17/18 Amlodipine Besylate [Norvasc -] 5 mg PO DAILY 07/17/18 Aspirin Coated [Ecotrin -] 81 mg PO DAILY 07/17/18 Atorvastatin Calcium 40 mg PO HS 07/17/18 Clopidogrel Bisulfate [Plavix -] 75 mg PO DAILY 07/17/18 Divalproex *ER* [Depakote *ER* -] 500 mg PO DAILY 07/17/18 Famotidine [Pepcid -] 20 mg PO DAILY 07/17/18 Duloxetine HCl 40 mg PO DAILY #90 capsule. 07/19/18 Metoprolol Succinate [Toprol XL -] 25 mg PO BID tab.sr.24h 07/19/18
[2018-07-19] MEDS: ALPRAZolam 0.25 MG TABLET PO SCH (21:19)
[2018-07-19] MEDS: ATORVASTATIN CA 20 MG TABLET (FP) PO SCH (21:19)
[2018-07-19 21:52] LABS: URINE APPEARANCE CLEAR; URINE BILIRUBIN NEGATIVE (<2.0 mg/dL); URINE COLOR LTYELLOW; URINE GLUCOSE (UA) 1+ (NEGATIVE); URINE KETONE NEGATIVE (NEGATIVE); URINE LEUK ESTERASE TRACE (NEGATIVE); URINE NITRITE NEGATIVE (NEGATIVE); URINE PROTEIN NEGATIVE (NEGATIVE); URINE UROBILINOGEN NEGATIVE mg/dL (0.2-1.0)
[2018-07-19 21:58] LABS: EPI CELLS RARE /HPF (FEW); URINE MUCUS RARE
[2018-07-20 07:22] LABS: ANION GAP 8 MMOL/L (8-16); BLOOD UREA NITROGEN 25 mg/dL (7-18); CALCIUM 8.4 mg/dL (8.5-10.1); CHLORIDE 106 mmol/L (98-107); CO2 27 mmol/L (21-32); CREATININE 0.8 mg/dL (0.55-1.3); GLUCOSE,RANDOM 92 mg/dL (74-106); POTASSIUM 3.3 mmol/L (3.5-5.1); SODIUM 141 mmol/L (136-145)
[2018-07-20] MEDS ORDERED: POTASSIUM CHLORIDE TABS 20 MEQ TABLET.ER (FP) PO ONE (08:33)
[2018-07-20] MEDS: amLODIPine BESYLATE 5 MG TABLET (FP) PO SCH (10:07)
[2018-07-20] MEDS: CLOPIDOGREL BISULFATE 75 MG TABLET (FP) PO SCH (10:07)
[2018-07-20] MEDS: metoPROLOL SUCCINATE 25 MG TAB.SR.24H (FP) PO SCH (10:07)
[2018-07-20] MEDS: DULoxetine HCL 20 MG CAPSULE.DR (FP) PO SCH (10:07)
[2018-07-20] MEDS: ENOXAPARIN NA (PORCINE) 40 MG/0.4 ML DISP.SYRIN SQ SCH (10:07)
[2018-07-20] MEDS: ALLOPURINOL 100 MG TABLET (FP) PO SCH (10:07)
--- NOTE | 2018-07-20 11:11 | PN ---
Progress Note, Physician Chief Complaint: Events noted Not in distress Coverage for Dr. Wyatt History of Present Illness: Patient was seen and examined. Awake and alert. Chart was reviewed Denies chest pain or SOB - Current Medication List Current Medications: Active Medications Allopurinol (Zyloprim -) 100 mg PO DAILY [facility] Last Admin: 07/20/18 10:07 Dose: 100 mg Alprazolam (Xanax -) 0.25 mg PO HS [facility] Last Admin: 07/19/18 21:19 Dose: 0.25 mg Amlodipine Besylate (Norvasc -) 5 mg PO DAILY [facility] Last Admin: 07/20/18 10:07 Dose: 5 mg Atorvastatin Calcium (Lipitor -) 20 mg PO HS [facility] Last Admin: 07/19/18 21:19 Dose: 20 mg Clopidogrel Bisulfate (Plavix -) 75 mg PO DAILY [facility] Last Admin: 07/20/18 10:07 Dose: 75 mg Duloxetine HCl (Cymbalta -) 40 mg PO DAILY [facility] Last Admin: 07/20/18 10:07 Dose: 40 mg Enoxaparin Sodium (Lovenox -) 40 mg SQ DAILY [facility] Last Admin: 07/20/18 10:07 Dose: 40 mg Metoprolol Succinate (Toprol Xl -) 25 mg PO BID [facility] Last Admin: 07/20/18 10:07 Dose: 25 mg - Objective Vital Signs: Vital Signs Temperature 97.9 F 07/20/18 05:48 Pulse Rate 70 07/20/18 05:48 Respiratory Rate 18 07/20/18 05:48 Blood Pressure 136/82 07/20/18 05:48 O2 Sat by Pulse Oximetry (%) 94 L 07/19/18 20:34 Eyes: Yes: PERRL HENT: Yes: Atraumatic Neck: Yes: Supple Cardiovascular: Yes: Regular Rate and Rhythm, S1, S2 Respiratory: Yes: CTA Bilaterally Gastrointestinal: Yes: Normal Bowel Sounds, Soft. No: Tenderness Edema: No Labs: CBC, BMP 07/17/18 16:00 07/20/18 05:30 Problem List - Problems (1) Arteriosclerotic heart disease (ASHD) Code(s): I25.10 - ATHSCL HEART DISEASE OF [place] CORONARY ARTERY W/O ANG PCTRS (2) Hyperlipidemia Code(s): E78.5 - HYPERLIPIDEMIA, UNSPECIFIED Qualifiers: Hyperlipidemia type: unspecified Qualified Code(s): E78.5 - Hyperlipidemia , unspecified (3) Hypertension Code(s): I10 - ESSENTIAL (PRIMARY) HYPERTENSION Qualifiers: Hypertension type: essential hypertension Qualified Code(s): I10 - Essential (primary) hypertension (4) Prerenal renal failure Code(s): N19 - UNSPECIFIED KIDNEY FAILURE Assessment/Plan 1. HTN 2. Hypercholesterolemia 3. CAD s/p PCI/TIMO, angina pectoris 4. Acute on chronic diastolic failure currently compensated/euvolemic PLAN: 1. Continue current medical therapy including Toprol and Amlodipine 2. Continue Statin 3. Continue Plavix 4. Discharge planning today Patient was instructed to follow up with Dr. Wyatt as outpatient Dillan Lozoya MD
--- NOTE | 2018-07-20 12:13 | HOL ---
Hook-up date: 2018-07-18 10:10:00 Duration: 23:34:00 Test Indications: SVT Medications: 557240 QRS complexes 7 Ventricular ectopics which represent <1 % of total QRS comp. 35 Supraventricular ectopics which represent <1 % of total QRS comp. * Paced QRS complexs which represent % of total QRS comp. 3 % of Time Classified as Noise VENTRICULAR ECTOPY 7 Isolated 0 Bigeminal Cycles 0 Couplets 0 Runs 0 Beats in Runs * Beats LONGEST at * BPM at :: -- * Beats FASTEST at * BPM at :: -- SUPRAVENTRICULAR ECTOPY 0 Isolated 0 Couplets 6 Runs 35 Beats in Runs 15 Beats LONGEST at 123 BPM at 14:05:39 2018-07-18 3 Beats FASTEST at 140 BPM at 14:08:18 2018-07-18 HEART RATES 55 MIN at 07:28:13 2018-07-19 77 AVG 135 MAX at 08:18:31 2018-07-19 LONGEST RR 1.312 secs at 01:11:07 2018-07-19 1. BASELINE RHYTHM APPEARS TO BE SINUS WITH AVERAGE HR OF 77 BPM. RATES VARIED FROM 55 BPM TO 135 BPM 2. RARE PVCS 3. OCCASIONAL ATRIAL ECTOPIES INCLUDING NON-SUSTATINED SVT SUGGESTS ATRIAL TACHYCARDIA, LONGEST [address] NO SIGNIFICANT ST-T WAVE VARIATIONS 5. DIARY WAS NOT SUBMITTED Confirmed by CAROLYN VALADEZ MD ([id number]) on 07/20/2018 12:12:52 PM Referred By: A COMMENTUCCI Overread By: CAROLYN VALADEZ MD
[2018-07-20 14:19] VITALS: BP 111/80; PULSE 88; TEMP 97.8
== END 2018-07-20 11:42 | disposition home or self-care (01) ==
LOC: JER 15:29 → JERBED 19:36 → J4W 07-18 21:05
PROVIDERS: ADMIT Internal Medicine; ATTEND Internal Medicine
PROC: 3E033GC Introduction of Other Therapeutic Substance into Peripheral Vein, Percutaneous Approach (ICD-10-PCS; principal; 2018-07-17)
PROC: 3E013GC Introduction of Other Therapeutic Substance into Subcutaneous Tissue, Percutaneous Approach (ICD-10-PCS; 2018-07-17)
DX: I13.2 Hypertensive heart and chronic kidney disease with heart failure and with stage 5 chronic kidney disease, or end stage renal disease (principal); I49.1 Atrial premature depolarization; N18.2 Chronic kidney disease, stage 2 (mild); R00.0 Tachycardia, unspecified; R06.09 Other forms of dyspnea; I50.33 Acute on chronic diastolic (congestive) heart failure; I11.0 Hypertensive heart disease with heart failure; R00.2 Palpitations; I25.10 Atherosclerotic heart disease of native coronary artery without angina pectoris; E78.5 Hyperlipidemia, unspecified; G40.909 Epilepsy, unspecified, not intractable, without status epilepticus; Z79.82 Long term (current) use of aspirin; Z88.0 Allergy status to penicillin; Z88.6 Allergy status to analgesic agent; Z95.5 Presence of coronary angioplasty implant and graft; R42 Dizziness and giddiness; Z79.02 Long term (current) use of antithrombotics/antiplatelets; E79.0 Hyperuricemia without signs of inflammatory arthritis and tophaceous disease; M15.9 Polyosteoarthritis, unspecified; F41.9 Anxiety disorder, unspecified; F32.9 Major depressive disorder, single episode, unspecified
CPT/HCPCS: 36415; 71045-TC-FY; 80048; 80053; 80061; 80164; 81003; 81015; 82550; 83721; 83880; 84439; 84443; 84484; 84550; 85027; 85651; 93005; 93010; 93225; 93226; 96372; 96374; 99285-25; G0378

== ENCOUNTER 2019-06-14 12:00 | Inpatient (IN) | payer BC ==
--- NOTE | 2019-06-14 12:14 | PDOC ---
History of Present Illness - General Chief Complaint: Pain Stated Complaint: BACK PAIN Time Seen by Provider: 06/14/19 12:14 History Source: Patient Exam Limitations: No Limitations - History of Present Illness Initial Comments: 88 year old female with PMH HTN, HLD, CAD s/p stent, chronic arthritis, chronic low back pain, anxiety/depression presented to ED for generalized body aches and right sided low back pain x3 days. Pt reported her pain is in her usual locations for her arthritis (left arm, low back), but it is higher in intensity today than usual. She reported she does not usually take any medication for her arthritis. She reported she usually ambulates with a cane, but in the last few days has had to start using a walker. She also reported that she is having difficulty with brushing her teeth and reaching for items above her. Daughter at bedside reported pt has been going in and out of her clothing drawers more often than usual for the last week, because "She is preparing all of her things for when she goes to the other side" and that this was the only increase in activity she can think of. She also reported pt has been depressed over the of her son 2 years ago. Daughter: Connie Bates [phone] ROS General: admitted to generalized weakness. denied fever, chills. HEENT: denied sore throat, rhinorrhea, ear pain. Cardiovascular: denied chest pain, palpitations, syncope, diaphoresis. Respiratory: denied shortness of breath, cough, sputum production, hemoptysis. Gastrointestinal: denied abdominal pain, nausea, vomiting, diarrhea, constipation, blood in stool. Genitourinary: denied dysuria, increased urinary frequency, hematuria, urinary incontinence, flank pain. Back: admitted to back pain. Musculoskeletal: admitted to muscular pain, joint pain. Neurological: denied headache, dizziness, numbness, tingling, weakness. Integumentary: denied rash, laceration, abrasion. Hematologic/Lymphatic: denied bruising or bleeding. PE Constitutional: Well-nourished, Well-developed, appearing stated age. HEENT: head is normocephalic, atraumatic. EOMI. PERRLA. Neck: supple. Full ROM. no midline c-spine tenderness to palpation. no step offs. no paraspinal tenderness to palpation. Cardiovascular: regular heart rhythm. no murmurs. no pericardial friction rub. Respiratory: clear to auscultation bilaterally. no crackles, rhonchi or wheezing. no stridor. Gastrointestinal: soft, nontender. normal bowel sounds. no rebound, guarding, masses. Back: no midline T-spine or L-spine tenderness to palpation. No step offs. no rash to back. Pelvis: lower extremities equal in length without external rotation. No hip tenderness to palpation. Extremities: peripheral pulses intact. no lower extremity edema. Neurological: alert. oriented x3. CN2-12 intact. 5/5 strength all extremities. normal ankle plantar flexion. full sensation all extremities and bilateral face. romberg negative. no ataxia. Psych: awake, alert, oriented x3. follows commands. answers questions appropriately. Past History - Past Medical History Allergies/Adverse Reactions: Allergies Allergy/AdvReac Type Severity Reaction Status Date / Time acetaminophen Allergy Verified 06/14/19 12:05 [From Tylenol-Codeine] aspirin Allergy Verified 06/14/19 12:05 codeine phosphate Allergy Verified 06/14/19 12:05 [From Tylenol-Codeine] Penicillins Allergy Verified 06/14/19 12:05 Home Medications: Ambulatory Orders Allopurinol [Zyloprim -] 100 mg PO DAILY 06/14/19 Amlodipine Besylate [Norvasc -] 5 mg PO DAILY 06/14/19 Aspirin 81 mg PO DAILY 06/14/19 Atorvastatin Ca [Lipitor] 40 mg PO HS 06/14/19 Buspirone HCl [Buspar -] 10 mg PO DAILY 06/14/19 Ca/D3/Mag/Zinc/Mo/Blaine/Mgbor [Caltrate 600-D3-Min Chew Tab] 1 each PO DAILY Clopidogrel Bisulfate [Clopidogrel] 75 mg PO DAILY 06/14/19 Divalproex [Depakote -] 500 mg PO DAILY 06/14/19 Duloxetine HCl 40 mg PO DAILY 06/14/19 Famotidine 20 mg PO DAILY 06/14/19 Gabapentin 100 mg PO DAILY 06/14/19 Glucosamine/Methylsulfonylmeth [Glucosamine-MSM Caplet] 1 each PO DAILY Metoprolol Succinate [Toprol Xl] 25 mg PO BID 06/14/19 Mv-Mins/Folic Acid/Guarana/Caf [One Daily Tablet] 1 each PO DAILY 06/14/19 Cardiac Disorders: Yes (STENT 2016) COPD: No HTN: Yes Hypercholesterolemia: Yes Seizures: Yes - Surgical History Cardiac Surgery: Yes (angioplasty) Orthopedic Surgery: Yes (HERNIATED DISC) - Immunization History Immunization Up to Date: Yes - Psycho Social/Smoking Cessation Hx Smoking History: Never smoked Have you smoked in the past 12 months: No Number of Cigarettes Smoked Daily: 0 Hx Alcohol Use: No Drug/Substance Use Hx: No Substance Use Type: None Hx Substance Use Treatment: No *Physical Exam - Vital Signs Last Vital Signs Temp Pulse Resp BP Pulse Ox 98 F 76 18 151/55 L 98 06/14/19 12:01 06/14/19 12:01 06/14/19 12:01 06/14/19 12:01 06/14/19 12:01 ED Treatment Course - LABORATORY CBC & Chemistry Diagram: 06/14/19 13:10 06/14/19 13:10 Medical Decision Making - Medical Decision Making 88 year old female with above PMH presented to ED for generalized body aches, bilateral arm pain and right sided low back pain. Initial Vital Signs Temp Pulse Resp BP Pulse Ox 98 F 76 18 151/55 L 98 06/14/19 12:01 06/14/19 12:01 06/14/19 12:01 06/14/19 12:01 06/14/19 12:01 Afebrile. No tachycardia. No tachypnea. Hypertensive. No hypoxia on room air. Labs ordered: CBC, CMP, mag, CK, troponin, influenza Medications ordered: normal saline bolus 1000 cc once, tylenol IV Imaging ordered: CXR EKG performed at 1305: rate 64, regular rhythm, normal axis, normal intervals, no acute ST changes. CXR report: Name: [facility] DEPARTMENT OF RADIOLOGY Phys: Eli Lyle RESIDENT : [id number] Age: 88 Sex: F [facility] Acct: [id number] Loc: [address] Exam Date: 06/14/19 Status: PRE ER [place] [id number] Unit Number: [id number] EXAM#: TYPE/EXAM: RESULT: [id number] RAD/CHEST X-RAY PORTABLE* Chest: Pain. A single AP view of the chest is submitted. Since the prior study of 07/18/2018 there is some new platelike atelectasis at the right base. There is a large heart, unfolded aorta, slight tracheal deviation to the right from a prominent knob but no sign of infiltrate or failure. The angles are sharp and the soft tissues are intact. There is an elevated right hemidiaphragm. Correlation recommended. Reported By: Jason Sun MD 06/14/19 1343 06/14/19 14:28 Laboratory Last Values WBC 5.6 K/mm3 (4.0-10.0) 06/14/19 13:10 RBC 4.04 M/mm3 (3.60-5.2) 06/14/19 13:10 Hgb 12.7 GM/dL (10.7-15.3) 06/14/19 13:10 Hct 37.9 % (32.4-45.2) 06/14/19 13:10 MCV 93.9 fl (80-96) 06/14/19 13:10 MCH 31.5 pg (25.7-33.7) 06/14/19 13:10 MCHC 33.5 g/dl (32.0-36.0) 06/14/19 13:10 RDW 14.4 % (11.6-15.6) 06/14/19 13:10 Plt Count 197 K/MM3 (134-434) 06/14/19 13:10 MPV 7.8 fl (7.5-11.1) 06/14/19 13:10 Absolute Neuts (auto) 4.2 K/mm3 (1.5-8.0) 06/14/19 13:10 Neutrophils % 75.4 % (42.8-82.8) 06/14/19 13:10 Lymphocytes % 15.2 % (8-40) 06/14/19 13:10 Monocytes % 8.3 % (3.8-10.2) 06/14/19 13:10 Eosinophils % 0.8 % (0-4.5) 06/14/19 13:10 Basophils % 0.3 % (0-2.0) 06/14/19 13:10 Nucleated RBC % 0 % (0-0) 06/14/19 13:10 Sodium 142 mmol/L (136-145) 06/14/19 13:10 Potassium 3.8 mmol/L (3.5-5.1) 06/14/19 13:10 Chloride 108 mmol/L (98-107) H 06/14/19 13:10 Carbon Dioxide 29 mmol/L (21-32) 06/14/19 13:10 Anion Gap 5 MMOL/L (8-16) L 06/14/19 13:10 BUN 27.8 mg/dL (7-18) H 06/14/19 13:10 Creatinine 0.9 mg/dL (0.55-1.3) 06/14/19 13:10 Est GFR (CKD-EPI)AfAm 66.16 06/14/19 13:10 Est GFR (CKD-EPI)NonAf 57.09 06/14/19 13:10 Random Glucose 134 mg/dL (74-106) H 06/14/19 13:10 Calcium 9.2 mg/dL (8.5-10.1) 06/14/19 13:10 Magnesium 2.0 mg/dL (1.8-2.4) 06/14/19 13:10 Total Bilirubin 0.4 mg/dL (0.2-1) 06/14/19 13:10 AST 17 U/L (15-37) 06/14/19 13:10 ALT 19 U/L (13-61) 06/14/19 13:10 Alkaline Phosphatase 65 U/L (45-117) 06/14/19 13:10 Creatine Kinase 43 U/L (26-192) 06/14/19 13:10 Troponin I < 0.02 ng/ml (0.00-0.05) 06/14/19 13:10 Total Protein 6.9 g/dl (6.4-8.2) 06/14/19 13:10 Albumin 3.6 g/dl (3.4-5.0) 06/14/19 13:10 Urine Color Dk yellow 06/14/19 13:44 Urine Appearance Clear 06/14/19 13:44 Urine pH 6.0 (5.0-8.0) 06/14/19 13:44 Ur Specific [place] 1.023 (1.010-1.035) 06/14/19 13:44 Urine Protein 1+ (NEGATIVE) H 06/14/19 13:44 Urine Glucose (UA) Negative (NEGATIVE) 06/14/19 13:44 Urine Ketones Trace (NEGATIVE) H 06/14/19 13:44 Urine Blood Negative (NEGATIVE) 06/14/19 13:44 Urine Nitrite Negative (NEGATIVE) 06/14/19 13:44 Urine Bilirubin Negative (NEGATIVE) 06/14/19 13:44 Urine Urobilinogen 1.0 mg/dL (0.2-1.0) 06/14/19 13:44 Ur Leukocyte Esterase Trace (NEGATIVE) 06/14/19 13:44 Urine WBC (Auto) 3 /hpf (0-5) 06/14/19 13:44 Urine RBC (Auto) 4 /hpf (0-4) 06/14/19 13:44 Urine Casts (Auto) 10 /lpf (0-8) 06/14/19 13:44 U Epithel Cells (Auto) 2.6 /HPF (0-5/HPF) 06/14/19 13:44 Urine Bacteria (Auto) 5.1 /hpf (NEGATIVE) 06/14/19 13:44 Influenza A (Rapid) Negative (Negative) 06/14/19 13:10 Influenza B (Rapid) Negative (Negative) 06/14/19 13:10 No leukocytosis. No anemia. No electrolyte abnormalities. No elevated CK. Troponin undetectable. Negative UTI. Negative flu. 06/14/19 14:40 Pt and daughter informed of results. Pt reported she does not feel safe going home, 2/2 bilateral leg weakness and potential falls. She reported she lives with the daughter, but is home alone during the day when she is at work. Will consult physical therapy. 06/14/19 15:36 Pt evaluated pt in the ED, recommended inpatient rehab as pt is not safe to go home and cannot perform ADLs. Pt to be admitted for inability to ambulate. 06/14/19 16:[address] Perez, he agreed with plan for care, reported he will come to evaluate. Discharge - Discharge Information Problems reviewed: Yes Clinical Impression/Diagnosis: Unable to ambulate Condition: Stable - Admission Yes - Follow up/Referral - Patient Discharge Instructions - Post Discharge Activity
[2019-06-14] MEDS ORDERED: ACETAMINOPHEN 1000 MG/100 ML VIAL (NON FORMULARY) IVPB ONE (12:43)
[2019-06-14] MEDS ORDERED: SODIUM CHLORIDE 1,000 ML IV STA (12:43)
[2019-06-14] MEDS ORDERED: ACETAMINOPHEN INJECTION 100 ML IVPB ONE (13:07)
[2019-06-14 13:28] LABS: BASO % 0.3 % (0-2.0); EOS % 0.8 % (0-4.5); HEMATOCRIT 37.9 % (32.4-45.2); HEMOGLOBIN 12.7 GM/dL (10.7-15.3); LYMPH % 15.2 % (8-40); MCH 31.5 pg (25.7-33.7); MCHC 33.5 g/dl (32.0-36.0); MEAN CELL VOLUME 93.9 fl (80-96); MEAN PLT VOLUME 7.8 fl (7.5-11.1); MONO % 8.3 % (3.8-10.2); NEUT % 75.4 % (42.8-82.8); PLATELET COUNT 197 K/MM3 (134-434); RBC 4.04 M/mm3 (3.60-5.2); RDW 14.4 % (11.6-15.6); WHITE BLOOD COUNT 5.6 K/mm3 (4.0-10.0)
[2019-06-14 14:06] LABS: EPI CELLS 2.6 /HPF (0-5/HPF); HYALINE CASTS 10 /lpf (0-8); URINE APPEARANCE CLEAR; URINE BACTERIA 5.1 /hpf (NEGATIVE); URINE BILIRUBIN NEGATIVE (NEGATIVE); URINE COLOR DK YELLOW; URINE GLUCOSE (UA) NEGATIVE (NEGATIVE); URINE KETONE TRACE (NEGATIVE); URINE LEUK ESTERASE TRACE (NEGATIVE); URINE NITRITE NEGATIVE (NEGATIVE); URINE PROTEIN 1+ (NEGATIVE); URINE RBC 4 /hpf (0-4); URINE WBC 3 /hpf (0-5)
[2019-06-14 14:22] LABS: ALBUMIN 3.6 g/dl (3.4-5.0); ALK PHOS 65 U/L (45-117); ANION GAP 5 MMOL/L (8-16); BILIRUBIN,TOTAL 0.4 mg/dL (0.2-1); BLOOD UREA NITROGEN 27.8 mg/dL (7-18); CALCIUM 9.2 mg/dL (8.5-10.1); CHLORIDE 108 mmol/L (98-107); CO2 29 mmol/L (21-32); CREATININE 0.9 mg/dL (0.55-1.3); GLUCOSE,RANDOM 134 mg/dL (74-106); POTASSIUM 3.8 mmol/L (3.5-5.1); SGOT/AST 17 U/L (15-37); SGPT/ALT 19 U/L (13-61); SODIUM 142 mmol/L (136-145); TOT PROT 6.9 g/dl (6.4-8.2)
--- NOTE | 2019-06-14 15:39 | PDOC ---
Documentation entered by Iris Hunter SCRIBE, acting as scribe for Rich Jamil MD. Rich Jamil MD: This documentation has been prepared by the Elsa sears Nirvannie, SCRIBE, under my direction and personally reviewed by me in its entirety. I confirm that the documentation accurately reflects all work, treatment, procedures, and medical decision making performed by me. Attending Attestation - Resident Resident Name: DarielaEli - ED Attending Attestation I have performed the following: I have examined & evaluated the patient, The case was reviewed & discussed with the resident, I agree w/resident's findings & plan, Exceptions are as noted - HPI HPI: 06/14/19 13:12 The patient is an 88 year old female, with a significant past medical history of HTN, HLD, CAD (s/p cardiac stenting, 2016), chronic arthritis, chronic low back pain, anxiety/depression, who presents to the emergency department with 3 days of generalized malaise with associated right-sided lower back pain. As per patient she has chronic arthritic pain but she feels the pain has progressed to the point where she feels like will fall when at home. The patient notes she has been using a walker to ambulate instead of a cane to prevent falls for the last 3 days. She also endorses difficulty performing daily activities secondary to generalized body pain. Patient normally does not take any medications for her arthritic pains. Pt's daughter, with whom she lives, reports the patient has been depressed since the of her son Aug 2017. Pt's daughter also reports that the pt has had increasing anxiety being at home alone when pt is at work. Pt was started on buspar which has helped. Pt does not have a BRUSH POLISHER. The pt denies any SI/HI, AH/VH. She denies any recent trauma, falls, or urinary/bowel incontinence. She denies recent fevers, chills, headache or dizziness. She denies focal weakness/ numbness. She denies recent nausea, vomiting, diarrhea or constipation. She denies recent dysuria, frequency, urgency or hematuria. She denies recent chest pain or shortness of breath. Allergies: acetaminophen, aspirin, codeine, phosphate, Penicillins Past surgical history: None reported. Social history: Nonsmoker. Denies EtOH use and recreational drug use. Primary Care Physician: Dr. Barreto Tele[employer] Analyst: Dr. Wyatt - Physicial Exam PE: 06/14/19 15:36 GENERAL: Awake, alert, and fully oriented, in no acute distress HEAD: No signs of trauma EYES: PERRLA, EOMI, sclera anicteric, conjunctiva clear ENT: Auricles normal inspection, hearing grossly normal, nares patent, oropharynx clear without exudates. Moist mucosa NECK: Normal ROM, supple, no lymphadenopathy, JVD, or masses BACK: No midline cervical, thoracic, lumbar ttp, +R paraspinal lumbar ttp LUNGS: Breath sounds equal, clear to auscultation bilaterally. No wheezes, and no crackles HEART: Regular rate and rhythm, normal S1 and S2, no murmurs, rubs or gallops ABDOMEN: Soft, nontender, normoactive bowel sounds. No guarding, no rebound. No masses EXTREMITIES: Normal range of motion, no edema. No clubbing or cyanosis. No cords, erythema, or tenderness NEUROLOGICAL: Normal speech, cranial nerves intact, 4/5 strength in all 4 extremities, normal sensation to light touch in all 4 extremities, normal cerebellar exam, antalgic gait with walker, can take a few steps with assistance SKIN: Warm, Dry, normal turgor, no rashes or lesions noted. - Medical Decision Making 06/14/19 15:37 88yo F presents to the ED with chronic arthritic pain and concerns she will fall with ambulation Pt alone at home while daughter at work, also reports she has 42 steps she must navigate to get in or out Pt and daughter request rehab placement Labs, UA unremarkable Case management evaluated pt, will put in referral for home care Pt evaluated by PT in the emergency department, recommends placement in rehab as pt is not safe to navigate stairs Plan to admit
--- NOTE | 2019-06-14 18:23 | HP ---
Admitting History and Physical - Primary Care Physician PCP: Pb Zimmerman - Admission Chief Complaint: unable to walk History of Present Illness: 88 year old home bound female (with PMH HTN, HLD, CAD s/p stent, chronic arthritis, anxiety/depression presented to ED for generalized body aches and right sided low back pain x3 days that has made it very difficult for her to stand and even walk as she usually does. She has had to rely on use of a walker to move about within her house but does so unsteadily. Pt reported her pain is mostly in the lower back and radiates into the back of both thighs, which has been new as in the past, her LBP was usually localized and short lived.She reported she does not usually take any medication for her arthritis. She also has been having bilat upper arm aches which is not typical. She is having difficulty with brushing her teeth and reaching for items above her. For unclear reasons, the Daughter reported pt has been doing more bending, going in and out of her clothing drawers more often than usual for the last week, and that this was the only increase in activity she can think of. She also reported pt has been more depressed during the "holiday period".She denies any falls, accidents, CP, dizziness. No diarrhea, rashes, but c/o frontal headaches, some dry skin and sometimes itchy eyes but no visual loss History Source: Patient, Family Member Limitations to Obtaining History: No Limitations - Past Medical History LIGHT BULB REPLACER: Yes: Seizure Cardiovascular: Yes: CAD (s/p PCI 02/2016 [facility]), CHF, HTN, Hyperlipdemia Gastrointestinal: Yes: Constipation, Diverticulosis, GERD Renal/: Yes: Renal Inusuff ...: No Psych: Yes: Anxiety, Depression Musculoskeletal: Yes: Osteoarthritis Endocrine: Yes: Osteopenia, Other - Past Surgical History Past Surgical History: Yes: Hernia Repair (spine surgery for disc hernaition Lipoma excized cataracts), Laminectomy, Stent - Smoking History Smoking history: Never smoked Have you smoked in the past 12 months: No Aproximately how many cigarettes per day: 0 - Alcohol/Substance Use Hx Alcohol Use: No History of Substance Use: reports: None - Social History Usual Living Arrangement: Yes: With Child ADL: Family Assistance History of Recent Travel: No Home Medications - Allergies Allergies/Adverse Reactions: Allergies Allergy/AdvReac Type Severity Reaction Status Date / Time acetaminophen Allergy Verified 06/14/19 12:05 [From Tylenol-Codeine] aspirin Allergy Verified 06/14/19 12:05 codeine phosphate Allergy Verified 06/14/19 12:05 [From Tylenol-Codeine] Penicillins Allergy Verified 06/14/19 12:05 - Home Medications Home Medications: Ambulatory Orders Allopurinol [Zyloprim -] 100 mg PO DAILY 06/14/19 Amlodipine Besylate [Norvasc -] 5 mg PO DAILY 06/14/19 Aspirin 81 mg PO DAILY 06/14/19 Atorvastatin Ca [Lipitor] 40 mg PO HS 06/14/19 Buspirone HCl [Buspar -] 10 mg PO DAILY 06/14/19 Ca/D3/Mag/Zinc/Mo/Blaine/Mgbor [Caltrate 600-D3-Min Chew Tab] 1 each PO DAILY Clopidogrel Bisulfate [Clopidogrel] 75 mg PO DAILY 06/14/19 Divalproex [Depakote -] 500 mg PO DAILY 06/14/19 Duloxetine HCl 40 mg PO DAILY 06/14/19 Famotidine 20 mg PO DAILY 06/14/19 Gabapentin 100 mg PO DAILY 06/14/19 Glucosamine/Methylsulfonylmeth [Glucosamine-MSM Caplet] 1 each PO DAILY Metoprolol Succinate [Toprol Xl] 25 mg PO BID 06/14/19 Mv-Mins/Folic Acid/Guarana/Caf [One Daily Tablet] 1 each PO DAILY 06/14/19 Family Medical History Family Hx Cardiac Disorders: Son (sudden cardiac ) Review of Systems - Review of Systems Constitutional: reports: Weakness Eyes: reports: Other (eye redness) HENT: reports: No Symptoms Neck: reports: No Symptoms Cardiovascular: reports: No Symptoms Respiratory: reports: No Symptoms Gastrointestinal: reports: No Symptoms Genitourinary: reports: No Symptoms Breasts: reports: No Symptoms Reported Musculoskeletal: reports: Muscle Pain, Muscle Weakness Integumentary: reports: Pruritis Neurological: reports: Headache (bilateral & frontal) Endocrine: reports: No Symptoms Hematology/Lymphatic: reports: No Symptoms Psychiatric: reports: Anxiety, Depression Physical Examination Vital Signs: Vital Signs Temperature 98 F 06/14/19 12:01 Pulse Rate 76 06/14/19 12:01 Respiratory Rate 18 06/14/19 12:01 Blood Pressure 151/55 L 06/14/19 12:01 O2 Sat by Pulse Oximetry (%) 98 06/14/19 12:01 Constitutional: Yes: Well Nourished, Anxious Eyes: Yes: Other (conj injected on the Rt eye; trace injected on the Lt) Neck: Yes: Supple, Decreased ROM Cardiovascular: Yes: Regular Rate and Rhythm Respiratory: Yes: CTA Bilaterally Gastrointestinal: Yes: Normal Bowel Sounds, Soft, Abdomen, Obese ...Rectal Exam: Yes: Deferred Renal/: Yes: WNL Breast(s): Yes: Other (exam done in office) Musculoskeletal: Yes: Muscle Pain (in the lumbar area) Extremities: Yes: WNL Edema: No Peripheral Pulses WNL: Yes Peripheral Pulses: Left Doralis Pedis: 1+, Right Dorsalis Pedis: 1+ Integumentary: Yes: WNL Neurological: Yes: Alert, Oriented, Unsteady Gait, Weakness (no laterilized deficit) ...Motor Strength: WNL Psychiatric: Yes: Other (tense) Labs: CBC, BMP 06/14/19 13:10 06/14/19 13:10 CBCD WBC 5.6 K/mm3 (4.0-10.0) 06/14/19 13:10 RBC 4.04 M/mm3 (3.60-5.2) 06/14/19 13:10 Hgb 12.7 GM/dL (10.7-15.3) 06/14/19 13:10 Hct 37.9 % (32.4-45.2) 06/14/19 13:10 MCV 93.9 fl (80-96) 06/14/19 13:10 MCHC 33.5 g/dl (32.0-36.0) 06/14/19 13:10 RDW 14.4 % (11.6-15.6) 06/14/19 13:10 Plt Count 197 K/MM3 (134-434) 06/14/19 13:10 MPV 7.8 fl (7.5-11.1) 06/14/19 13:10 CMP Sodium 142 mmol/L (136-145) 06/14/19 13:10 Potassium 3.8 mmol/L (3.5-5.1) 06/14/19 13:10 Chloride 108 mmol/L (98-107) H 06/14/19 13:10 Carbon Dioxide 29 mmol/L (21-32) 06/14/19 13:10 Anion Gap 5 MMOL/L (8-16) L 06/14/19 13:10 BUN 27.8 mg/dL (7-18) H 06/14/19 13:10 Creatinine 0.9 mg/dL (0.55-1.3) 06/14/19 13:10 Random Glucose 134 mg/dL (74-106) H 06/14/19 13:10 Calcium 9.2 mg/dL (8.5-10.1) 06/14/19 13:10 Total Bilirubin 0.4 mg/dL (0.2-1) 06/14/19 13:10 AST 17 U/L (15-37) 06/14/19 13:10 ALT 19 U/L (13-61) 06/14/19 13:10 Alkaline Phosphatase 65 U/L (45-117) 06/14/19 13:10 Total Protein 6.9 g/dl (6.4-8.2) 06/14/19 13:10 Albumin 3.6 g/dl (3.4-5.0) 06/14/19 13:10 CARDIAC ENZYMES Creatine Kinase 43 U/L (26-192) 06/14/19 13:10 Troponin I < 0.02 ng/ml (0.00-0.05) 06/14/19 13:10 Urine Test Results Urine Color Dk yellow 06/14/19 13:44 Urine Appearance Clear 06/14/19 13:44 Urine pH 6.0 (5.0-8.0) 06/14/19 13:44 Ur Specific [place] 1.023 (1.010-1.035) 06/14/19 13:44 Urine Protein 1+ (NEGATIVE) H 06/14/19 13:44 Urine Glucose (UA) Negative (NEGATIVE) 06/14/19 13:44 Urine Ketones Trace (NEGATIVE) H 06/14/19 13:44 Urine Blood Negative (NEGATIVE) 06/14/19 13:44 Urine Nitrite Negative (NEGATIVE) 06/14/19 13:44 Urine Bilirubin Negative (NEGATIVE) 06/14/19 13:44 Ur Leukocyte Esterase Trace (NEGATIVE) 06/14/19 13:44 Imaging - Results Chest X-ray: Report Reviewed EKG: Report Reviewed Problem List - Problems (1) Unable to ambulate Assessment/Plan: limited by "stiffness" in gait as well as lumbar pains radiating into thighs making it very hard for her to move about (as well as unsafe). She was seen by PT in the ER and was determined to be "unsafe" to ambulate. The cause of this is unclear but could be related to her flexing her lumbar spine thus producing a radiculopathy. 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 PLAN: gentle IVF and recheck the chemistries. Cont current Cardiac meds. Code(s): I13.10 - HYP HRT & CHR KDNY DIS W/O HRT FAIL, W STG 1-4/UNSP CHR KDNY; N18.2 - CHRONIC KIDNEY DISEASE, STAGE 2 (MILD) (3) Hyperuricemia Assessment/Plan: Check the Urate levels Code(s): E79.0 - HYPERURICEMIA W/O SIGNS OF INFLAM ARTHRIT AND TOPHACEOUS DIS (4) Weakness Assessment/Plan: as described, resulting in her reduced mobility, aching. PLAN: will re-hydrate; check Aldolase hold statin; PT and eventual short term rehab Code(s): R53.1 - WEAKNESS (5) Anxiety and depression Assessment/Plan: clinically depressed, ruminating over her son's sudden passing a few yrs ago becoming more amplified during the "holiday" as she misses hs presence. PLAN: cont the SSRI, and may add augmentive Tx Code(s): F41.9 - ANXIETY DISORDER, UNSPECIFIED; F32.9 - MAJOR DEPRESSIVE DISORDER, SINGLE EPISODE, UNSPECIFIED (6) Lipid disorder Assessment/Plan: on statin, but will suspend it given the myalgias Code(s): E78.9 - DISORDER OF LIPOPROTEIN METABOLISM, UNSPECIFIED (7) Home help needed Assessment/Plan: No house ,ember able to render care during usual "Works hours" that her live in daughter abides by. In her present state, she presents a danger of injury to self as she would be a high fall risk. Code(s): Z74.2 - NEED FOR ASSIST AT HOME & NO HOUSE MEMB ABLE TO RENDER CARE (8) Dehydration, mild Assessment/Plan: as noted by high BUN, as she probably has not been drinking enough fluids during this period of distress. No report of fever or diarrhea, n-v. Code(s): E86.0 - DEHYDRATION (9) Degenerative spinal arthritis Assessment/Plan: multilevel dz; will check CT of LSS Code(s): M47.819 - SPONDYLOSIS WITHOUT MYELOPATHY OR RADICULOPATHY, SITE UNSP (10) Conjunctiva disorder Assessment/Plan: Rt > Lt; possible conjunctivitis will Rx eye Gtts Code(s): H11.9 - UNSPECIFIED DISORDER OF CONJUNCTIVA Assessment/Plan 88 YO F, who presents with generalized weakness likely 2nd multiple factors at play. Mgmt as described above. ~~~~~~~~~~~~~~~~~~~~~~~~~~~~~~~~ Dr Zimmerman ``````````````````````````` Discussed with daughter at bedside.
[2019-06-14] MEDS ORDERED: BACLOFEN 10 MG TABLET (FP) PO ONE (18:57)
[2019-06-14] MEDS ORDERED: SODIUM CHLORIDE 0.45% 1,000 ML IV SCH (19:15)
[2019-06-14] MEDS ORDERED: BACLOFEN 10 MG TABLET (FP) ONE (20:00)
[2019-06-14] MEDS ORDERED: busPIRone HCL 5 MG TABLET ONE (21:59)
[2019-06-14] MEDS: busPIRone HCL 10 MG TABLET (FP) PO SCH (22:02)
[2019-06-15] MEDS: busPIRone HCL 10 MG TABLET (FP) PO SCH ×3 (07:00→21:43)
[2019-06-15] MEDS ORDERED: busPIRone HCL 5 MG TABLET ONE ×2 (07:02→14:51)
[2019-06-15 09:30] LABS: BLOOD UREA NITROGEN 15.2 mg/dL (7-18); CALCIUM 8.8 mg/dL (8.5-10.1); CREATININE 0.8 mg/dL (0.55-1.3); MAGNESIUM 1.9 mg/dL (1.8-2.4); POTASSIUM 3.4 mmol/L (3.5-5.1); URIC ACID 3.3 mg/dL (2.6-7.2)
[2019-06-15] MEDS ORDERED: DIVALPROEX NA *ER* EXTEND REL 250 MG TABLET.SA PO ONE (10:00)
[2019-06-15] MEDS ORDERED: metoPROLOL SUCCINATE 25 MG TAB.SR.24H (FP) PO SCH (10:00)
[2019-06-15] MEDS: CLOPIDOGREL BISULFATE 75 MG TABLET (FP) PO SCH (10:27)
[2019-06-15] MEDS: amLODIPine BESYLATE 5 MG TABLET (FP) PO SCH (10:27)
[2019-06-15] MEDS: DULoxetine HCL 20 MG CAPSULE.DR PO SCH (10:27)
[2019-06-15] MEDS: ENOXAPARIN NA (PORCINE) 40 MG/0.4 ML DISP.SYRIN SQ SCH (10:28)
[2019-06-15] MEDS: ALLOPURINOL 100 MG TABLET (FP) PO SCH (10:28)
--- NOTE | 2019-06-15 10:36 | EKG ---
Test Reason : Blood Pressure : / mmHG Vent. Rate : 064 BPM Atrial Rate : 064 BPM P-R Int : 152 ms QRS Dur : 088 ms QT Int : 432 ms P-R-T Axes : -05 002 020 degrees QTc Int : 445 ms SINUS RHYTHM WITH PREMATURE ATRIAL COMPLEXES OTHERWISE NORMAL ECG WHEN COMPARED WITH ECG OF 17-JUL-2018 15:41, PREMATURE ATRIAL COMPLEXES ARE NOW PRESENT Confirmed by Dallas Jiménez MD ([id number]) on 06/15/2019 10:36:07 AM Referred By: Confirmed By:Dallas Jiménez MD
[2019-06-15] MEDS: PANTOPRAZOLE 20 MG TABLET (FP) PO SCH (11:00)
[2019-06-15 16:11] VITALS: BMI 33.0
--- NOTE | 2019-06-15 17:22 | PN ---
Progress Note (short form) - Note Progress Note: Current Medications Allopurinol (Zyloprim -) 100 mg PO DAILY [facility] Last Admin: 06/15/19 10:28 Dose: 100 mg Amlodipine Besylate (Norvasc -) 5 mg PO DAILY [facility] Last Admin: 06/15/19 10:27 Dose: 5 mg Buspirone HCl (Buspar -) 10 mg PO TID [facility] Last Admin: 06/15/19 15:00 Dose: 10 mg Clopidogrel Bisulfate (Plavix -) 75 mg PO DAILY [facility] Last Admin: 06/15/19 10:27 Dose: 75 mg Duloxetine HCl (Cymbalta -) 40 mg PO DAILY [facility] Last Admin: 06/15/19 10:27 Dose: 40 mg Enoxaparin Sodium (Lovenox -) 40 mg SQ DAILY [facility] Last Admin: 06/15/19 10:28 Dose: 40 mg Sodium Chloride (1/2 Normal Saline) 1,000 mls @ 42 mls/hr IV ASDIR [facility] Last Admin: 06/14/19 20:12 Dose: 42 mls/hr Metoprolol Succinate (Toprol Xl -) 25 mg PO DAILY [facility] Last Admin: 06/15/19 10:53 Dose: 25 mg Pantoprazole Sodium (Protonix -) 20 mg PO DAILY [facility] Last Admin: 06/15/19 11:00 Dose: 20 mg Laboratory Results - last 24 hr 06/14/19 06/15/19 06/15/19 13:10 08:30 08:30 ESR 12 Sodium 141 Potassium 3.4 L Chloride 106 Carbon Dioxide 28 Anion Gap 7 L BUN 15.2 Creatinine 0.8 Est GFR (CKD-EPI)AfAm 76.29 Est GFR (CKD-EPI)NonAf 65.82 Random Glucose 121 H Hemoglobin A1c % Uric Acid 3.3 Calcium 8.8 Magnesium 1.9 Triglycerides 108 Cholesterol 154 Total LDL Cholesterol 70 HDL Cholesterol 62 H Valproic Acid 36.1 L 06/15/19 08:30 ESR Sodium Potassium Chloride Carbon Dioxide Anion Gap BUN Creatinine Est GFR (CKD-EPI)AfAm Est GFR (CKD-EPI)NonAf Random Glucose Hemoglobin A1c % 5.6 Uric Acid Calcium Magnesium Triglycerides Cholesterol Total LDL Cholesterol HDL Cholesterol Valproic Acid Vital Signs Temperature 98.2 F 06/15/19 15:57 Pulse Rate 85 06/15/19 15:57 Respiratory Rate 20 06/15/19 15:57 Blood Pressure 152/86 06/15/19 15:57 O2 Sat by Pulse Oximetry (%) 93 L 06/15/19 15:57 CC: back pains ``````````````````` skin--no acute lesions neck--no masses lungs--clear heart--RR abd--benign ext--no edema; dege changes neuro--alert; anxious; moves all extreme `````````````````````````````````````` summ > impaired gait/imbalance--likely 2nd degen dz of spine as she is limited by pain. PLAN: PT, pain control, SNF > HTN--SBP elevated; will increase the BB to 50mg total > hyperglycemia--? gluc intolerance; A1 c is WNL > LBP--CT of LSS reveals multi level degen chganges and spinal stenosis; PLAN: Analgesia and PT eval > Anxiety/depression--very unsettled; again pondering los of son; current regimen not entirely effective; will add augmentive agent; it is very unlikely that she has a seizure dz given her chronic use of VPA as the level is notably subtherapeutic. PLAN: will not renew this agent > Lipidemia--Lipids well controlled on statin, but it has been suspended due to c/o soft tissue limb pains; CK okay but Aldolase level pending. 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 Code(s): I13.10 - HYP HRT & CHR KDNY DIS W/O HRT FAIL, W STG 1-4/UNSP CHR KDNY; N18.2 - CHRONIC KIDNEY DISEASE, STAGE 2 (MILD) (3) Hyperuricemia Code(s): E79.0 - HYPERURICEMIA W/O SIGNS OF INFLAM ARTHRIT AND TOPHACEOUS DIS (4) Weakness Code(s): R53.1 - WEAKNESS (5) Anxiety and depression Code(s): F41.9 - ANXIETY DISORDER, UNSPECIFIED; F32.9 - MAJOR DEPRESSIVE DISORDER, SINGLE EPISODE, UNSPECIFIED (6) Lipid disorder Code(s): E78.9 - DISORDER OF LIPOPROTEIN METABOLISM, UNSPECIFIED (7) Home help needed Code(s): Z74.2 - NEED FOR ASSIST AT HOME & NO HOUSE MEMB ABLE TO RENDER CARE (8) Dehydration, mild Code(s): E86.0 - DEHYDRATION (9) Degenerative spinal arthritis Code(s): M47.819 - SPONDYLOSIS WITHOUT MYELOPATHY OR RADICULOPATHY, SITE UNS (10) Conjunctiva disorder Code(s): H11.9 - UNSPECIFIED DISORDER OF CONJUNCTIVA
[2019-06-15] MEDS ORDERED: POTASSIUM CHLORIDE TABS 10 MEQ TABLET.ER (FP) PO ONE (17:34)
[2019-06-15] MEDS: ACETAMINOPHEN 500 MG TABLET (FP) PO SCH (21:43)
[2019-06-15] MEDS: metoPROLOL SUCCINATE 25 MG TAB.SR.24H (FP) PO SCH (21:44)
[2019-06-16] MEDS: busPIRone HCL 10 MG TABLET (FP) PO SCH ×3 (06:22→22:29)
[2019-06-16] MEDS: ENOXAPARIN NA (PORCINE) 40 MG/0.4 ML DISP.SYRIN SQ SCH (09:26)
[2019-06-16] MEDS: CLOPIDOGREL BISULFATE 75 MG TABLET (FP) PO SCH (09:27)
[2019-06-16] MEDS: ARIPiprazole 2 MG TABLET PO SCH (09:27)
[2019-06-16] MEDS: ACETAMINOPHEN 500 MG TABLET (FP) PO SCH ×2 (09:27→22:28)
[2019-06-16] MEDS: amLODIPine BESYLATE 5 MG TABLET (FP) PO SCH (09:27)
[2019-06-16] MEDS: metoPROLOL SUCCINATE 25 MG TAB.SR.24H (FP) PO SCH ×2 (09:27→22:29)
[2019-06-16] MEDS: ALLOPURINOL 100 MG TABLET (FP) PO SCH (09:27)
[2019-06-16] MEDS: PANTOPRAZOLE 20 MG TABLET (FP) PO SCH (09:27)
[2019-06-16 09:28] LABS: BLOOD UREA NITROGEN 19.9 mg/dL (7-18); CALCIUM 8.8 mg/dL (8.5-10.1); CREATININE 0.8 mg/dL (0.55-1.3); POTASSIUM 3.4 mmol/L (3.5-5.1)
[2019-06-16] MEDS: DULoxetine HCL 20 MG CAPSULE.DR PO SCH (09:33)
--- NOTE | 2019-06-16 14:55 | PN ---
Progress Note (short form) - Note Progress Note: Current Medications Acetaminophen (Tylenol -) 1,000 mg PO BID [facility] Last Admin: 06/16/19 09:27 Dose: 1,000 mg Allopurinol (Zyloprim -) 100 mg PO DAILY [facility] Last Admin: 06/16/19 09:27 Dose: 100 mg Amlodipine Besylate (Norvasc -) 5 mg PO DAILY [facility] Last Admin: 06/16/19 09:27 Dose: 5 mg Aripiprazole (Abilify) 2 mg PO DAILY [facility] Last Admin: 06/16/19 09:27 Dose: 2 mg Buspirone HCl (Buspar -) 10 mg PO TID [facility] Last Admin: 06/16/19 14:42 Dose: 10 mg Clopidogrel Bisulfate (Plavix -) 75 mg PO DAILY [facility] Last Admin: 06/16/19 09:27 Dose: 75 mg Cyclobenzaprine HCl (Cyclobenzaprine Hcl) 5 mg PO [facility] Duloxetine HCl (Cymbalta -) 40 mg PO DAILY [facility] Last Admin: 06/16/19 09:33 Dose: 40 mg Enoxaparin Sodium (Lovenox -) 40 mg SQ DAILY [facility] Last Admin: 06/16/19 09:26 Dose: 40 mg Metoprolol Succinate (Toprol Xl -) 25 mg PO BID [facility] Last Admin: 06/16/19 09:27 Dose: 25 mg Pantoprazole Sodium (Protonix -) 20 mg PO DAILY [facility] Last Admin: 06/16/19 09:27 Dose: 20 mg Potassium Chloride (K-Dur -) 20 meq PO DAILY [facility] Laboratory Results - last 24 hr 06/16/19 08:25 Sodium 141 Potassium 3.4 L Chloride 108 H Carbon Dioxide 27 Anion Gap 7 L BUN 19.9 H Creatinine 0.8 Est GFR (CKD-EPI)AfAm 76.29 Est GFR (CKD-EPI)NonAf 65.82 Random Glucose 92 Calcium 8.8 Vital Signs Temperature 98.3 F 06/16/19 10:00 Pulse Rate 76 06/16/19 10:00 Respiratory Rate 20 06/16/19 10:00 Blood Pressure 134/67 06/16/19 10:00 O2 Sat by Pulse Oximetry (%) 94 L 06/16/19 10:00 CC: back pains; worse when turning in bed. Was able to "walk" a bit with PT ``````````````````` lungs--clear heart--RR abd--benign ext--no edema; degen changes; some soft tissue tenderness neuro--alert; coherent; anxious; moves all extreme `````````````````````````````````````` summ > impaired gait/imbalance--likely 2nd degen dz of spine as she is limited by pain. PLAN: undertaking in-house PT, pain control with APAP; will add trial of muscle relaxant at HS; spoke with pillowcase folder regarding short term rehab. > HTN--SBP better when the BB was increased. > Low Potassium--replenish as needed. > LBP--as a cause of her immobility and hampered ambulation; CT of LSS reveals multi level degen changes and spinal stenosis; PLAN: ( see above)Analgesia and PT eval > Anxiety/depression--very unsettled; now added Ablify to Buspar and SSRI and await if it is more helpful than VPA. > Lipidemia--Lipids well controlled on statin, but it has been suspended due to c/o soft tissue limb pains; CK okay but Aldolase level pending. 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 Code(s): I13.10 - HYP HRT & CHR KDNY DIS W/O HRT FAIL, W STG 1-4/UNSP CHR KDNY; N18.2 - CHRONIC KIDNEY DISEASE, STAGE 2 (MILD) (3) Hyperuricemia Code(s): E79.0 - HYPERURICEMIA W/O SIGNS OF INFLAM ARTHRIT AND TOPHACEOUS DIS (4) Weakness Code(s): R53.1 - WEAKNESS (5) Anxiety and depression Code(s): F41.9 - ANXIETY DISORDER, UNSPECIFIED; F32.9 - MAJOR DEPRESSIVE DISORDER, SINGLE EPISODE, UNSPECIFIED (6) Lipid disorder Code(s): E78.9 - DISORDER OF LIPOPROTEIN METABOLISM, UNSPECIFIED (7) Home help needed Code(s): Z74.2 - NEED FOR ASSIST AT HOME & NO HOUSE MEMB ABLE TO RENDER CARE (8) Dehydration, mild Code(s): E86.0 - DEHYDRATION (9) Degenerative spinal arthritis Code(s): M47.819 - SPONDYLOSIS WITHOUT MYELOPATHY OR RADICULOPATHY, SITE UNSP (10) Conjunctiva disorder Code(s): H11.9 - UNSPECIFIED DISORDER OF CONJUNCTIVA
[2019-06-16] MEDS: POTASSIUM CHLORIDE TABS 20 MEQ TABLET.ER (FP) PO SCH (14:58)
[2019-06-16] MEDS: CYCLOBENZAPRINE HCL 5 MG TABLET PO SCH (22:29)
[2019-06-17] MEDS: busPIRone HCL 10 MG TABLET (FP) PO SCH ×3 (06:52→22:24)
[2019-06-17] MEDS ORDERED: PT OWN MED DRAWER 7, Y5N ONE ×3 (10:26→21:50)
[2019-06-17] MEDS: ENOXAPARIN NA (PORCINE) 40 MG/0.4 ML DISP.SYRIN SQ SCH (10:33)
[2019-06-17] MEDS: CLOPIDOGREL BISULFATE 75 MG TABLET (FP) PO SCH (10:33)
[2019-06-17] MEDS: metoPROLOL SUCCINATE 25 MG TAB.SR.24H (FP) PO SCH ×2 (10:33→22:25)
[2019-06-17] MEDS: POTASSIUM CHLORIDE TABS 20 MEQ TABLET.ER (FP) PO SCH (10:33)
[2019-06-17] MEDS: PANTOPRAZOLE 20 MG TABLET (FP) PO SCH (10:34)
[2019-06-17] MEDS: ALLOPURINOL 100 MG TABLET (FP) PO SCH (10:34)
[2019-06-17] MEDS: ACETAMINOPHEN 500 MG TABLET (FP) PO SCH ×2 (10:34→22:25)
[2019-06-17] MEDS: ARIPiprazole 2 MG TABLET PO SCH (10:34)
[2019-06-17] MEDS: amLODIPine BESYLATE 5 MG TABLET (FP) PO SCH (10:34)
[2019-06-17] MEDS: DULoxetine HCL 20 MG CAPSULE.DR PO SCH (10:34)
--- NOTE | 2019-06-17 19:42 | PN ---
Progress Note (short form) - Note Progress Note: Current Medications Acetaminophen (Tylenol -) 1,000 mg PO BID [facility] Last Admin: 06/17/19 10:34 Dose: 1,000 mg Allopurinol (Zyloprim -) 100 mg PO DAILY [facility] Last Admin: 06/17/19 10:34 Dose: 100 mg Amlodipine Besylate (Norvasc -) 5 mg PO DAILY [facility] Last Admin: 06/17/19 10:34 Dose: 5 mg Aripiprazole (Abilify) 2 mg PO DAILY [facility] Last Admin: 06/17/19 10:34 Dose: 2 mg Buspirone HCl (Buspar -) 10 mg PO TID [facility] Last Admin: 06/17/19 14:38 Dose: 10 mg Clopidogrel Bisulfate (Plavix -) 75 mg PO DAILY [facility] Last Admin: 06/17/19 10:33 Dose: 75 mg Cyclobenzaprine HCl (Cyclobenzaprine Hcl) 5 mg PO HS [facility] Last Admin: 06/16/19 22:29 Dose: 5 mg Duloxetine HCl (Cymbalta -) 40 mg PO DAILY [facility] Last Admin: 06/17/19 10:34 Dose: 40 mg Enoxaparin Sodium (Lovenox -) 40 mg SQ DAILY [facility] Last Admin: 06/17/19 10:33 Dose: 40 mg Metoprolol Succinate (Toprol Xl -) 25 mg PO BID [facility] Last Admin: 06/17/19 10:33 Dose: 25 mg Pantoprazole Sodium (Protonix -) 20 mg PO DAILY [facility] Last Admin: 06/17/19 10:34 Dose: 20 mg Potassium Chloride (K-Dur -) 20 meq PO DAILY [facility] Last Admin: 06/17/19 10:33 Dose: 20 meq Laboratory Results - last 24 hr 06/15/19 08:30 Aldolase 3.2 L Vital Signs Temperature 98.0 F 06/17/19 13:41 Pulse Rate 79 06/17/19 13:41 Respiratory Rate 20 06/17/19 13:41 Blood Pressure 143/77 06/17/19 13:41 O2 Sat by Pulse Oximetry (%) 94 L 06/16/19 10:00 CC: back pains; no worse ``````````````````` lungs--clear heart--RR abd--benign ext--no edema; degen changes; some soft tissue tenderness neuro--alert; coherent; anxious; moves all extreme `````````````````````````````````````` summ > impaired gait/imbalance--likely 2nd degen dz of spine as she is limited by pain. PLAN: pain control with APAP; cont muscle relaxant at HS and will need ST rehab. > HTN--SBP better when the BB was increased. > Low Potassium--replenish as needed. chck BMP > LBP--as a cause of her immobility and hampered ambulation; CT of LSS reveals multi level degen changes and spinal stenosis; PLAN: APAP, Flexeril added; yesterday; will now add Gabapentin > Anxiety/depression--added Ablify to Buspar and SSRI and await if it is more helpful than VPA. > Lipidemia--Lipids well controlled on statin, but it has been suspended due to c/o soft tissue limb pains; CK okay as well as the Aldolase; unsure if the statin is a contributor to her pains. 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 Code(s): I13.10 - HYP HRT & CHR KDNY DIS W/O HRT FAIL, W STG 1-4/UNSP CHR KDNY; N18.2 - CHRONIC KIDNEY DISEASE, STAGE 2 (MILD) (3) Hyperuricemia Code(s): E79.0 - HYPERURICEMIA W/O SIGNS OF INFLAM ARTHRIT AND TOPHACEOUS DIS (4) Weakness Code(s): R53.1 - WEAKNESS (5) Anxiety and depression Code(s): F41.9 - ANXIETY DISORDER, UNSPECIFIED; F32.9 - MAJOR DEPRESSIVE DISORDER, SINGLE EPISODE, UNSPECIFIED (6) Lipid disorder Code(s): E78.9 - DISORDER OF LIPOPROTEIN METABOLISM, UNSPECIFIED (7) Home help needed Code(s): Z74.2 - NEED FOR ASSIST AT HOME & NO HOUSE MEMB ABLE TO RENDER CARE (8) Dehydration, mild Code(s): E86.0 - DEHYDRATION (9) Degenerative spinal arthritis Code(s): M47.819 - SPONDYLOSIS WITHOUT MYELOPATHY OR RADICULOPATHY, SITE UNSP (10) Conjunctiva disorder Code(s): H11.9 - UNSPECIFIED DISORDER OF CONJUNCTIVA
[2019-06-17] MEDS: CYCLOBENZAPRINE HCL 5 MG TABLET PO SCH (22:24)
[2019-06-17] MEDS: GABAPENTIN 100 MG CAPSULE (FP) PO SCH (22:25)
[2019-06-18] MEDS: busPIRone HCL 10 MG TABLET (FP) PO SCH ×2 (05:00→13:42)
[2019-06-18 09:41] LABS: BLOOD UREA NITROGEN 19.2 mg/dL (7-18); CALCIUM 8.5 mg/dL (8.5-10.1); CREATININE 0.8 mg/dL (0.55-1.3); POTASSIUM 3.8 mmol/L (3.5-5.1)
[2019-06-18] MEDS: ENOXAPARIN NA (PORCINE) 40 MG/0.4 ML DISP.SYRIN SQ SCH (09:56)
[2019-06-18] MEDS: ARIPiprazole 2 MG TABLET PO SCH (09:57)
[2019-06-18] MEDS: ACETAMINOPHEN 500 MG TABLET (FP) PO SCH ×2 (09:57→22:04)
[2019-06-18] MEDS: GABAPENTIN 100 MG CAPSULE (FP) PO SCH ×2 (09:58→22:03)
[2019-06-18] MEDS: amLODIPine BESYLATE 5 MG TABLET (FP) PO SCH (09:58)
[2019-06-18] MEDS: CLOPIDOGREL BISULFATE 75 MG TABLET (FP) PO SCH (09:58)
[2019-06-18] MEDS: ALLOPURINOL 100 MG TABLET (FP) PO SCH (09:58)
[2019-06-18] MEDS: POTASSIUM CHLORIDE TABS 20 MEQ TABLET.ER (FP) PO SCH (09:58)
[2019-06-18] MEDS: PANTOPRAZOLE 20 MG TABLET (FP) PO SCH (09:58)
[2019-06-18] MEDS: metoPROLOL SUCCINATE 25 MG TAB.SR.24H (FP) PO SCH ×2 (09:59→22:03)
[2019-06-18] MEDS: DULoxetine HCL 20 MG CAPSULE.DR PO SCH (10:43)
[2019-06-18] MEDS ORDERED: PT OWN MED DRAWER 7, Y5N ONE ×3 (13:35→22:07)
--- NOTE | 2019-06-18 14:46 | DS ---
Physical Examination Vital Signs: Vital Signs Temperature 98 F 06/18/19 14:22 Pulse Rate 101 H 06/18/19 14:22 Respiratory Rate 20 06/18/19 14:22 Blood Pressure 121/67 06/18/19 14:22 O2 Sat by Pulse Oximetry (%) 94 L 06/16/19 10:00 Constitutional: Yes: Well Nourished, No Distress, Anxious Eyes: Yes: Conjunctiva Clear Cardiovascular: Yes: Regular Rate and Rhythm Respiratory: Yes: Regular Gastrointestinal: Yes: Soft, Abdomen, Obese Musculoskeletal: Yes: Back Pain Edema: No Integumentary: Yes: WNL Neurological: Yes: Alert, Oriented, Other (gait dysf) ...Motor Strength: WNL Psychiatric: Yes: WNL Labs: CBC, BMP 06/14/19 13:10 06/18/19 08:40 Discharge Summary Problems reviewed: Yes Reason For Visit: UNABLE TO WALK Current Active Problems Degenerative spinal arthritis (Acute) Dehydration, mild (Acute) Home help needed (Acute) Lipid disorder (Acute) Weakness (Acute) hypertensive heart Dz s/p coronary stent spinal stenosis Hyperuricemia depression with anxiety gait impairment GERD Low potassium dry eyes Hospital Course: 88 YO admitted because of inability to walk 2nd back aches and pain radiating into legs; No problem voiding or with BM or with loss of perineal sensory. No abd pains; dysuria, n-v. Has Hx of joint and back pains, and has limited ability to ambulate but usually gets around the home without much difficulty prior to the onset of this back pain. This developed 3-5 days prior to admission when she was presumably doing more bending than usual (for unclear reasons). She did not sustain and injury or had any falls. Use of Narcotics withheld due to potential complications affecting other systems, as she is not in acute pain. Not given NSAID as she is on antiPLT agents and has Hx of Gastritis. CT scan revealed degen changes and multi level spinal stenosis. Her vitals remained stable; she was able to ambulate with walker. Health Concerns: loss of independence Plan of Treatment: improve gait & stability Goals: diminish pain; improve gait Condition: Stable - Instructions Diet, Activity, Other Instructions: low salt soft diet PT for rehab pain management if needed eye evaluation Referrals: Pb Zimmerman MD [Primary Care Provider] - Disposition: [facility] - Home Medications Comprehensive Discharge Medication List: Ambulatory Orders Allopurinol [Zyloprim -] 100 mg PO DAILY 06/14/19 Amlodipine Besylate [Norvasc -] 5 mg PO DAILY 06/14/19 Aspirin 81 mg PO DAILY 06/14/19 Atorvastatin Ca [Lipitor] 40 mg PO HS 06/14/19 Ca/D3/Mag/Zinc/Mo/Blaine/Mgbor [Caltrate 600-D3-Min Chew Tab] 1 each PO DAILY Clopidogrel Bisulfate [Clopidogrel] 75 mg PO DAILY 06/14/19 Duloxetine HCl 40 mg PO DAILY 06/14/19 Famotidine 20 mg PO DAILY 06/14/19 Glucosamine/Methylsulfonylmeth [Glucosamine-MSM Caplet] 1 each PO DAILY Metoprolol Succinate [Toprol Xl] 25 mg PO BID 06/14/19 Acetaminophen [Tylenol .Extra-Strength -] 1,000 mg PO BID tablet 06/18/19 Aripiprazole [Abilify -] 2 mg PO DAILY tablet 06/18/19 Buspirone HCl 15 mg PO BID #60 tablet 06/18/19 Cyclobenzaprine HCl 5 mg PO HS tablet 06/18/19 Duloxetine HCl [Cymbalta -] 40 mg PO DAILY capsule. 06/18/19 Gabapentin [Neurontin -] 100 mg PO TID capsule 06/18/19 Potassium Chloride 10 meq PO HS #30 tablet.er 06/18/19 predniSONE [Deltasone -] 5 mg PO ASDIR #10 tab 06/18/19 artificial tears 1 drop, OU TID
[2019-06-18] MEDS ORDERED: predniSONE 20 MG TABLET (UD) PO ONE (17:00)
[2019-06-18] MEDS: busPIRone HCL 5 MG TABLET PO SCH (22:03)
[2019-06-18] MEDS: CYCLOBENZAPRINE HCL 5 MG TABLET PO SCH (22:03)
[2019-06-18] MEDS: ARTIFICIAL TEARS (POLYVINYL ALCOHOL) OPTH DROPS OU SCH (22:08)
[2019-06-19] MEDS: GABAPENTIN 100 MG CAPSULE (FP) PO SCH ×3 (06:10→21:01)
[2019-06-19] MEDS: ARTIFICIAL TEARS (POLYVINYL ALCOHOL) OPTH DROPS OU SCH ×3 (06:10→21:00)
[2019-06-19] MEDS: ACETAMINOPHEN 500 MG TABLET (FP) PO SCH ×2 (09:22→21:00)
[2019-06-19] MEDS: ARIPiprazole 2 MG TABLET PO SCH (09:22)
[2019-06-19] MEDS: CLOPIDOGREL BISULFATE 75 MG TABLET (FP) PO SCH (09:22)
[2019-06-19] MEDS: busPIRone HCL 5 MG TABLET PO SCH ×2 (09:22→21:02)
[2019-06-19] MEDS: amLODIPine BESYLATE 5 MG TABLET (FP) PO SCH (09:22)
[2019-06-19] MEDS: ENOXAPARIN NA (PORCINE) 40 MG/0.4 ML DISP.SYRIN SQ SCH (09:22)
[2019-06-19] MEDS: DULoxetine HCL 20 MG CAPSULE.DR PO SCH (09:23)
[2019-06-19] MEDS: POTASSIUM CHLORIDE TABS 20 MEQ TABLET.ER (FP) PO SCH (09:23)
[2019-06-19] MEDS: metoPROLOL SUCCINATE 25 MG TAB.SR.24H (FP) PO SCH ×2 (09:23→21:01)
[2019-06-19] MEDS: ALLOPURINOL 100 MG TABLET (FP) PO SCH (09:23)
[2019-06-19] MEDS: PANTOPRAZOLE 20 MG TABLET (FP) PO SCH (09:23)
[2019-06-19] MEDS ORDERED: predniSONE 20 MG TABLET (UD) PO ONE (15:23)
--- NOTE | 2019-06-19 15:33 | PN ---
Progress Note (short form) - Note Progress Note: Current Medications Acetaminophen (Tylenol -) 1,000 mg PO BID [facility] Last Admin: 06/19/19 09:22 Dose: 1,000 mg Allopurinol (Zyloprim -) 100 mg PO DAILY [facility] Last Admin: 06/19/19 09:23 Dose: 100 mg Amlodipine Besylate (Norvasc -) 5 mg PO DAILY [facility] Last Admin: 06/19/19 09:22 Dose: 5 mg Aripiprazole (Abilify) 2 mg PO DAILY [facility] Last Admin: 06/19/19 09:22 Dose: 2 mg Artificial Tears (Artificial Tears) 1 drop OU TID [facility] Last Admin: 06/19/19 13:42 Dose: 1 drop Buspirone HCl (Buspar -) 15 mg PO BID [facility] Last Admin: 06/19/19 09:22 Dose: 15 mg Clopidogrel Bisulfate (Plavix -) 75 mg PO DAILY [facility] Last Admin: 06/19/19 09:22 Dose: 75 mg Duloxetine HCl (Cymbalta -) 40 mg PO DAILY [facility] Last Admin: 06/19/19 09:23 Dose: 40 mg Enoxaparin Sodium (Lovenox -) 40 mg SQ DAILY [facility] Last Admin: 06/19/19 09:22 Dose: 40 mg Gabapentin (Neurontin -) 100 mg PO TID [facility] Last Admin: 06/19/19 13:41 Dose: 100 mg Metoprolol Succinate (Toprol Xl -) 25 mg PO BID [facility] Last Admin: 06/19/19 09:23 Dose: 25 mg Pantoprazole Sodium (Protonix -) 20 mg PO DAILY [facility] Last Admin: 06/19/19 09:23 Dose: 20 mg Potassium Chloride (K-Dur -) 20 meq PO DAILY [facility] Last Admin: 06/19/19 09:23 Dose: 20 meq Prednisone (Deltasone -) 20 mg PO ONCE ONE Stop: 06/19/19 15:24 Vital Signs Temperature 97.8 F 06/19/19 14:55 Pulse Rate 81 06/19/19 14:55 Respiratory Rate 20 06/19/19 14:55 Blood Pressure 129/76 06/19/19 14:55 O2 Sat by Pulse Oximetry (%) 96 06/19/19 09:00 Less pain today; c/o feeling itchy (not new) ````````````````` skin--no rashes eyes--slightly red neck--no stridor lungs--clear heart--RR abd--benign neuro--awake; verbal; no deficits ```````````````````````````````````` Summ > LBP--seems to be more mobile on this day; Muscle relaxant not likely to be helpful, as much as the Prednisone or the Neurontin is: PLAN P/T > Htn--BP okay > Pruritis--not new; pre-dated this hospitalization. No rashes noted; ? anxiety mediated; doubt drug allergy as there is no eruption. 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 Code(s): I13.10 - HYP HRT & CHR KDNY DIS W/O HRT FAIL, W STG 1-4/UNSP CHR KDNY; N18.2 - CHRONIC KIDNEY DISEASE, STAGE 2 (MILD) (3) Hyperuricemia Code(s): E79.0 - HYPERURICEMIA W/O SIGNS OF INFLAM ARTHRIT AND TOPHACEOUS DIS (4) Weakness Code(s): R53.1 - WEAKNESS (5) Anxiety and depression Code(s): F41.9 - ANXIETY DISORDER, UNSPECIFIED; F32.9 - MAJOR DEPRESSIVE DISORDER, SINGLE EPISODE, UNSPECIFIED (6) Lipid disorder Code(s): E78.9 - DISORDER OF LIPOPROTEIN METABOLISM, UNSPECIFIED (7) Home help needed Code(s): Z74.2 - NEED FOR ASSIST AT HOME & NO HOUSE MEMB ABLE TO RENDER CARE (8) Dehydration, mild Code(s): E86.0 - DEHYDRATION (9) Degenerative spinal arthritis Code(s): M47.819 - SPONDYLOSIS WITHOUT MYELOPATHY OR RADICULOPATHY, SITE UNSP (10) Conjunctiva disorder Code(s): H11.9 - UNSPECIFIED DISORDER OF CONJUNCTIVA
--- NOTE | 2019-06-19 15:38 | DS ---
Physical Examination Vital Signs: Vital Signs Temperature 97.8 F 06/19/19 14:55 Pulse Rate 81 06/19/19 14:55 Respiratory Rate 20 06/19/19 14:55 Blood Pressure 129/76 06/19/19 14:55 O2 Sat by Pulse Oximetry (%) 96 06/19/19 09:00 Labs: CBC, BMP 06/14/19 13:10 06/18/19 08:40 Discharge Summary Problems reviewed: Yes Reason For Visit: UNABLE TO WALK Current Active Problems Conjunctiva disorder (Acute) Conjunctivitis due to adenovirus, right eye (Acute) Degenerative spinal arthritis (Acute) Dehydration, mild (Acute) Home help needed (Acute) Lipid disorder (Acute) Unable to ambulate (Acute) Weakness (Acute) Hospital Course: 88 YO admitted because of inability to walk 2nd back aches and pain radiating into legs; No problem voiding or with BM or with loss of perineal sensory. No abd pains; dysuria, n-v. Has Hx of joint and back pains, and has limited ability to ambulate but usually gets around the home without much difficulty prior to the onset of this back pain. This developed 3-5 days prior to admission when she was presumably doing more bending than usual (for unclear reasons). She did not sustain and injury or had any falls. Use of Narcotics withheld due to potential complications affecting other systems, as she is not in acute pain. Not given NSAID as she is on antiPLT agents and has Hx of Gastritis. CT scan revealed degen changes and multi level spinal stenosis. Her vitals remained stable; she was able to ambulate with walker. Health Concerns: loss of independence Plan of Treatment: improve gait & stability Goals: diminish pain; improve gait Condition: Stable - Instructions Diet, Activity, Other Instructions: low salt soft diet PT for rehab pain management if needed eye evaluation Referrals: Pb Zimmerman MD [Primary Care Provider] - Disposition: RESIDENTIAL FACILITY - Home Medications Comprehensive Discharge Medication List: Ambulatory Orders (revised) Allopurinol [Zyloprim -] 100 mg PO DAILY 06/14/19 Amlodipine Besylate [Norvasc -] 5 mg PO DAILY 06/14/19 Aspirin 81 mg PO DAILY 06/14/19 Atorvastatin Ca [Lipitor] 40 mg PO HS 06/14/19 Ca/D3/Mag/Zinc/Mo/Blaine/Mgbor [Caltrate 600-D3-Min Chew Tab] 1 each PO DAILY Clopidogrel Bisulfate [Clopidogrel] 75 mg PO DAILY 06/14/19 Duloxetine HCl 40 mg PO DAILY 06/14/19 Famotidine 20 mg PO DAILY 06/14/19 Glucosamine/Methylsulfonylmeth [Glucosamine-MSM Caplet] 1 each PO DAILY Metoprolol Succinate [Toprol Xl] 25 mg PO BID 06/14/19 Acetaminophen [Tylenol .Extra-Strength -] 1,000 mg PO BID tablet 06/18/19 Aripiprazole [Abilify -] 2 mg PO DAILY tablet 06/18/19 Buspirone HCl [Buspar -] 15 mg PO BID tablet 06/18/19 Dextran 70/Hypromellose/Pf [Artificial Tears Drops] 1 each OP TID #10 droperette 06/18/19 Duloxetine HCl [Cymbalta -] 40 mg PO DAILY capsule. 06/18/19 Gabapentin [Neurontin -] 100 mg PO TID capsule 06/18/19 Potassium Chloride 10 meq PO PCHS #30 tablet.er 06/18/19 predniSONE [Deltasone -] 5 mg PO ASDIR #10 tab 06/18/19 valproic acid 250mg Q HS
[2019-06-19] MEDS: VALPROATE SODIUM 250 MG/5 ML UNIT DOSE CUP PO SCH (21:00)
[2019-06-20] MEDS: GABAPENTIN 100 MG CAPSULE (FP) PO SCH ×3 (06:04→21:16)
[2019-06-20] MEDS: ARTIFICIAL TEARS (POLYVINYL ALCOHOL) OPTH DROPS OU SCH ×3 (06:05→21:19)
[2019-06-20] MEDS: POTASSIUM CHLORIDE TABS 20 MEQ TABLET.ER (FP) PO SCH (09:19)
[2019-06-20] MEDS: ACETAMINOPHEN 500 MG TABLET (FP) PO SCH ×2 (09:19→21:16)
[2019-06-20] MEDS: amLODIPine BESYLATE 5 MG TABLET (FP) PO SCH (09:19)
[2019-06-20] MEDS: PANTOPRAZOLE 20 MG TABLET (FP) PO SCH (09:19)
[2019-06-20] MEDS: metoPROLOL SUCCINATE 25 MG TAB.SR.24H (FP) PO SCH ×2 (09:19→21:17)
[2019-06-20] MEDS: DULoxetine HCL 20 MG CAPSULE.DR PO SCH (09:19)
[2019-06-20] MEDS: CLOPIDOGREL BISULFATE 75 MG TABLET (FP) PO SCH (09:19)
[2019-06-20] MEDS: ALLOPURINOL 100 MG TABLET (FP) PO SCH (09:20)
[2019-06-20] MEDS: ENOXAPARIN NA (PORCINE) 40 MG/0.4 ML DISP.SYRIN SQ SCH (09:20)
[2019-06-20] MEDS: ARIPiprazole 2 MG TABLET PO SCH (09:20)
[2019-06-20] MEDS: busPIRone HCL 5 MG TABLET PO SCH ×2 (09:20→21:17)
[2019-06-20] MEDS ORDERED: predniSONE 10 MG TABLET (UD) PO ONE (16:02)
[2019-06-20] MEDS: VALPROATE SODIUM 250 MG/5 ML UNIT DOSE CUP PO SCH (21:17)
[2019-06-21] MEDS: GABAPENTIN 100 MG CAPSULE (FP) PO SCH ×3 (05:44→21:34)
[2019-06-21] MEDS: ARTIFICIAL TEARS (POLYVINYL ALCOHOL) OPTH DROPS OU SCH ×3 (05:46→21:35)
[2019-06-21] MEDS: CLOPIDOGREL BISULFATE 75 MG TABLET (FP) PO SCH (10:24)
[2019-06-21] MEDS: DULoxetine HCL 20 MG CAPSULE.DR PO SCH (10:24)
[2019-06-21] MEDS: ALLOPURINOL 100 MG TABLET (FP) PO SCH (10:24)
[2019-06-21] MEDS: amLODIPine BESYLATE 5 MG TABLET (FP) PO SCH (10:24)
[2019-06-21] MEDS: PANTOPRAZOLE 20 MG TABLET (FP) PO SCH (10:24)
[2019-06-21] MEDS: busPIRone HCL 5 MG TABLET PO SCH ×2 (10:24→21:34)
[2019-06-21] MEDS: ENOXAPARIN NA (PORCINE) 40 MG/0.4 ML DISP.SYRIN SQ SCH (10:24)
[2019-06-21] MEDS: metoPROLOL SUCCINATE 25 MG TAB.SR.24H (FP) PO SCH ×2 (10:25→21:34)
[2019-06-21] MEDS: ARIPiprazole 2 MG TABLET PO SCH (10:25)
[2019-06-21] MEDS: ACETAMINOPHEN 500 MG TABLET (FP) PO SCH ×2 (10:25→21:34)
[2019-06-21] MEDS: VALPROATE SODIUM 250 MG/5 ML UNIT DOSE CUP PO SCH (21:34)
[2019-06-22] MEDS: GABAPENTIN 100 MG CAPSULE (FP) PO SCH ×2 (06:27→14:25)
[2019-06-22] MEDS: ARTIFICIAL TEARS (POLYVINYL ALCOHOL) OPTH DROPS OU SCH ×2 (06:27→14:23)
[2019-06-22 06:45] VITALS: TEMP 98.4
[2019-06-22] MEDS: DULoxetine HCL 20 MG CAPSULE.DR PO SCH (10:16)
[2019-06-22] MEDS: ARIPiprazole 2 MG TABLET PO SCH (10:16)
[2019-06-22] MEDS: amLODIPine BESYLATE 5 MG TABLET (FP) PO SCH (10:16)
[2019-06-22] MEDS: ACETAMINOPHEN 500 MG TABLET (FP) PO SCH (10:16)
[2019-06-22] MEDS: ALLOPURINOL 100 MG TABLET (FP) PO SCH (10:16)
[2019-06-22] MEDS: PANTOPRAZOLE 20 MG TABLET (FP) PO SCH (10:16)
[2019-06-22] MEDS: metoPROLOL SUCCINATE 25 MG TAB.SR.24H (FP) PO SCH (10:16)
[2019-06-22] MEDS: busPIRone HCL 5 MG TABLET PO SCH (10:16)
[2019-06-22] MEDS: CLOPIDOGREL BISULFATE 75 MG TABLET (FP) PO SCH (10:16)
[2019-06-22] MEDS: ENOXAPARIN NA (PORCINE) 40 MG/0.4 ML DISP.SYRIN SQ SCH (10:17)
[2019-06-22 15:11] VITALS: BP 123/64; PULSE 72
== END 2019-06-22 16:02 | DRG 92 ==
LOC: JER 12:00 → JERBED 16:46 → J6S 06-15 15:26
PROVIDERS: ADMIT Internal Medicine; ATTEND Internal Medicine
DX: R26.9 Unspecified abnormalities of gait and mobility (principal); J98.11 Atelectasis; I13.0 Hypertensive heart and chronic kidney disease with heart failure and stage 1 through stage 4 chronic kidney disease, or unspecified chronic kidney disease; M48.07 Spinal stenosis, lumbosacral region; I25.10 Atherosclerotic heart disease of native coronary artery without angina pectoris; E78.5 Hyperlipidemia, unspecified; N18.2 Chronic kidney disease, stage 2 (mild); I50.9 Heart failure, unspecified; E87.6 Hypokalemia; F41.8 Other specified anxiety disorders; I10 Essential (primary) hypertension; E86.0 Dehydration; K57.90 Diverticulosis of intestine, part unspecified, without perforation or abscess without bleeding; K21.9 Gastro-esophageal reflux disease without esophagitis; K59.09 Other constipation; M85.88 Other specified disorders of bone density and structure, other site; E66.9 Obesity, unspecified; Z68.33 Body mass index [BMI] 33.0-33.9, adult; M47.819 Spondylosis without myelopathy or radiculopathy, site unspecified; H11.9 Unspecified disorder of conjunctiva; M51.37 Other intervertebral disc degeneration, lumbosacral region; Z74.2 Need for assistance at home and no other household member able to render care; Z95.5 Presence of coronary angioplasty implant and graft
CPT/HCPCS: 36415; 71045-TC-FY; 72131-TC; 80048; 80053; 80061; 80164; 81003; 82085; 82550; 83036; 83721; 83735; 84484; 84550; 85025; 85651; 87086; 87804; 93005; 93010; 97116-GP; 97161-GP; 99285-25; J0131; J0475; J7030